=== PATIENT | male | born 1960 | race Caucasian/White ===

== ENCOUNTER 2021-05-10 11:28 | Outpatient (REF) | payer BC, SELFPAY ==
[2021-05-10 13:57] LABS: Glucose Urine UA NEG (NEG); Leukocyte Esterase Urine NEG (NEG); Nitrite Urine NEG (NEG); Specific Gravity - Urine 1.025 (1.005-1.025); Urine Blood NEG (NEG); Urine Ketones NEG (NEG); Urine Protein NEG (NEG-TRACE)
[2021-05-10 13:58] LABS: Appearance Urine CLEAR; Color Urine YELLOW
[2021-05-10 14:02] LABS: Hematocrit 46.5 % (42-52); Hemoglobin 15.5 g/dl (14.0-18.0); Mean Corpuscular HGB Conc 33.3 g/dl (31.0-36.0); Mean Corpuscular Hemoglobin 28.2 pg (27.0-33.0); Mean Corpuscular Volume 84.7 fL (80-98); Mean Platelet Volume 10.1 fL (9.4-12.4); Platelet Count 197 X10*3/uL (160-400); Red Blood Count 5.49 X10*6/uL (4.60-5.80); Red Cell Distribution Width 13.9 % (11.0-16.0); White Blood Count 8.4 X10*3/uL (4.8-10.8)
[2021-05-10 14:05] LABS: RBC Urine 0 /HPF (0); Squamous Epithelial Cell Urine 1+ /LPF; WBC Urine 0 /HPF (0-4)
[2021-05-10 14:14] LABS: Alanine Aminotransferase 42 U/L (0-40); Albumin Level 4.4 g/dL (3.5-5.0); Alkaline Phosphatase 81 U/L (39-117); Anion Gap 13 (12-20); Aspartate Amino Transferase 38 U/L (5-37); Blood Urea Nitrogen 19 mg/dL (9-16); Calcium 9.3 mg/dL (8.4-10.2); Carbon Dioxide 23 mmol/L (22-29); Chloride 109 mmol/L (96-108); Cholesterol 121 mg/dL; Estimated Glomerular Filt Rate > 60; Glucose Fasting 104 mg/dL (60-99); HDL Cholesterol 36 mg/dL; LDL Cholesterol Calculated 69 mg/dl; Magnesium 2.1 mg/dL (1.6-2.6); Potassium 4.3 mmol/L (3.3-5.1); Sodium 141 mmol/L (135-145); Total Protein 7.7 g/dL (6.5-8.0); Triglycerides 83 mg/dL
== END 2021-05-10 11:29 | disposition home or self-care (01) ==
LOC: HO.HMGCLDS 11:28
PROVIDERS: PCP Internal Medicine; Visit Provider Internal Medicine
DX: E78.5 Hyperlipidemia, unspecified (principal); I10 Essential (primary) hypertension; I25.10 Atherosclerotic heart disease of native coronary artery without angina pectoris
CPT/HCPCS: 36415; 80053; 80061; 81001; 83735; 85027

== ENCOUNTER 2021-05-24 14:27 | Outpatient (REF) | payer BC, SELFPAY ==
--- NOTE | ~2021-05-24 | XR_ITS ---
EXAMINATION: XR CHEST CLINICAL INFORMATION: Cough. COMPARISON: None TECHNIQUE: 2 views of the chest were obtained. FINDINGS: The lungs are well-expanded and clear of acute pneumonic process. There are bilateral lower lobe nipple shadows. There are median sternotomy sutures and mediastinal from previous CABG. The heart size and the great vessels are normal caliber. There is moderate spondylosis lower ventral dorsal spine.. XR/XR chest 2V IMPRESSION: No acute cardiopulmonary process seen. Previous CABG changes are noted.
== END 2021-05-24 14:28 | disposition home or self-care (01) ==
LOC: HO.HMGCX 14:27
PROVIDERS: Visit Provider Internal Medicine
DX: R05 Cough (principal)
CPT/HCPCS: 71046

== ENCOUNTER 2021-06-17 09:10 | Outpatient (REF) | payer BC, SELFPAY ==
[2021-06-19 08:16] LABS: SARS COV2 IgG Negative (Negative)
== END 2021-06-17 09:11 | disposition home or self-care (01) ==
LOC: HO.HMGCLDS 09:10
PROVIDERS: PCP Internal Medicine; Visit Provider Internal Medicine
DX: Z20.822 Contact with and (suspected) exposure to COVID-19 (principal); R05 Cough
CPT/HCPCS: 36415; 86769

== ENCOUNTER 2021-11-04 09:16 | Outpatient (REF) | payer BC, SELFPAY ==
[2021-11-04 11:21] LABS: Hemoglobin 15.2 g/dl (14.0-18.0); Mean Corpuscular Hemoglobin 28.2 pg (27.0-33.0); Mean Corpuscular Volume 85.3 fL (80.0-98.0); Mean Platelet Volume 9.5 fL (9.4-12.4); Platelet Count 198 X10*3/uL (160-400); Red Blood Count 5.39 X10*6/uL (4.60-5.80); White Blood Count 8.5 X10*3/uL (4.8-10.8)
[2021-11-04 11:51] LABS: Alanine Aminotransferase 35 U/L (0-40); Alkaline Phosphatase 90 U/L (39-117); Anion Gap 12 (12-20); Aspartate Amino Transferase 23 U/L (5-37); Bilirubin Total 1.2 mg/dL (0.0-1.0); Blood Urea Nitrogen 10 mg/dL (9-16); Calcium 9.1 mg/dL (8.4-10.2); Carbon Dioxide 26 mmol/L (22-29); Chloride 109 mmol/L (96-108); Cholesterol 101 mg/dL; Estimated Glomerular Filt Rate > 60; Glucose Fasting 100 mg/dL (60-99); HDL Cholesterol 32 mg/dL; LDL Cholesterol Calculated 53 mg/dl; Potassium 3.9 mmol/L (3.3-5.1); Sodium 143 mmol/L (135-145); Total Protein 7.2 g/dL (6.5-8.0); Triglycerides 80 mg/dL
== END 2021-11-04 09:17 | disposition home or self-care (01) ==
LOC: HO.HMGCLDS 09:16
PROVIDERS: Visit Provider Internal Medicine
DX: Z00.00 Encounter for general adult medical examination without abnormal findings (principal); Z12.5 Encounter for screening for malignant neoplasm of prostate; E53.8 Deficiency of other specified B group vitamins; E78.5 Hyperlipidemia, unspecified; I10 Essential (primary) hypertension
CPT/HCPCS: 36415; 80053; 80061; 84153; 85027

== ENCOUNTER 2022-07-29 08:42 | Outpatient (REF) | payer BC, SELFPAY ==
[2022-07-29 11:22] LABS: MANUAL DIFF FLAG NO
[2022-07-29 11:36] LABS: Appearance Urine Clear; Color Urine Yellow; Glucose Urine UA Negative (Negative); Leukocyte Esterase Urine Negative (Negative); Nitrite Urine Negative (Negative); PH 5.5 (5.0-9.0); Urine Blood Negative (Negative); Urine Ketones Negative (Negative); Urine Protein Negative (Neg-Trace)
[2022-07-29 11:39] LABS: Bacteria Urine None Seen (None Seen); Hyaline Casts Urine 0-2 /LPF (0-2); RBC Urine 0-2 /HPF (0-2); Squamous Epithelial Cell Urine 0-2 /HPF (0-2); WBC Urine 0-5 /HPF (0-5)
[2022-07-29 12:07] LABS: Eosinophils Absolute Auto 0.6 X10*3/uL (0.0-0.4); Hematocrit 46.4 % (42.0-52.0); Hemoglobin 15.6 g/dl (14.0-18.0); Imm Gran Abs Auto 0.02 X10*3/uL (0.00-0.03); Imm Gran Pct Auto 0.2 % (0.0-0.4); Lymphocytes Absolute Auto 2.4 X10*3/uL (1.2-4.9); Lymphocytes Percent Auto 27.3 % (20-40); Mean Corpuscular HGB Conc 33.6 g/dl (31.0-36.0); Mean Corpuscular Hemoglobin 28.6 pg (27.0-33.0); Mean Corpuscular Volume 85.1 fL (80.0-98.0); Mean Platelet Volume 9.9 fL (9.4-12.4); Monocytes Absolute Auto 0.9 X10*3/uL (0.1-1.2); Monocytes Percent Auto 9.8 % (2-11); Neutrophils Absolute Auto 4.8 x10*3/uL (2.0-8.3); Neutrophils Percent Auto 55.7 % (45-73); Platelet Count 188 X10*3/uL (160-400); Red Blood Count 5.45 X10*6/uL (4.60-5.80); White Blood Count 8.7 X10*3/uL (4.8-10.8)
[2022-07-29 12:14] LABS: Folate 18.1 ng/mL (> or = 4.0); Vitamin B12 267 pg/mL (200-900)
[2022-07-29 12:45] LABS: Alanine Aminotransferase 49 U/L (0-40); Albumin Level 4.2 g/dL (3.5-5.0); Alkaline Phosphatase 82 U/L (39-117); Anion Gap 15 (12-20); Aspartate Amino Transferase 39 U/L (5-37); Bilirubin Total 1.1 mg/dL (0.0-1.0); Blood Urea Nitrogen 16 mg/dL (9-16); Calcium 8.8 mg/dL (8.4-10.2); Carbon Dioxide 22 mmol/L (22-29); Chloride 108 mmol/L (96-108); Cholesterol 108 mg/dL; Estimated Glomerular Filt Rate > 60; Glucose Random 102 mg/dL (60-115); HDL Cholesterol 36 mg/dL; LDL Cholesterol Calculated 60 mg/dl; Potassium 4.1 mmol/L (3.3-5.1); Sodium 141 mmol/L (135-145); Total Protein 7.2 g/dL (6.5-8.0); Triglycerides 61 mg/dL
[2022-07-29 14:04] LABS: PSA,Total (Free>4and<10) 0.25 ng/mL (0.00-4.00)
== END 2022-07-29 08:43 | disposition home or self-care (01) ==
LOC: HO.HMGCLDS 08:42
PROVIDERS: PCP Internal Medicine; Visit Provider Internal Medicine
DX: R10.11 Right upper quadrant pain (principal); I10 Essential (primary) hypertension; E78.5 Hyperlipidemia, unspecified; Z12.5 Encounter for screening for malignant neoplasm of prostate
CPT/HCPCS: 36415; 80053; 80061; 81001; 82607; 82746; 84153; 85025

== ENCOUNTER 2022-07-31 09:28 | Outpatient (REF) | payer BC, SELFPAY ==
--- NOTE | ~2022-07-31 | US_ITS ---
EXAMINATION: US ABDOMEN COMPLETE CLINICAL INFORMATION: Upper abdominal pain. COMPARISON: None TECHNIQUE: Real-time imaging of the abdominal viscera. FINDINGS: PANCREAS: Obscured by bowel gas. ABDOMINAL AORTA: The proximal, mid, and distal segments are normal in caliber. INFERIOR VENA CAVA: Visualized portions are normal. LIVER: Liver is prominent and increased in echotexture. No focal masses. No intrahepatic biliary dilatation. GALLBLADDER: There may be few tiny dependent stones in the gallbladder but no gallbladder wall thickening or pericholecystic fluid. COMMON BILE DUCT: Normal in caliber measuring 0.2 cm in diameter. RIGHT KIDNEY: The right kidney measures 11.2 cm in length and is nonhydronephrotic. There is an upper pole cyst at 10 mm. There is an upper pole stone at 3 mm. LEFT KIDNEY: Left kidney measures 12.5 cm in length. There is an upper pole stone at 4 mm. No hydronephrosis. No mass. SPLEEN: Normal. The spleen measures 11.3 cm in maximum dimension. FREE FLUID: None. US/US abdomen complete IMPRESSION: Small bilateral nephroliths. No hydronephrosis. Probable small gallstones. No biliary dilatation.
== END 2022-07-31 09:29 | disposition home or self-care (01) ==
LOC: HO.HMGCX 09:28
PROVIDERS: PCP Internal Medicine; Visit Provider Internal Medicine
DX: R10.11 Right upper quadrant pain (principal)
CPT/HCPCS: 76700

== ENCOUNTER 2022-11-17 09:14 | Outpatient (REF) | payer BC, SELFPAY ==
[2022-11-17 12:57] LABS: Alanine Aminotransferase 47 U/L (0-40); Albumin Level 4.1 g/dL (3.5-5.0); Alkaline Phosphatase 82 U/L (39-117); Anion Gap 12 (12-20); Aspartate Amino Transferase 33 U/L (5-37); Bilirubin Total 1.6 mg/dL (0.0-1.0); Blood Urea Nitrogen 14 mg/dL (9-16); Carbon Dioxide 25 mmol/L (22-29); Chloride 109 mmol/L (96-108); Estimated Glomerular Filt Rate > 60; Glucose Fasting 104 mg/dL (60-99); Potassium 4.1 mmol/L (3.3-5.1); Sodium 142 mmol/L (135-145)
[2022-11-17 13:15] LABS: Folate 14.6 ng/mL (> or = 4.0); Vitamin B12 363 pg/mL (200-900)
== END 2022-11-17 09:15 | disposition home or self-care (01) ==
LOC: HO.HMGCLDS 09:14
PROVIDERS: Visit Provider Internal Medicine
DX: Z00.00 Encounter for general adult medical examination without abnormal findings (principal); E53.8 Deficiency of other specified B group vitamins; I10 Essential (primary) hypertension; E78.5 Hyperlipidemia, unspecified; I25.10 Atherosclerotic heart disease of native coronary artery without angina pectoris
CPT/HCPCS: 36415; 80053; 82607; 82746

== ENCOUNTER 2022-12-03 10:00 | Outpatient (RCR) | payer BC, SELFPAY ==
[2022-10-24 10:07] VITALS: BP 140/82
--- NOTE | 2022-10-24 10:59 | MHC.PT.EP ---
[facility] [place] Office [place] Office [place] Office [address] [phone] F: [phone] F: [phone] F: [phone] F: [phone] Physical Therapy Plan of Care Date of Evaluation: Date of Surgery: Diagnosis: pain in L shoulder Assessment: 62 y/o RHD male referred to PT with L shoulder pain. S/s consistent with L shoulder impingement (? tear) and overlapping cervical derangement resulting in pain and difficulty with dressing, grooming, lifting, reaching, and work duties at a paper factory secondary to decreased cervical and shoulder AROM, decreased L shoulder strength, impaired postural awareness, TTP L cervical/shoulder region, pain, and referred L shoulder pain with cervical ROM. Recommend PT 2x/week for 2 weeks and then decrease to 1x/week as he has 20 visit hard limit per calendar year. POC to include STM/MFR, taping, cervical/chest stretching, ROM at shoulder/cervical region, and scapular/RTC strengthening. Frequency and Duration: The patient will be seen 2x/week for 6 weeks Short Term Goals: 3 weeks Compliant with HEP Improve L shoulder ROM to 130 actively with pain < 3/10 Detention Goals: 6 weeks I with HEP and self management of sx Pt will be able to don/doff jacket with pain < 3/10 Improve L shoulder strength to 4/5 throughout to faciliate lifting Treatment Plan: Modalities to reduce pain, spasms and effusion. Manual therapy to restore motion and function. Therapeutic exercise to improve strength and flexibility. Neuromuscular re-education for posture and balance. Therapeutic activities to return to functional activities of daily living. Electronically signed by: Kareen Weathers PT Please sign and return to therapist. Thank you for your referral.
--- NOTE | 2022-12-05 11:02 | MHC.PT.DC ---
[facility] [place] Office [place] Office [place] Office [address] [phone] F: [phone] F: [phone] F: [phone] F: [phone] Physical Therapy Discharge Report Diagnosis: pain in L shoulder Date of Surgery: Date of Evaluation: 10/24/22 Date of Discharge: 12/05/22 Treatments to Date: 9 Cancellations to Date: 0 No Shows to Date: 0 Discharge Status: Independent with HEP Recommend MD Follow-up Discharge Summary: Pt reports overall feeling the same. Recommend f/u with doctor for further management. He is to continue with I HEP as well. Electronically signed by: Kareen ortez PT Please sign and return to therapist. Thank you for your referral.
== END 2022-12-05 11:02 | disposition home or self-care (01) ==
LOC: HO.PTCHIC 10:00
PROVIDERS: PCP Internal Medicine; Visit Provider Internal Medicine
DX: M25.512 Pain in left shoulder (principal)
CPT/HCPCS: 97110; 97140; 97162

== ENCOUNTER 2023-01-13 09:57 | Outpatient (REF) | payer BC, SELFPAY ==
--- NOTE | ~2023-01-13 | XR_ITS ---
EXAMINATION: XR SHOULDER, LEFT CLINICAL INFORMATION: Pain. COMPARISON: None available. TECHNIQUE: Three views of the left shoulder. FINDINGS: No acute fractures or subluxation. Mild degenerative osteoarthritis of the acromioclavicular and glenohumeral joints. No abnormal soft tissue calcifications. Partially imaged mediastinal surgical clips. XR/XR shoulder LT min 2V IMPRESSION: No acute fractures or subluxation. Mild degenerative osteoarthritis.
== END 2023-01-13 09:58 | disposition home or self-care (01) ==
LOC: HO.HOSX 09:57
PROVIDERS: Visit Provider Physician Assistant
DX: S46.002A Unspecified injury of muscle(s) and tendon(s) of the rotator cuff of left shoulder, initial encounter (principal)
CPT/HCPCS: 20610; 73030; J1040

== ENCOUNTER → 2023-04-13 08:16 | Outpatient (BNVA) | payer BC, SELFPAY | PROVIDERS: PCP Internal Medicine; Visit Provider Physician Assistant | DX: S46.002A Unspecified injury of muscle(s) and tendon(s) of the rotator cuff of left shoulder, initial encounter (principal) | CPT/HCPCS: 20610; J1040 ==

== ENCOUNTER 2023-04-27 11:31 | Outpatient (AMB) | payer BC, SELFPAY ==
[2023-04-27 11:57] VITALS: BP 124/68; PULSE 75; BMI 33.9
--- NOTE | 2023-04-27 11:57 | A.OFFVIS_ITS ---
Intake Vital Signs 04/27/23 11:57 Height 5 ft 9 in Weight 229 lb 4.492 oz BMI 33.9 BP 124/68 Blood Pressure Location Lt brachial Position Sitting Pulse 75 Intake Visit Reasons: Colonoscopy Screening Intake Note: Blaine presents in office as a new.patient for a colonoscopy screening PT CC: pt reports having no concerns , 2nd colonoscopy screening pt denies any other GI Issues Vascular Surgeon Required: No Accompanied by: Daughter Allergies THEODORE Inhibitors Adverse Reaction (Intermediate, Verified 04/27/23 11:57) cough losartan Adverse Reaction (Intermediate, Verified 04/27/23 11:57) Cough HPI Colonoscopy Screening HPI Details Patient was sent to us by his PCP.? ? Patient denies any gastrointestinal symptoms in the past or at present.? However patient does reports occasional postprandial epigastric discomfort. Patient reports family history of gastric cancer. Patient's grandfather of gastric CA. Denies any personal or family history of gastrointestinal disease, colon polyps, or colorectal cancer.? Denies history of difficulty with sedation or anesthesia in the past.? Negative for history of sleep apnea, however patient does snore when sleeping on his back. Denies any history of renal, pulmonary, or hepatic disease.?? No history of infectious? diseases like hepatitis A, B, C, HIV or tuberculosis.? Patient is on low-dose aspirin. Status post CABG x3 in October of 2020. Patient currently is seeing Dr. Graham at [facility] and reports to have no symptoms. No cardiac or respiratory symptoms at this time. [facility] Medical History Annual physical exam CAD (coronary artery disease) Cough HTN (hypertension) Hyperlipidemia Vitamin B 12 deficiency Surgical History S/P CABG x 3 Social History Housing: House Patient Tobacco Use Status: Former Tobacco user Years Smoked: 40 years e-Cigarette/Vaping Use: Never Used Current occupational status: employed Current occupation: [employer] Cognitive needs: No Hearing needs: No Vision needs: No Review of Systems Const Denies weight gain and Denies weight loss ENT Reports no additional complaints, Denies dysphagia and Denies odynophagia Card Reports no additional complaints Resp Reports no additional complaints GI Reports abdominal pain (Epigastric pain postprandially), Denies belching, Denies melena, Denies bloating, Denies change in bowel habits, Denies dysphagia, Denies excessive flatus, Denies dyspepsia, Denies heartburn, Denies diarrhea, Denies loose stools, Denies nausea, Denies odynophagia and Denies vomiting Reports no additional complaints Musc Reports no additional complaints Neuro Reports no additional complaints Psych Reports no additional complaints Endo Reports no additional complaints Physical Exam Vital Signs: Last Vital Signs Pulse 75 04/27/23 11:57 BP 124/68 04/27/23 11:57 BMI result Body Mass Index 33.9 Const General: healthy appearing, no acute distress and well developed Nutritional Appearance: obese Orientation/consciousness: patient oriented x3 HEENT Head: Yes normal to inspection, Yes normocephalic and Yes atraumatic Face and sinus: Yes normal facial exam Mouth: Normal oral and palatal mucosa present Throat: Yes posterior oropharynx normal, Yes tonsils normal and Yes uvula midline Eyes General: appearance normal, both eyes and all related structures Neck Neck: Yes normal visual inspection, Yes full ROM and Yes trachea midline Thyroid: Thyroid normal Resp Effort & Inspection: normal respiratory effort, able to speak in complete sentences, no tracheal deviation and symmetric chest movement Auscultation: clear to auscultation bilaterally Cardio Rate: regular rate Heart sounds: S1 normal heart sound present and S2 normal heart sound present GI Inspection: Yes normal to inspection, No distended and Yes obesity Palpation (GI): Soft to palpation, not firm, nontender and No hepatosplenomegaly present Auscultation: normal bowel sounds General: Yes no CVA tenderness Back/Spine/Pelvis Back: no CVA tenderness Skin General skin exam: elasticity normal, turgor normal and dry skin Neuro General: patient oriented x3 Psych Appearance: grossly normal Mental Status: mental status grossly normal Speech and movement: Normal speech and movement present Affect: normal affect Assessment & Plan Assessment & Plan (1) Screen for colon cancer: Code(s): Z12.11 - Encounter for screening for malignant neoplasm of colon Plan: Patient denies any GI, cardiac or respiratory symptoms.? As mentioned above patient has a history of cardiac bypass. Sees numerical control machine machinist at [facility]. Has an appointment with him in June. Please call the office for clearance. Currently patient has no symptoms. However patient does report epigastric discomfort postprandially depending on what he eats. Patient reports that he is moving his bowels daily without any issues. Denies any issues with anesthesia in the past.? Denies any history of sleep apnea, snores when he sleeps on his back.? No history infectious diseases in the past or present.? On low-dose aspirin.? No family or personal history of colon cancer or polyps.? Patient denies melena, hematochezia, unintentional weight loss or ribbon like stools.? Discussed at length the pre-procedure,? prep, diet & medications as well as what to expect prior, during and after the procedure.?? Stressed the importance of good bowel prep. ?Recommended the use of Vaseline or Calmoseptine OTC & baby wipes with bowel movements to promote comfort.? ?Patient verbalizes understanding and agrees to plan of care.? He was given the opportunity to ask questions and all questions answered.? We will see him after the procedure.? (2) Postprandial epigastric pain: Code(s): R10.13 - Epigastric pain Plan: Postprandially gastric discomfort. Avoiding dietary triggers discussed with patient. Staying upright for minimum 3 hours after meals discussed with patient as well. Patient's grandfather from stomach cancer. Patient will be sent for upper endoscopy. We will hold off on starting him on PPI or H2 zenia. Patient might need to be started after the procedure depending on biopsy results and his symptoms. I will see him after the procedure, sooner on as needed basis. Patient is agreeable to this plan and verbalizes understanding of instructions. He was given the opportunity to ask questions and all questions answered. Thank you for allowing me to participate in his care Medications: New bisacodyl (Dulcolax (bisacodyl)) take 2 tabs at noon the day before your colonoscopy 10 mg (2 x 5 mg) PO ONCE 1 day 2 tabs 0RF Z12.11 - Encounter for screening for malignant neoplasm of colon polyethylene glycol 3350 (Miralax) As directed by gastroenterology department at [facility] 238 grams PO ONCE 238 grams 0RF Z12.11 - Encounter for screening for malignant neoplasm of colon Coding Level of Care Code New Pt Level 3 (40694) Diagnoses Screen for colon cancer Z12.11 Postprandial epigastric pain R10.13 Time Spent (min) 40 Comment 30 minutes spent with patient and additional 10 minutes spent reviewing his records
== END 2023-04-27 12:52 | disposition home or self-care (01) ==
PROVIDERS: PCP Internal Medicine; Visit Provider Nurse Practitioner Family
DX: Z01.818 Encounter for other preprocedural examination (principal); Z12.11 Encounter for screening for malignant neoplasm of colon; R10.13 Epigastric pain
CPT/HCPCS: S0285

== ENCOUNTER → 2023-04-27 11:31 | Outpatient (BNVA) | payer BC, SELFPAY | PROVIDERS: PCP Internal Medicine; Visit Provider Nurse Practitioner Family ==

== ENCOUNTER 2023-05-25 11:16 | Outpatient (AMB) | payer BC, SELFPAY ==
--- NOTE | 2023-05-25 11:28 | AM.OFFVISNUR ---
Intake Intake Visit Reasons: B12 Intake Note: Pt arrived for monthly B12,he missed injection in April. Allergies THEODORE Inhibitors Adverse Reaction (Intermediate, Verified 04/27/23 11:57) cough losartan Adverse Reaction (Intermediate, Verified 04/27/23 11:57) Cough Office Meds cyanocobalamin (vitamin B-12) Performing Provider: Yanely Mcgraw MD Administered by: Lisa Graham RN on 05/25/23 11:29 Dose Route Admin Location Lot Number Expiration Date [facility] Range Scientist 1,000 mcg IM right deltoid [id number] 08/19/24 1011-2647-44 [facility] Comments: Pt supplied Coding Diagnoses Assessment & Plan Assessment & Plan Orders: Orders AMB Vitamin B12 Injection Patient Supplied Today E53.8 - Deficiency of other specified B group vitamins
== END 2023-05-25 13:10 | disposition home or self-care (01) ==
PROVIDERS: PCP Internal Medicine; Visit Provider Internal Medicine
DX: E53.8 Deficiency of other specified B group vitamins (principal)
CPT/HCPCS: 96372; J3420

== ENCOUNTER 2023-07-01 11:28 | Outpatient (AMB) | payer BC, SELFPAY ==
--- NOTE | 2023-07-01 11:37 | AM.OFFVISNUR ---
Intake Intake Visit Reasons: B12 Intake Note: Pt arrived for monthly B12 injection Allergies THEODORE Inhibitors Adverse Reaction (Intermediate, Verified 04/27/23 11:57) cough losartan Adverse Reaction (Intermediate, Verified 04/27/23 11:57) Cough Office Meds cyanocobalamin (vitamin B-12) 1,000 mcg/mL injection solution Performing Provider: Yanely Mcgraw MD [facility] Administered by: Lisa Graham RN on 07/01/23 11:38 Dose Route Admin Location Dispensed Lot Number Expiration Date [employer] Film Processing Supervisor 1,000 mcg IM left deltoid 1 mL [id number] 05/19/24 9781-0632-60 [facility] Comments: Pt supplied Coding Assessment & Plan Assessment & Plan Orders: Orders AMB Vitamin B12 Injection Patient Supplied Today E53.8 - Deficiency of other specified B group vitamins
== END 2023-07-01 12:25 | disposition home or self-care (01) ==
LOC: HO.HMGC 11:28
PROVIDERS: PCP Internal Medicine; Visit Provider Internal Medicine
DX: E53.8 Deficiency of other specified B group vitamins (principal)
CPT/HCPCS: 96372; J3420

== ENCOUNTER 2023-08-04 11:13 | Outpatient (AMB) | payer BC, SELFPAY ==
--- NOTE | 2023-08-04 11:17 | AM.OFFVISNUR ---
Intake Intake Visit Reasons: B12 Allergies THEODORE Inhibitors Adverse Reaction (Intermediate, Verified 04/27/23 11:57) cough losartan Adverse Reaction (Intermediate, Verified 04/27/23 11:57) Cough Office Meds cyanocobalamin (vitamin B-12) 1,000 mcg/mL injection solution Performing Provider: Yanely Mcgraw MD Performing Location[facility] Administered by: Renee Byrd RN on 08/04/23 11:20 Dose Route Admin Location Dispensed Lot Number Expiration Date [facility] Artificial [employer] [place] 1,000 mcg IM Right deltoid 1 mL [id number] 06/17/24 0181-0370-62 [facility] Comments: Pt supplied Coding Assessment & Plan Assessment & Plan Orders: Orders AMB Vitamin B12 Injection Patient Supplied Today E53.8 - Deficiency of other specified B group vitamins
== END 2023-08-04 12:27 | disposition home or self-care (01) ==
LOC: HO.HMGC 11:13
PROVIDERS: PCP Internal Medicine; Visit Provider Internal Medicine
DX: E53.8 Deficiency of other specified B group vitamins (principal)
CPT/HCPCS: 96372; J3420

== ENCOUNTER 2023-08-24 10:30 | Outpatient (AMB) | payer BC, SELFPAY ==
[2023-08-24 10:32] VITALS: BP 120/74; PULSE 102; O2SAT 96; BMI 33.7
--- NOTE | 2023-08-24 10:32 | A.OFFPC_ITS ---
Vital Signs 08/24/23 10:32 Height 5 ft 9 in Weight 228 lb BMI 33.7 BP 120/74 Blood Pressure Location Lt brachial Position Sitting Pulse 102 H Pulse Source Pulse Oximeter Pulse Oximetry (%) 96 Oxygen Delivery Method Room Air Intake Visit Reasons: sore throat Intake Note: Pt is here today for a sick visit. Pt c/o sore throat cough, fever since Thursday. Pt states that he was also bit by a tick. Allergies THEODORE Inhibitors Adverse Reaction (Intermediate, Verified 08/24/23 10:38) cough losartan Adverse Reaction (Intermediate, Verified 08/24/23 10:38) Cough Medication List - Last Reconciled 08/24/23 by Yanely Mcgraw MD albuterol sulfate 90 mcg/actuation 2 puffs inhalation Q6H PRN amlodipine 5 mg PO DAILY ascorbic acid (vitamin C) 500 mg PO DAILY aspirin 81 mg PO DAILY atorvastatin 80 mg PO DAILY benzonatate 100 mg PO TID bisacodyl (Dulcolax (bisacodyl)) 10 mg (2 x 5 mg) PO ONCE 1 day cyanocobalamin (vitamin B-12) 1,000 mcg subcut Q4W hydralazine 100 mg PO BID metoprolol tartrate 50 mg PO BID polyethylene glycol 3350 (Miralax) 238 grams PO ONCE sumatriptan succinate 1 tabl at onset of headache, repeat in 2 hrs as needed orally every 2 hours PRN; do not exceed 2 doses per 24 hrs Tobacco use date assessed: 08/24/23 Dental Screening Dental Screen Date: 08/24/23 Did you have a dental visit in the last 12 months?: Yes Did you have a dental problem in the last 6 months where you did not have access to dental care?: No Was dental information given to patient?: Patient has dentist HPI sore throat HPI Details Pt c/o sore throat, nasal congestion, cough, fever for 3 days. HTN is controlled. [facility] Medical History Annual physical exam CAD (coronary artery disease) Cough HTN (hypertension) Hyperlipidemia Vitamin B 12 deficiency Surgical History S/P CABG x 3 Social History Housing: House Patient Tobacco Use Status: Former Tobacco user Years Smoked: 40 years e-Cigarette/Vaping Use: Never Used Current occupational status: employed Current occupation: [employer] Cognitive needs: No Hearing needs: No Vision needs: No Questionnaire Thrive Questionnaire Date Thrive assessed: 07/29/22 SOTO-7 AMB Questionnaire SOTO-7 Date SOTO - 7 assessed: 07/29/22 Source: Developed by Drs. Ciro Leiva, Julissa Rey, Manpreet Sherman and colleagues, with an educational alice from [employer]. Review of Systems Const All systems reviewed & are unremarkable except as noted in HPI and below Reports no additional complaints Eyes Reports no additional complaints ENT Reports no additional complaints Resp Reports no additional complaints GI Reports no additional complaints Reports no additional complaints Physical exam (Primary Care) Vital Signs: Last Vital Signs Pulse 102 H 08/24/23 10:32 BP 138/74 08/24/23 10:32 Pulse Ox 96 08/24/23 10:32 Oxygen Delivery Method Room Air 08/24/23 10:32 BMI result Body Mass Index 33.7 Tobacco/Smoking Status: Tobacco use Status Tobacco use date assessed 08/24/23 08/24/23 10:38 Patient Tobacco Use Status Former Tobacco user 08/24/23 10:38 e-Cigarette/Vaping Use Never Used 08/24/23 10:38 Thrive Assessment: Date of Thrive Assessment Date Thrive assessed 07/29/22 08/24/23 10:38 Const General: no acute distress HENMT Ears: hearing grossly normal bilaterally and TM's normal bilaterally Face and sinus: Yes normal facial exam and No sinus tenderness Throat: Yes posterior oropharynx abnormal (erythema) and Yes postnasal drainage Eyes General: appearance normal, both eyes and all related structures Resp Effort & Inspection: normal respiratory effort Auscultation: clear to auscultation bilaterally Cardio Rhythm: regular rhythm Heart sounds: S1 normal heart sound present and S2 normal heart sound present GI Inspection: Yes normal to inspection Palpation (GI): Soft to palpation Assessment and Plan Assessment & Plan (1) HTN (hypertension): Comment: Intolerant to THEODORE inhibitors and ARBs Code(s): I10 - Essential (primary) hypertension Plan: Continue current medications, pt will return for fasting blood work (2) Hyperlipidemia: Code(s): E78.5 - Hyperlipidemia, unspecified Plan: Continue statin (3) CAD (coronary artery disease): Comment: CABG 3 vessels 10/2020, f/u PVC Dr. Ozuna Code(s): I25.10 - Atherosclerotic heart disease of [place] coronary artery without angina pectoris (4) Hyperglycemia: Code(s): R73.9 - Hyperglycemia, unspecified (5) URI (upper respiratory infection): Code(s): J06.9 - Acute upper respiratory infection, unspecified Plan: SUPPORTIVE CARE DISCUSSED WITH THE PATIENT ,CHECK RESPIRATORY PANEL Orders: Orders SARS-CoV2/FLU/RSV Today J06.9 - Acute upper respiratory infection, unspecified Comprehensive [place]. Panel Fast Today E78.5 - Hyperlipidemia, unspecified, I10 - Essential (primary) hypertension, I25.10 - Atherosclerotic heart disease of [place] coronary artery without angina pectoris, R73.9 - Hyperglycemia, unspecified Complete Blood Count Auto Diff Today E78.5 - Hyperlipidemia, unspecified, I10 - Essential (primary) hypertension, I25.10 - Atherosclerotic heart disease of [place] coronary artery without angina pectoris, R73.9 - Hyperglycemia, unspecified Lipid Panel Today E78.5 - Hyperlipidemia, unspecified, I10 - Essential (primary) hypertension, I25.10 - Atherosclerotic heart disease of [place] coronary artery without angina pectoris, R73.9 - Hyperglycemia, unspecified Hemoglobin A1c Today E78.5 - Hyperlipidemia, unspecified, I10 - Essential (primary) hypertension, I25.10 - Atherosclerotic heart disease of [place] coronary artery without angina pectoris, R73.9 - Hyperglycemia, unspecified PSA,Total (Free>4and<10) Today E78.5 - Hyperlipidemia, unspecified, I10 - Essential (primary) hypertension, I25.10 - Atherosclerotic heart disease of [place] coronary artery without angina pectoris, R73.9 - Hyperglycemia, unspecified UA w Microscopic Today E78.5 - Hyperlipidemia, unspecified, I10 - Essential (primary) hypertension, I25.10 - Atherosclerotic heart disease of [place] coronary artery without angina pectoris, R73.9 - Hyperglycemia, unspecified Coding Level of Care Code Est Pt Level 3 (16426) Diagnoses HTN (hypertension) I10 Hyperlipidemia E78.5 CAD (coronary artery disease) I25.10 Hyperglycemia R73.9 URI (upper respiratory infection) J06.9
== END 2023-08-24 11:16 | disposition home or self-care (01) ==
PROVIDERS: PCP Internal Medicine; Visit Provider Internal Medicine
DX: I10 Essential (primary) hypertension (principal); E78.5 Hyperlipidemia, unspecified; I25.10 Atherosclerotic heart disease of native coronary artery without angina pectoris; R73.9 Hyperglycemia, unspecified; J06.9 Acute upper respiratory infection, unspecified
CPT/HCPCS: 99213

== ENCOUNTER 2023-08-24 11:05 | Outpatient (REF) | payer BC, SELFPAY ==
[2023-08-24 15:00] LABS: Influenza A PCR NEGATIVE (Negative); Influenza B PCR NEGATIVE (Negative); Resp Syncy Virus RNA Qual PCR NEGATIVE (Negative); SARS COV2 PCR INHOUSE POSITIVE (Negative)
== END 2023-08-24 11:06 | disposition home or self-care (01) ==
LOC: HO.LAB 11:05
PROVIDERS: Visit Provider Internal Medicine
DX: Z11.52 Encounter for screening for COVID-19 (principal); J06.9 Acute upper respiratory infection, unspecified
CPT/HCPCS: 0241U

== ENCOUNTER 2023-09-01 09:40 | Outpatient (REF) | payer BC, SELFPAY ==
[2023-09-01 11:44] LABS: MANUAL DIFF FLAG NO
[2023-09-01 11:48] LABS: Appearance Urine Clear; Color Urine Yellow; Glucose Urine UA Negative (Negative); Leukocyte Esterase Urine Negative (Negative); Nitrite Urine Negative (Negative); Specific Gravity - Urine 1.025 (1.005-1.025); Urine Blood Negative (Negative); Urine Ketones Negative (Negative); Urine Protein Trace mg/dL (Neg-Trace)
[2023-09-01 12:00] LABS: Estimated Average Glucose 111 mg/dL; Hemoglobin A1c % 5.5 % (<6.0)
[2023-09-01 12:06] LABS: Bacteria Urine None Seen (None Seen); Hyaline Casts Urine 0-2 /LPF (0-2); RBC Urine 0-2 /HPF (0-2); Squamous Epithelial Cell Urine 0-2 /HPF (0-2); WBC Urine 0-5 /HPF (0-5)
[2023-09-01 12:14] LABS: Eosinophils Absolute Auto 0.2 X10*3/uL (0.0-0.4); Eosinophils Percent Auto 2.6 % (0-4); Hematocrit 44.1 % (42.0-52.0); Hemoglobin 15.2 g/dl (14.0-18.0); Imm Gran Abs Auto 0.01 X10*3/uL (0.00-0.03); Imm Gran Pct Auto 0.1 % (0.0-0.4); Lymphocytes Absolute Auto 2.3 X10*3/uL (1.2-4.9); Lymphocytes Percent Auto 30.9 % (20-40); Mean Corpuscular HGB Conc 34.5 g/dl (31.0-36.0); Mean Corpuscular Hemoglobin 29.8 pg (27.0-33.0); Mean Corpuscular Volume 86.5 fL (80.0-98.0); Mean Platelet Volume 10.2 fL (9.4-12.4); Monocytes Absolute Auto 0.7 X10*3/uL (0.1-1.2); Monocytes Percent Auto 9.7 % (2-11); Neutrophils Absolute Auto 4.2 x10*3/uL (2.0-8.3); Neutrophils Percent Auto 56.7 % (45-73); Platelet Count 212 X10*3/uL (160-400); Red Cell Distribution Width 12.8 % (11.0-16.0); White Blood Count 7.4 X10*3/uL (4.8-10.8)
[2023-09-01 12:19] LABS: Alanine Aminotransferase 30 U/L (0-40); Albumin Level 4.1 g/dL (3.5-5.0); Alkaline Phosphatase 76 U/L (39-117); Anion Gap 12 (12-20); Aspartate Amino Transferase 30 U/L (5-37); Blood Urea Nitrogen 13 mg/dL (9-16); Calcium 8.8 mg/dL (8.4-10.2); Carbon Dioxide 24 mmol/L (22-29); Chloride 108 mmol/L (96-108); Cholesterol 114 mg/dL (<200); Estimated Glomerular Filt Rate > 60; Glucose Fasting 96 mg/dL (60-99); HDL Cholesterol 35 mg/dL (>40); LDL Cholesterol Calculated 64 mg/dL (<100); Potassium 3.5 mmol/L (3.3-5.1); Sodium 140 mmol/L (135-145); Total Protein 7.4 g/dL (6.5-8.0); Triglycerides 78 mg/dL (<150)
[2023-09-01 12:31] LABS: PSA,Total (Free>4and<10) 0.26 ng/mL (0.00-4.00)
== END 2023-09-01 09:41 | disposition home or self-care (01) ==
LOC: HO.HMGCLDS 09:40
PROVIDERS: PCP Internal Medicine; Visit Provider Internal Medicine
DX: Z12.5 Encounter for screening for malignant neoplasm of prostate (principal); I10 Essential (primary) hypertension; E78.5 Hyperlipidemia, unspecified; I25.10 Atherosclerotic heart disease of native coronary artery without angina pectoris; R73.9 Hyperglycemia, unspecified
CPT/HCPCS: 36415; 80053; 80061; 81001; 83036; 84153; 85025

== ENCOUNTER 2023-09-01 09:54 | Outpatient (AMB) | payer BC, SELFPAY ==
--- NOTE | 2023-09-01 10:10 | AM.OFFVISNUR ---
Intake Intake Visit Reasons: B12 Shot Intake Note: Pt arrived for monthly B 12 injection Allergies THEODORE Inhibitors Adverse Reaction (Intermediate, Verified 08/24/23 10:38) cough losartan Adverse Reaction (Intermediate, Verified 08/24/23 10:38) Cough Office Meds cyanocobalamin (vitamin B-12) 1,000 mcg/mL injection solution Performing Provider: Yanely Mcgraw MD Performing Location: [facility] Administered by: Lisa Graham RN on 09/01/23 10:11 Dose Route Admin Location Dispensed Lot Number Expiration Date [place] Casino Enforcement Agent 1,000 mcg IM left deltoid 1 mL [id number] 05/19/24 [id number] [facility] Comments: Pt supplied Coding Assessment & Plan Assessment & Plan Orders: Orders AMB Vitamin B12 Injection Patient Supplied Today E53.8 - Deficiency of other specified B group vitamins
== END 2023-09-01 10:20 | disposition home or self-care (01) ==
LOC: HO.HMGC 09:54
PROVIDERS: PCP Internal Medicine; Visit Provider Internal Medicine
DX: E53.8 Deficiency of other specified B group vitamins (principal)
CPT/HCPCS: 96372; J3420

== ENCOUNTER 2023-10-07 11:58 | Outpatient (AMB) | payer BC, SELFPAY ==
--- NOTE | 2023-10-07 11:56 | AM.OFFVISNUR ---
Intake Intake Visit Reasons: B-12 Shot Intake Note: Pt arrived for monthly B12 injection Allergies THEODORE Inhibitors Adverse Reaction (Intermediate, Verified 08/24/23 10:38) cough losartan Adverse Reaction (Intermediate, Verified 08/24/23 10:38) Cough Office Meds cyanocobalamin (vitamin B-12) 1,000 mcg/mL injection solution Performing Provider: Yanely Mcgraw MD Performing Location: [facility] Administered by: Lisa Graham RN on 10/07/23 11:57 Dose Route Admin Location Dispensed Lot Number Expiration Date [place] Senior Solutions Architect 1,000 mcg IM right deltoid 1 mL [id number] 08/19/24 4850-7752-46 [facility] Comments: Pt supplied Coding Assessment & Plan Assessment & Plan Orders: Orders AMB Vitamin B12 Injection Patient Supplied Today E53.8 - Deficiency of other specified B group vitamins
== END 2023-10-07 16:14 | disposition home or self-care (01) ==
LOC: HO.HMGC 11:58
PROVIDERS: PCP Internal Medicine; Visit Provider Internal Medicine
DX: E53.8 Deficiency of other specified B group vitamins (principal)
CPT/HCPCS: 96372; J3420

== ENCOUNTER 2023-11-10 11:14 | Outpatient (AMB) | payer BC, SELFPAY ==
--- NOTE | 2023-11-10 11:30 | AM.OFFVISNUR ---
Intake Intake Visit Reasons: B12 Intake Note: Pt arrived for monthly B-12 injection. Allergies THEODROE Inhibitors Adverse Reaction (Intermediate, Verified 08/24/23 10:38) cough losartan Adverse Reaction (Intermediate, Verified 08/24/23 10:38) Cough Office Meds cyanocobalamin (vitamin B-12) 1,000 mcg/mL injection solution Performing Provider: Yanely Mcgraw MD Performing Location: [facility] Administered by: Lisa Graham RN on 11/10/23 11:31 Dose Route Admin Location Dispensed Lot Number Expiration Date [place] Motorcyles Final Inspector 1,000 mcg IM right deltoid 1 mL [id number] 08/19/24 9233-9710-22 [facility] Comments: Pt supplied Coding Assessment & Plan Assessment & Plan Orders: Orders AMB Vitamin B12 Injection Patient Supplied Today E53.8 - Deficiency of other specified B group vitamins
== END 2023-11-10 13:02 | disposition home or self-care (01) ==
LOC: HO.HMGC 11:14
PROVIDERS: PCP Internal Medicine; Visit Provider Internal Medicine
DX: E53.8 Deficiency of other specified B group vitamins (principal)
CPT/HCPCS: 96372; J3420

== ENCOUNTER 2023-11-18 10:29 | Outpatient (AMB) | payer BC, SELFPAY ==
--- NOTE | 2023-11-18 10:35 | MHC.PC.OV ---
Vital Signs 11/18/23 10:36 Height 5 ft 9 in Weight 227 lb BMI 33.5 BP 120/74 Blood Pressure Location Lt brachial Position Sitting Pulse 62 Pulse Source Pulse Oximeter Pulse Oximetry (%) 96 Oxygen Delivery Method Room Air Intake Visit Reasons: Annual PE Intake Note: Pt is here today for PE. Pt states that he would like to have xray done for his back and his L hip. Allergies THEODORE Inhibitors Adverse Reaction (Intermediate, Verified 11/18/23 10:38) cough losartan Adverse Reaction (Intermediate, Verified 11/18/23 10:38) Cough Tobacco use date assessed: 11/18/23 Dental Screening Dental Screen Date: 11/18/23 Did you have a dental visit in the last 12 months?: Yes Did you have a dental problem in the last 6 months where you did not have access to dental care?: No Was dental information given to patient?: Patient has dentist HPI Annual PE HPI Details Pt presents for PE. Pt c/o L groin pain worse when walking for 3 months. Pt c/o chronic neck and upper back pain for 2 months worse when bending forward at work. [facility] Medical History Annual physical exam Cough Vitamin B 12 deficiency HTN (hypertension) CAD (coronary artery disease) Hyperlipidemia Surgical History S/P CABG x 3 Social History Housing: [place] Patient Tobacco Use Status: Former Tobacco user Years Smoked: 40 years e-Cigarette/Vaping Use: Never Used Current occupational status: employed Current occupation: [employer] Cognitive needs: No Hearing needs: No Vision needs: No Questionnaire PHQ-9 Over the last 2 weeks, how often have you been bothered by any of the following problems? 1. Little interest or pleasure in doing things: not at all 2. Feeling down, depressed, or hopeless: not at all 3. Trouble falling or staying asleep, or sleeping too much: not at all 4. Feeling tired or having little energy: not at all 5. Poor appetite or overeating: not at all 6. Feeling bad about yourself - or that you are a failure or have let yourself or your family down: not at all 7. Trouble concentrating on things, such as reading the newspaper or watching television: not at all 8. Moving or speaking so slowly that other people could have noticed. Or the opposite - being so fidgety or restless that you have been moving around a lot more than usual: not at all 9. Thoughts that you would be better off or of hurting yourself in some way: not at all Total score: 0 Depression Screening Interpretation: Negative Depression Screening Done: Yes Source: Developed by Drs. Ciro Leiva, Julissa Rey, Manpreet Sherman and colleagues, with an educational alice from [employer]. Thrive Questionnaire Date Thrive assessed: 11/18/23 I am a: Patient What is your living situation today?: I have a steady place to live Within the past 12 months, did the food you bought not last and you didn't have the money to get more?: Never true Within the past 12 months, did you worry whether your food would run out before you got money to buy more?: Never true Do you have trouble paying for medicines?: No Do you have trouble getting transportation to medical appointments?: No Do you have trouble paying your heating and electricity bill?: No Do you have trouble taking care of your child, family member or friend?: No Do you have trouble with day-to-day activities such as bathing, preparing meals, shopping, managing finances, etc.?: No Are you currently unemployed and looking for a job?: No Are you interested in more education?: No Please select the resources that you would like help with: None Currently or been in a relationship where the following occur: no concerns reported THRIVE Score: 0 AUDIT C Alcohol Use Questionnaire (AUDIT-C) 1. How often do you have a drink containing alcohol?: Never 3. How often do you have six or more drinks on one occasion?: Never Total Score: 0 SOTO-7 AMB Questionnaire SOTO-7 Date SOTO - 7 assessed: 11/18/23 Feeling nervous, anxious, or on edge: 0 = Not at all Not being able to stop or control worryin = Not at all Worrying too much about different things: 0 = Not at all Trouble relaxin = Not at all Being so restless that it is hard to sit still: 0 = Not at all Becoming easily annoyed or irritable: 0 = Not at all Feeling afraid as if something awful might happen: 0 = Not at all Total SOTO-7 score (0-4 normal; 5-9 mild; 10-14 moderate; 15-21 severe): 0 Source: Developed by Drs. Ciro Leiva, Julissa Rey, Manpreet Sherman and colleagues, with an educational alice from [employer]. Review of Systems Const All systems reviewed & are unremarkable except as noted in HPI and below Reports no additional complaints Eyes Reports no additional complaints ENT Reports no additional complaints Card Reports no additional complaints Resp Reports no additional complaints GI Reports no additional complaints Reports no additional complaints Physical exam (Primary Care) Vital Signs: Last Vital Signs Pulse 62 11/18/23 10:36 BP 120/74 11/18/23 10:36 Pulse Ox 96 11/18/23 10:36 Oxygen Delivery Method Room Air 11/18/23 10:36 BMI result Body Mass Index 33.5 Tobacco/Smoking Status: Tobacco use Status Tobacco use date assessed 11/18/23 11/18/23 10:41 Patient Tobacco Use Status Former Tobacco user 11/18/23 10:41 e-Cigarette/Vaping Use Never Used 11/18/23 10:41 PHQ-9: PHQ-9 Score PHQ-9: Total score 0 11/18/23 10:41 Depression Screening Interpretation: Negative Thrive Assessment: Date of Thrive Assessment Date Thrive assessed 11/18/23 11/18/23 10:41 Currently or been in a relationship where the following occur: no concerns reported Const General: no acute distress HENMT Head: Yes normal to inspection Ears: hearing grossly normal bilaterally Mouth: Normal oral and palatal mucosa present Eyes General: appearance normal, both eyes and all related structures Neck Neck: Yes no lymphadenopathy and Yes supple Resp Effort & Inspection: normal respiratory effort Auscultation: clear to auscultation bilaterally Cardio Rhythm: regular rhythm Heart sounds: S1 normal heart sound present and S2 normal heart sound present GI Inspection: Yes normal to inspection Palpation (GI): Soft to palpation Percussion: Yes normal to percussion Auscultation: normal bowel sounds Back/Spine/Pelvis Other: paraspinal tenderness and muscle spasm in lower cervical and upper thoracic region. There is decreased range of motion of left hip Assessment and Plan Assessment & Plan (1) Hip pain, left: Code(s): M25.552 - Pain in left hip Plan: Check x-rays of left hip, patient was advised to start exercising on stationary bike and if the symptoms persist he will be referred to orthopedic surgeon (2) Neck pain: Code(s): M54.2 - Cervicalgia Plan: Check x-rays of cervical and thoracic spine refer for physical therapy, ergonomic work arrangement to avoid neck strain discussed with the patient (3) Hyperglycemia: Code(s): R73.9 - Hyperglycemia, unspecified Plan: Continue ADA diet regular exercise monitor A1c (4) Vitamin B 12 deficiency: Code(s): E53.8 - Deficiency of other specified B group vitamins Plan: Continue B12 injections check the level (5) HTN (hypertension): Comment: Intolerant to THEODORE inhibitors and ARBs Code(s): I10 - Essential (primary) hypertension Plan: Continue current medications (6) Hyperlipidemia: Code(s): E78.5 - Hyperlipidemia, unspecified Plan: Continue statin return in 6 months Orders: Orders XR thoracic spine 2V Today M25.552 - Pain in left hip, M54.2 - Cervicalgia PT Evaluation and Treatment Today M54.2 - Cervicalgia Comprehensive [employer]. Panel Fast 6 Months E53.8 - Deficiency of other specified B group vitamins, E78.5 - Hyperlipidemia, unspecified, I10 - Essential (primary) hypertension, R73.9 - Hyperglycemia, unspecified Lipid Panel 6 Months E53.8 - Deficiency of other specified B group vitamins, E78.5 - Hyperlipidemia, unspecified, I10 - Essential (primary) hypertension, R73.9 - Hyperglycemia, unspecified Complete Blood Count Auto Diff 6 Months E53.8 - Deficiency of other specified B group vitamins, E78.5 - Hyperlipidemia, unspecified, I10 - Essential (primary) hypertension, R73.9 - Hyperglycemia, unspecified Hemoglobin A1c 6 Months E53.8 - Deficiency of other specified B group vitamins, E78.5 - Hyperlipidemia, unspecified, I10 - Essential (primary) hypertension, R73.9 - Hyperglycemia, unspecified XR hip LT min 2V Today M25.552 - Pain in left hip, M54.2 - Cervicalgia XR cervical spine 3V Today M25.552 - Pain in left hip, M54.2 - Cervicalgia Vitamin B12 and Folate 6 Months E53.8 - Deficiency of other specified B group vitamins, E78.5 - Hyperlipidemia, unspecified, I10 - Essential (primary) hypertension, R73.9 - Hyperglycemia, unspecified Medications: New naproxen 500 mg PO BID 60 tabs 0RF Coding Level of Care Code Est Pt Prev Care 40-64y(87620) Diagnoses Hip pain, left M25.552 Neck pain M54.2 Hyperglycemia R73.9 Vitamin B 12 deficiency E53.8 HTN (hypertension) I10 Hyperlipidemia E78.5
[2023-11-18 10:36] VITALS: BP 120/74; PULSE 62; O2SAT 96; BMI 33.5
== END 2023-11-18 11:25 | disposition home or self-care (01) ==
PROVIDERS: PCP Internal Medicine; Visit Provider Internal Medicine
DX: Z00.00 Encounter for general adult medical examination without abnormal findings (principal); E53.8 Deficiency of other specified B group vitamins; M54.2 Cervicalgia; M25.552 Pain in left hip; R73.9 Hyperglycemia, unspecified; I10 Essential (primary) hypertension; E78.5 Hyperlipidemia, unspecified
CPT/HCPCS: 99396

== ENCOUNTER 2023-11-18 11:21 | Outpatient (REF) | payer BC, SELFPAY ==
--- NOTE | ~2023-11-18 | XR_ITS ---
EXAMINATION: XR HIP, LEFT CLINICAL INFORMATION: Left hip pain. COMPARISON: None available. TECHNIQUE: Two views of the left hip. FINDINGS: No acute fracture or dislocation. Mild joint space narrowing with lateral acetabular marginal osteophytes. Unfused osteophyte versus accessory ossicle adjacent to the acetabulum measuring up to 0.9 cm. No concerning lytic or blastic osseous lesion. No evidence of avascular necrosis. XR/XR hip LT min 2V IMPRESSION: Mild left hip osteoarthritis.
--- NOTE | ~2023-11-18 | XR_ITS ---
EXAMINATION: XR CERVICAL SPINE CLINICAL INFORMATION: Neck pain. COMPARISON: None available. TECHNIQUE: AP, lateral, open-mouth, and swimmer's views of the cervical spine. FINDINGS: Normal vertebral body alignment. The cervical lordosis is maintained. No acute fracture or subluxation. No loss of vertebral body height. Normal atlantoaxial alignment. No significant loss of intervertebral disc height. Tiny anterior endplate osteophytes at C5-C7. Unremarkable facets. No concerning lytic or blastic osseous lesion. Unremarkable prevertebral soft tissues. Partially visualized sternal wires. XR/XR cervical spine 3V IMPRESSION: Minimal degenerative disc disease at C5-C7.
--- NOTE | ~2023-11-18 | XR_ITS ---
EXAMINATION: XR THORACOLUMBAR SPINE CLINICAL INFORMATION: Pain in left hip and neck area. COMPARISON: Chest radiographs of 05/24/2021. TECHNIQUE: AP and lateral views of the thoracic spine. FINDINGS: Redemonstration of postsurgical changes with median sternotomy wires and clips status post CABG. Dextroscoliosis of the thoracolumbar spine. Advanced multilevel degenerative changes in the thoracic spine with multilevel hypertrophic change most notable in the [id number] lumbar spine, progressed since 2020 exam. Visualization of the most superior and inferior vertebral bodies is limited due to overlying bony and soft tissue structures. XR/XR thoracic spine 2V IMPRESSION: Advanced multilevel degenerative changes in the thoracic spine with multilevel hypertrophic change most notable in the mid to lower lumbar spine, progressed since 2020 exam. This study was presented November 18, 2023 at 12:45 PM for interpretation. Stat results provided at this time as requested by referring provider.
== END 2023-11-18 11:22 | disposition home or self-care (01) ==
LOC: HO.HMGCX 11:21
PROVIDERS: PCP Internal Medicine; Visit Provider Internal Medicine
DX: M25.552 Pain in left hip (principal); M54.2 Cervicalgia; M54.6 Pain in thoracic spine
CPT/HCPCS: 72040; 72070; 73502

== ENCOUNTER 2023-12-14 09:21 | Outpatient (AMB) | payer BC, SELFPAY ==
--- NOTE | 2023-12-14 09:29 | AM.OFFVISNUR ---
Intake Intake Visit Reasons: B-12 Intake Note: Pt arrived for monthly B-12 injection Drapery Counselor Required: No Allergies THEODORE Inhibitors Adverse Reaction (Intermediate, Verified 12/14/23 09:30) cough losartan Adverse Reaction (Intermediate, Verified 12/14/23 09:30) Cough Medication List - Last Reconciled 12/14/23 by Lisa Graham RN albuterol sulfate 90 mcg/actuation 2 puffs inhalation Q6H PRN amlodipine 5 mg PO DAILY ascorbic acid (vitamin C) 500 mg PO DAILY aspirin 81 mg PO DAILY atorvastatin 80 mg PO DAILY bisacodyl (Dulcolax (bisacodyl)) 10 mg (2 x 5 mg) PO ONCE 1 day cyanocobalamin (vitamin B-12) 1,000 mcg subcut Q4W hydralazine 100 mg PO BID metoprolol tartrate 50 mg PO BID naproxen 500 mg PO BID polyethylene glycol 3350 (Miralax) 238 grams PO ONCE sumatriptan succinate 1 tabl at onset of headache, repeat in 2 hrs as needed orally every 2 hours PRN; do not exceed 2 doses per 24 hrs Do you need a note to return to daycare/school/sports/work: No Office Meds cyanocobalamin (vitamin B-12) 1,000 mcg/mL injection solution Performing Provider: Yanely Mcgraw MD Performing Location: [facility] Administered by: Lisa Graham RN on 12/14/23 09:30 Dose Route Admin Location Dispensed Lot Number Expiration Date ND Clinical Laboratory Science Professor 1,000 mcg IM Left deltoid 1 mL [id number] 08/19/24 5146-6384-80 [facility] Comments: Pt supplied Coding Assessment & Plan Assessment & Plan Orders: Orders AMB Vitamin B12 Injection Patient Supplied Today E53.8 - Deficiency of other specified B group vitamins
== END 2023-12-14 09:30 | disposition home or self-care (01) ==
LOC: HO.HMGC 09:22
PROVIDERS: PCP Internal Medicine; Visit Provider Internal Medicine
DX: E53.8 Deficiency of other specified B group vitamins (principal)
CPT/HCPCS: 96372; J3420

== ENCOUNTER 2024-01-11 09:00 | Outpatient (AMB) | payer BC, SELFPAY ==
--- NOTE | 2024-01-11 09:07 | AM.OFFVISNUR ---
Intake Intake Visit Reasons: B-12 Intake Note: Pt arrived for monthly B-12 injection Allergies THEODORE Inhibitors Adverse Reaction (Intermediate, Verified 12/14/23 09:30) cough losartan Adverse Reaction (Intermediate, Verified 12/14/23 09:30) Cough Office Meds cyanocobalamin (vitamin B-12) 1,000 mcg/mL injection solution Performing Provider: Yanely Mcgraw MD Performing Location: [facility] Administered by: Lisa Graham RN on 01/11/24 09:08 Dose Route Admin Location Dispensed Lot Number Expiration Date ND Hardwood Floor Refinisher 1,000 mcg IM right deltoid 1 mL [id number] 08/19/24 4682-5464-63 [facility] Comments: Pt supplied Coding Assessment & Plan Assessment & Plan Orders: Orders AMB Vitamin B12 Injection Patient Supplied Today E53.8 - Deficiency of other specified B group vitamins
== END 2024-01-11 10:08 | disposition home or self-care (01) ==
PROVIDERS: PCP Internal Medicine; Visit Provider Internal Medicine
DX: E53.8 Deficiency of other specified B group vitamins (principal)
CPT/HCPCS: 96372; J3420

== ENCOUNTER 2024-02-08 08:51 | Outpatient (AMB) | payer BC, SELFPAY ==
--- NOTE | 2024-02-08 09:01 | AM.OFFVISNUR ---
Intake Intake Visit Reasons: B-12 Intake Note: Pt arrived for monthly B-12 injection Allergies THEODORE Inhibitors Adverse Reaction (Intermediate, Verified 12/14/23 09:30) cough losartan Adverse Reaction (Intermediate, Verified 12/14/23 09:30) Cough Office Meds cyanocobalamin (vitamin B-12) 1,000 mcg/mL injection solution Performing Provider: Yanely Mcgraw MD Performing Location: [facility] Administered by: Lisa Graham RN on 02/08/24 09:01 Dose Route Admin Location Dispensed Lot Number Expiration Date NDC Booth Usher 1,000 mcg IM Right deltoid 1 mL [id number] 07/19/25 9377-9668-61 [facility] Comments: Pt supplied Coding Assessment & Plan Assessment & Plan Orders: Orders AMB Vitamin B12 Injection Patient Supplied Today E53.8 - Deficiency of other specified B group vitamins Medications: New cyanocobalamin (vitamin B-12) 1,000 mcg IM ONCE 1 mL 0RF E53.8 - Deficiency of other specified B group vitamins
== END 2024-02-08 09:12 | disposition home or self-care (01) ==
PROVIDERS: PCP Internal Medicine; Visit Provider Internal Medicine
DX: E53.8 Deficiency of other specified B group vitamins (principal)
CPT/HCPCS: 96372; J3420

== ENCOUNTER 2024-03-03 09:00 | Outpatient (AMB) | payer BC, SELFPAY ==
--- NOTE | 2024-03-03 09:06 | AM.OFFVISNUR ---
Intake Intake Visit Reasons: B12 Intake Note: Pt arrived for monthly B-12 injection Allergies THEODORE Inhibitors Adverse Reaction (Intermediate, Verified 12/14/23 09:30) cough losartan Adverse Reaction (Intermediate, Verified 12/14/23 09:30) Cough Office Meds cyanocobalamin (vitamin B-12) 1,000 mcg/mL injection solution Performing Provider: Yanely Mcgraw MD Performing Location: [facility] Administered by: Lisa Graham RN on 03/03/24 09:06 Dose Route Admin Location Dispensed Lot Number Expiration Date ND Animal Shelter Supervisor 1,000 mcg IM Right deltoid 1 mL [id number] 07/19/25 4193-2049-59 [facility] Comments: Pt supplied Coding Assessment & Plan Assessment & Plan Orders: Orders AMB Vitamin B12 Injection Patient Supplied Today E53.8 - Deficiency of other specified B group vitamins Medications: New cyanocobalamin (vitamin B-12) 1,000 mcg IM ONCE 1 mL 0RF E53.8 - Deficiency of other specified B group vitamins
== END 2024-03-03 09:11 | disposition home or self-care (01) ==
LOC: HO.HMGC 09:00
PROVIDERS: PCP Internal Medicine; Visit Provider Internal Medicine
DX: E53.8 Deficiency of other specified B group vitamins (principal)
CPT/HCPCS: 96372; J3420

== ENCOUNTER 2024-03-28 08:56 | Outpatient (AMB) | payer BC, SELFPAY ==
--- NOTE | 2024-03-28 09:40 | AM.OFFVISNUR ---
Intake Intake Visit Reasons: B12 Intake Note: Pt arrived for monthly B-12 Allergies THEODORE Inhibitors Adverse Reaction (Intermediate, Verified 12/14/23 09:30) cough losartan Adverse Reaction (Intermediate, Verified 12/14/23 09:30) Cough Office Meds cyanocobalamin (vitamin B-12) 1,000 mcg/mL injection solution Performing Provider: Yanely Mcgraw MD Performing Location: [facility] Administered by: Lisa Graham RN on 03/28/24 09:41 Dose Route Admin Location Dispensed Lot Number Expiration Date ND Conservation Or Heritage Architect 1,000 mcg IM Right deltoid 1 mL [id number] 07/19/25 6439-3096-64 [facility] Comments: Pt supplied Coding Assessment & Plan Assessment & Plan Orders: Orders AMB Vitamin B12 Injection Patient Supplied Today E53.8 - Deficiency of other specified B group vitamins Medications: New cyanocobalamin (vitamin B-12) 1,000 mcg IM ONCE 1 mL 0RF E53.8 - Deficiency of other specified B group vitamins
== END 2024-03-28 10:56 | disposition home or self-care (01) ==
PROVIDERS: PCP Internal Medicine; Visit Provider Internal Medicine
DX: E53.8 Deficiency of other specified B group vitamins (principal)
CPT/HCPCS: 96372; J3420

== ENCOUNTER 2024-04-25 08:46 | Outpatient (AMB) | payer BC, SELFPAY ==
--- NOTE | 2024-04-25 09:09 | AM.OFFVISNUR ---
Intake Visit Reasons: B12 Intake Note: Pt arrived for monthly B-12 injection Allergies THEODORE Inhibitors Adverse Reaction (Intermediate, Verified 12/14/23 09:30) cough losartan Adverse Reaction (Intermediate, Verified 12/14/23 09:30) Cough Office Meds cyanocobalamin (vitamin B-12) 1,000 mcg/mL injection solution Performing Provider: Yanely Mcgraw MD Performing Location: [facility] Administered by: Lisa Graham RN on 04/25/24 09:10 Dose Route Admin Location Dispensed Lot Number Expiration Date ND Airplane Designer 1,000 mcg IM left deltoid 1 mL [id number] 08/19/25 0264-5482-22 [facility] Comments: Pt supplied Assessment & Plan Assessment & Plan Orders: Orders AMB Vitamin B12 Injection Patient Supplied Today E53.8 - Deficiency of other specified B group vitamins Medications: New cyanocobalamin (vitamin B-12) 1,000 mcg IM ONCE 1 mL 0RF E53.8 - Deficiency of other specified B group vitamins
== END 2024-04-25 09:08 | disposition home or self-care (01) ==
PROVIDERS: PCP Internal Medicine; Visit Provider Internal Medicine
DX: E53.8 Deficiency of other specified B group vitamins (principal)
CPT/HCPCS: 96372; J3420

== ENCOUNTER 2024-05-16 09:13 | Outpatient (AMB) | payer BC, SELFPAY ==
[2024-05-16 09:20] VITALS: BP 94/60; PULSE 70; O2SAT 96; BMI 34.0
--- NOTE | 2024-05-16 09:20 | MHC.PC.OV ---
Vital Signs 05/16/24 09:20 Height 5 ft 9 in Weight 230 lb BMI 34.0 BP 94/60 Blood Pressure Location Rt brachial Position Sitting Pulse 70 Pulse Source Pulse Oximeter Pulse Oximetry (%) 96 Oxygen Delivery Method Room Air Intake Visit Reasons: Follow up visit Intake Note: Pt is here today for a follow up visit. Pt is fasting and would like to have blood work done and urine test. Allergies THEODORE Inhibitors Adverse Reaction (Intermediate, Verified 05/16/24 09:41) cough losartan Adverse Reaction (Intermediate, Verified 05/16/24 09:41) Cough Medication List - Last Reconciled 05/16/24 by Yanely Mcgraw MD albuterol sulfate 90 mcg/actuation 2 puffs inhalation Q6H PRN amlodipine 5 mg PO DAILY ascorbic acid (vitamin C) 500 mg PO DAILY aspirin 81 mg PO DAILY atorvastatin 80 mg PO DAILY bisacodyl (Dulcolax (bisacodyl)) 10 mg (2 x 5 mg) PO ONCE 1 day cyanocobalamin (vitamin B-12) 1,000 mcg subcut Q4W hydralazine 100 mg PO BID metoprolol tartrate 50 mg PO BID naproxen 500 mg PO BID polyethylene glycol 3350 (Miralax) 238 grams PO ONCE sumatriptan succinate 1 tabl at onset of headache, repeat in 2 hrs as needed orally every 2 hours PRN; do not exceed 2 doses per 24 hrs Tobacco use date assessed: 05/16/24 Fall risk assessment: No Falls in past year Last assessed Fall Risk: 05/16/24 Dental Screening Dental Screen Date: 05/16/24 Did you have a dental visit in the last 12 months?: Yes Did you have a dental problem in the last 6 months where you did not have access to dental care?: No Was dental information given to patient?: Patient has dentist HPI Follow up visit HPI Details Pt presents for f/u HTN, hyperlipid,stable on meds. Pt reports increased urinary frequency at night. [facility] Medical History Annual physical exam Cough Vitamin B 12 deficiency HTN (hypertension) CAD (coronary artery disease) Hyperlipidemia Surgical History S/P CABG x 3 Social History Housing: House Patient Tobacco Use Status: Former Tobacco user Years Smoked: 40 years e-Cigarette/Vaping Use: Never Used service: No Current occupational status: employed Current occupation: [employer] Cognitive needs: No Hearing needs: No Vision needs: No Questionnaire Thrive Questionnaire Date Thrive assessed: 11/18/23 AUDIT C Alcohol Use Questionnaire (AUDIT-C) 1. How often do you have a drink containing alcohol?: Never 3. How often do you have six or more drinks on one occasion?: Never Total Score: 0 SOTO-7 AMB Questionnaire SOTO-7 Date SOTO - 7 assessed: 11/18/23 Source: Developed by Drs. Ciro Leiva, Julissa Rey, Manpreet Sherman and colleagues, with an educational alice from [email or web address]. Review of Systems Const All systems reviewed & are unremarkable except as noted in HPI and below ENT Reports no additional complaints Card Reports no additional complaints Resp Reports no additional complaints GI Reports no additional complaints Physical exam (Primary Care) Vital Signs: Last Vital Signs Pulse 70 05/16/24 09:20 BP 94/60 05/16/24 09:20 Pulse Ox 96 05/16/24 09:20 Oxygen Delivery Method Room Air 05/16/24 09:20 BMI result Body Mass Index 34.0 Tobacco/Smoking Status: Tobacco use Status Tobacco use date assessed 05/16/24 05/16/24 09:43 Patient Tobacco Use Status Former Tobacco user 05/16/24 09:20 e-Cigarette/Vaping Use Never Used 05/16/24 09:20 Thrive Assessment: Date of Thrive Assessment Date Thrive assessed 11/18/23 05/16/24 09:20 Const General: no acute distress HENMT Mouth: Normal oral and palatal mucosa present Resp Effort & Inspection: normal respiratory effort Auscultation: clear to auscultation bilaterally Cardio Rhythm: regular rhythm Heart sounds: S1 normal heart sound present and S2 normal heart sound present GI Inspection: Yes normal to inspection Palpation (GI): Soft to palpation Percussion: Yes normal to percussion Assessment and Plan Assessment & Plan (1) HTN (hypertension): Comment: Intolerant to THEODORE inhibitors and ARBs Code(s): I10 - Essential (primary) hypertension Plan: BLOOD PRESSURE IS LOW AND PATIENT WILL DECREASE AMLODIPINE TO HALF A TABLET AND CONTINUE HYDRALAZINE (2) CAD (coronary artery disease): Comment: CABG 3 vessels 10/2020, f/u PVC Dr. Ozuna Code(s): I25.10 - Atherosclerotic heart disease of [place] coronary artery without angina pectoris Plan: Continue current medications follow-up with Cardiology (3) BPH (benign prostatic hyperplasia): Code(s): N40.0 - Benign prostatic hyperplasia without lower urinary tract symptoms Plan: Start tamsulosin follow-up in 2 months Medications: New tamsulosin (Flomax) 0.4 mg PO BEDTIME 90 caps 0RF Coding Level of Care Code Est Pt Level 4 (19671) Diagnoses HTN (hypertension) I10 CAD (coronary artery disease) I25.10 BPH (benign prostatic hyperplasia) N40.0
== END 2024-05-16 11:11 | disposition home or self-care (01) ==
PROVIDERS: PCP Internal Medicine; Visit Provider Internal Medicine
DX: I10 Essential (primary) hypertension (principal); I25.10 Atherosclerotic heart disease of native coronary artery without angina pectoris; N40.0 Benign prostatic hyperplasia without lower urinary tract symptoms
CPT/HCPCS: 99214

== ENCOUNTER 2024-05-16 10:15 | Outpatient (REF) | payer BC, SELFPAY ==
[2024-05-16 13:27] LABS: MANUAL DIFF FLAG NO
[2024-05-16 13:51] LABS: Basophils Percent Auto 0.1 % (0-2); Eosinophils Absolute Auto 0.4 X10*3/uL (0.0-0.4); Hematocrit 46.4 % (42.0-52.0); Hemoglobin 15.6 g/dl (14.0-18.0); Imm Gran Abs Auto 0.03 X10*3/uL (0.00-0.03); Imm Gran Pct Auto 0.3 % (0.0-0.4); Lymphocytes Absolute Auto 2.2 X10*3/uL (1.2-4.9); Lymphocytes Percent Auto 21.5 % (20-40); Mean Corpuscular HGB Conc 33.6 g/dl (31.0-36.0); Mean Corpuscular Hemoglobin 29.3 pg (27.0-33.0); Mean Corpuscular Volume 87.1 fL (80.0-98.0); Mean Platelet Volume 9.7 fL (9.4-12.4); Monocytes Absolute Auto 0.8 X10*3/uL (0.1-1.2); Monocytes Percent Auto 8.1 % (2-11); Neutrophils Absolute Auto 6.8 x10*3/uL (2.0-8.3); Platelet Count 206 X10*3/uL (160-400); Red Blood Count 5.33 X10*6/uL (4.60-5.80); White Blood Count 10.3 X10*3/uL (4.8-10.8)
[2024-05-16 14:21] LABS: Alanine Aminotransferase 38 U/L (0-40); Albumin Level 4.1 g/dL (3.5-5.0); Alkaline Phosphatase 74 U/L (39-117); Anion Gap 11 (12-20); Aspartate Amino Transferase 26 U/L (5-37); Bilirubin Total 1.2 mg/dL (0.0-1.0); Blood Urea Nitrogen 20 mg/dL (9-16); Calcium 9.5 mg/dL (8.4-10.2); Carbon Dioxide 27 mmol/L (22-29); Chloride 106 mmol/L (96-108); Cholesterol 122 mg/dL (<200); Estimated Glomerular Filt Rate > 60; Glucose Fasting 107 mg/dL (60-99); HDL Cholesterol 37 mg/dL (>40); LDL Cholesterol Calculated 62 mg/dL (<100); Sodium 140 mmol/L (135-145); Total Protein 7.2 g/dL (6.5-8.0); Triglycerides 117 mg/dL (<150)
[2024-05-16 14:33] LABS: Vitamin B12 334 pg/mL (200-900)
[2024-05-16 14:38] LABS: Estimated Average Glucose 114 mg/dL; Hemoglobin A1c % 5.6 % (<6.0)
== END 2024-05-16 10:16 | disposition home or self-care (01) ==
LOC: HO.HMGCLDS 10:15
PROVIDERS: PCP Internal Medicine; Visit Provider Internal Medicine
DX: R73.9 Hyperglycemia, unspecified (principal); E53.8 Deficiency of other specified B group vitamins; I10 Essential (primary) hypertension; E78.5 Hyperlipidemia, unspecified
CPT/HCPCS: 36415; 80053; 80061; 82607; 82746; 83036; 85025

== ENCOUNTER 2024-05-30 08:57 | Outpatient (AMB) | payer BC, SELFPAY ==
--- NOTE | 2024-05-30 09:05 | AM.OFFVISNUR ---
Intake Visit Reasons: B12 Intake Note: Pt arrived for monthly B-12 injection Allergies THEODORE Inhibitors Adverse Reaction (Intermediate, Verified 05/16/24 09:41) cough losartan Adverse Reaction (Intermediate, Verified 05/16/24 09:41) Cough Office Meds cyanocobalamin (vitamin B-12) 1,000 mcg/mL injection solution Performing Provider: Yanely Mcgraw MD Performing Location: [facility] Administered by: Lisa Graham RN on 05/30/24 09:06 Dose Route Admin Location Dispensed Lot Number Expiration Date ND Machine Lead Burner 1,000 mcg IM left deltoid 1 mL [id number] 08/19/25 5128-7828-31 [facility] Comments: Pt supplied Assessment & Plan Assessment & Plan Orders: Orders AMB Vitamin B12 Injection Patient Supplied Today E53.8 - Deficiency of other specified B group vitamins Medications: New cyanocobalamin (vitamin B-12) 1,000 mcg IM ONCE 1 mL 0RF E53.8 - Deficiency of other specified B group vitamins
== END 2024-05-30 09:13 | disposition home or self-care (01) ==
PROVIDERS: PCP Internal Medicine; Visit Provider Internal Medicine
DX: E53.8 Deficiency of other specified B group vitamins (principal)
CPT/HCPCS: 96372; J3420

== ENCOUNTER 2024-06-13 09:22 | Outpatient (AMB) | payer BC, SELFPAY ==
--- NOTE | 2024-06-13 09:22 | A.OFFPC_ITS ---
Vital Signs 06/13/24 09:23 Height 5 ft 9 in Weight 235 lb BMI 34.7 BP 120/72 Blood Pressure Location Lt brachial Position Sitting Pulse 68 Pulse Source Pulse Oximeter Pulse Oximetry (%) 95 Oxygen Delivery Method Room Air Intake Visit Reasons: 1 month follow up visit Allergies THEODORE Inhibitors Adverse Reaction (Intermediate, Verified 06/13/24 09:25) cough losartan Adverse Reaction (Intermediate, Verified 06/13/24 09:25) Cough Medication List - Last Reconciled 06/13/24 by Yanely Mcgraw MD albuterol sulfate 90 mcg/actuation 2 puffs inhalation Q6H PRN amlodipine 5 mg PO DAILY ascorbic acid (vitamin C) 500 mg PO DAILY aspirin 81 mg PO DAILY atorvastatin 80 mg PO DAILY bisacodyl (Dulcolax (bisacodyl)) 10 mg (2 x 5 mg) PO ONCE 1 day cyanocobalamin (vitamin B-12) 1,000 mcg subcut Q4W hydralazine 100 mg PO BID metoprolol tartrate 50 mg PO BID naproxen 500 mg PO BID polyethylene glycol 3350 (Miralax) 238 grams PO ONCE sumatriptan succinate 1 tabl at onset of headache, repeat in 2 hrs as needed orally every 2 hours PRN; do not exceed 2 doses per 24 hrs tamsulosin (Flomax) 0.4 mg PO BEDTIME Tobacco use date assessed: 06/13/24 Dental Screening Dental Screen Date: 05/16/24 HPI 1 month follow up visit HPI Details Patient presents for the follow-up on hypertension hyperlipidemia BPH symptomatically improved on Flomax. [facility] Medical History Annual physical exam Cough Vitamin B 12 deficiency HTN (hypertension) CAD (coronary artery disease) Hyperlipidemia Surgical History S/P CABG x 3 Social History Housing: House Patient Tobacco Use Status: Former Tobacco user Years Smoked: 40 years e-Cigarette/Vaping Use: Never Used service: No Current occupational status: employed Current occupation: [employer] Cognitive needs: No Hearing needs: No Vision needs: No Questionnaire Thrive Questionnaire Date Thrive assessed: 11/18/23 SOTO-7 AMB Questionnaire SOTO-7 Date SOTO - 7 assessed: 11/18/23 Source: Developed by Drs. Ciro Leiva, Julissa Rey, Manpreet Sherman and colleagues, with an educational alice from [employer]. Review of Systems Const All systems reviewed & are unremarkable except as noted in HPI and below Reports no additional complaints Eyes Reports no additional complaints ENT Reports no additional complaints Card Reports no additional complaints Resp Reports no additional complaints GI Reports no additional complaints Reports no additional complaints Physical exam (Primary Care) Vital Signs: Last Vital Signs Pulse 68 06/13/24 09:23 BP 120/72 06/13/24 09:23 Pulse Ox 95 06/13/24 09:23 Oxygen Delivery Method Room Air 06/13/24 09:23 BMI result Body Mass Index 34.7 Tobacco/Smoking Status: Tobacco use Status Tobacco use date assessed 06/13/24 06/13/24 09:25 Patient Tobacco Use Status Former Tobacco user 06/13/24 09:25 e-Cigarette/Vaping Use Never Used 06/13/24 09:25 Thrive Assessment: Date of Thrive Assessment Date Thrive assessed 11/18/23 06/13/24 09:25 Const General: no acute distress HENMT Head: Yes normal to inspection Ears: hearing grossly normal bilaterally Face and sinus: Yes normal facial exam Mouth: Normal oral and palatal mucosa present Throat: Yes posterior oropharynx normal Eyes General: appearance normal, both eyes and all related structures Neck Neck: Yes supple Resp Effort & Inspection: normal respiratory effort Auscultation: clear to auscultation bilaterally Cardio Rhythm: regular rhythm Heart sounds: S1 normal heart sound present and S2 normal heart sound present GI Inspection: Yes normal to inspection Palpation (GI): Soft to palpation Percussion: Yes normal to percussion Auscultation: normal bowel sounds Assessment and Plan Assessment & Plan (1) Hyperlipidemia: Code(s): E78.5 - Hyperlipidemia, unspecified Plan: cont statin (2) CAD (coronary artery disease): Comment: CABG 3 vessels 10/2020, f/u PVC Dr. Ozuna Code(s): I25.10 - Atherosclerotic heart disease of [place] coronary artery without angina pectoris Plan: cont meds (3) HTN (hypertension): Comment: Intolerant to THEODORE inhibitors and ARBs Code(s): I10 - Essential (primary) hypertension Plan: cont meds Orders: Orders Hemoglobin A1c 6 Months E78.5 - Hyperlipidemia, unspecified, I10 - Essential (primary) hypertension, I25.10 - Atherosclerotic heart disease of [place] coronary artery without angina pectoris Microalbumin, Random (w Creat) 6 Months E78.5 - Hyperlipidemia, unspecified, I10 - Essential (primary) hypertension, I25.10 - Atherosclerotic heart disease of [place] coronary artery without angina pectoris Comprehensive [place]. Panel Fast 6 Months E78.5 - Hyperlipidemia, unspecified, I10 - Essential (primary) hypertension, I25.10 - Atherosclerotic heart disease of [place] coronary artery without angina pectoris Lipid Panel 6 Months E78.5 - Hyperlipidemia, unspecified, I10 - Essential (primary) hypertension, I25.10 - Atherosclerotic heart disease of [place] coronary artery without angina pectoris Coding Level of Care Code Est Pt Level 4 (61480) Diagnoses Hyperlipidemia E78.5 CAD (coronary artery disease) I25.10 HTN (hypertension) I10
[2024-06-13 09:23] VITALS: BP 120/72; PULSE 68; O2SAT 95; BMI 34.7
== END 2024-06-13 11:25 | disposition home or self-care (01) ==
LOC: HO.HMGC 09:22
PROVIDERS: PCP Internal Medicine; Visit Provider Internal Medicine
DX: E78.5 Hyperlipidemia, unspecified (principal); I25.10 Atherosclerotic heart disease of native coronary artery without angina pectoris; I10 Essential (primary) hypertension
CPT/HCPCS: 99214

== ENCOUNTER 2024-07-01 08:54 | Outpatient (AMB) | payer BC, SELFPAY ==
--- NOTE | 2024-07-01 09:05 | AM.OFFVISNUR ---
Intake Visit Reasons: B12 Intake Note: Pt arrived for monthly B-12 injection Allergies THEODORE Inhibitors Adverse Reaction (Intermediate, Verified 06/13/24 09:25) cough losartan Adverse Reaction (Intermediate, Verified 06/13/24 09:25) Cough Office Meds cyanocobalamin (vitamin B-12) 1,000 mcg/mL injection solution Performing Provider: Yanely Mcgraw MD Performing Location: [facility] Administered by: Lisa Graham RN on 07/01/24 09:07 Dose Route Admin Location Dispensed Lot Number Expiration Date [place] [employer] Specialist 1,000 mcg IM left deltoid 1 mL [id number] 08/19/25 2207-9202-27 [facility] Comments: Pt supplied Assessment & Plan Assessment & Plan Orders: Orders AMB Vitamin B12 Injection Patient Supplied Today E53.8 - Deficiency of other specified B group vitamins Medications: New cyanocobalamin (vitamin B-12) 1,000 mcg IM ONCE 1 mL 0RF E53.8 - Deficiency of other specified B group vitamins
== END 2024-07-01 09:19 | disposition home or self-care (01) ==
PROVIDERS: PCP Internal Medicine; Visit Provider Internal Medicine
DX: E53.8 Deficiency of other specified B group vitamins (principal)
CPT/HCPCS: 96372; J3420

== ENCOUNTER 2024-08-01 09:26 | Outpatient (AMB) | payer BC, SELFPAY ==
--- NOTE | 2024-08-01 09:50 | AM.OFFVISNUR ---
Intake Visit Reasons: b12 Allergies THEODORE Inhibitors Adverse Reaction (Intermediate, Verified 06/13/24 09:25) cough losartan Adverse Reaction (Intermediate, Verified 06/13/24 09:25) Cough Office Meds cyanocobalamin (vitamin B-12) 1,000 mcg/mL injection solution Performing Provider: Yanely Mcgraw MD [place] [facility] [place] Administered by: Mellissa Parker on 08/01/24 09:50 Dose Route Admin Location Dispensed Lot Number Expiration Date [facility] Outsole Rounder 1,000 mcg IM 1 mL 09/07/25 [id number] [facility] 1,000 mcg IM r deltoid 1 mL Assessment & Plan Assessment & Plan Orders: Orders AMB Vitamin B12 Injection Patient Supplied Today E53.8 - Deficiency of other specified B group vitamins Medications: New cyanocobalamin (vitamin B-12) 1,000 mcg IM ONCE 1 mL 0RF E53.8 - Deficiency of other specified B group vitamins
== END 2024-08-01 10:00 | disposition home or self-care (01) ==
PROVIDERS: PCP Internal Medicine; Visit Provider Internal Medicine
DX: E53.8 Deficiency of other specified B group vitamins (principal)
CPT/HCPCS: J3420

== ENCOUNTER → 2024-08-01 09:26 | Outpatient (BNVA) | payer BC, SELFPAY | PROVIDERS: PCP Internal Medicine; Visit Provider Internal Medicine | DX: E53.8 Deficiency of other specified B group vitamins (principal) | CPT/HCPCS: 96372 ==

== ENCOUNTER 2024-09-01 09:27 | Outpatient (AMB) | payer BC, SELFPAY ==
--- NOTE | 2024-09-01 10:03 | AM.OFFVISNUR ---
Intake Visit Reasons: b12 Intake Note: Pt arrived for Monthly B-12 injection Allergies THEODORE Inhibitors Adverse Reaction (Intermediate, Verified 06/13/24 09:25) cough losartan Adverse Reaction (Intermediate, Verified 06/13/24 09:25) Cough Office Meds cyanocobalamin (vitamin B-12) 1,000 mcg/mL injection solution Performing Provider: Yanely Mcgraw MD [place] [facility] [place] Administered by: Lisa Graham RN on 09/01/24 10:03 Dose Route Admin Location Dispensed Lot Number Expiration Date [facility] Transferrer 1,000 mcg IM right deltoid 1 mL [id number] 02/16/26 3038-0310-41 [facility] Comments: Pt supplied Assessment & Plan Assessment & Plan Orders: Orders AMB Vitamin B12 Injection Patient Supplied Today E53.8 - Deficiency of other specified B group vitamins Medications: New cyanocobalamin (vitamin B-12) 1,000 mcg IM ONCE 1 mL 0RF E53.8 - Deficiency of other specified B group vitamins
== END 2024-09-01 10:08 | disposition home or self-care (01) ==
PROVIDERS: PCP Internal Medicine; Visit Provider Internal Medicine
DX: E53.8 Deficiency of other specified B group vitamins (principal)
CPT/HCPCS: J3420

== ENCOUNTER → 2024-09-01 09:27 | Outpatient (BNVA) | payer BC, SELFPAY | PROVIDERS: PCP Internal Medicine; Visit Provider Internal Medicine | DX: E53.8 Deficiency of other specified B group vitamins (principal) | CPT/HCPCS: 96372 ==

== ENCOUNTER 2024-10-04 08:25 | Outpatient (AMB) | payer BC, SELFPAY ==
--- NOTE | 2024-10-04 08:31 | AM.OFFVISNUR ---
Intake Visit Reasons: B12 Allergies THEODORE Inhibitors Adverse Reaction (Intermediate, Verified 06/13/24 09:25) cough losartan Adverse Reaction (Intermediate, Verified 06/13/24 09:25) Cough Nursing Note Pt ambulate (I) gait steady to room 5. Medicated x 1 with Vitamin B12 to right deltoid.
== END 2024-10-04 08:54 | disposition home or self-care (01) ==
PROVIDERS: PCP Internal Medicine; Visit Provider Internal Medicine
DX: E53.8 Deficiency of other specified B group vitamins (principal)

== ENCOUNTER → 2024-10-04 08:25 | Outpatient (BNVA) | payer BC, SELFPAY | PROVIDERS: PCP Internal Medicine; Visit Provider Internal Medicine | DX: E53.8 Deficiency of other specified B group vitamins (principal) | CPT/HCPCS: 96372; J3420 ==

== ENCOUNTER 2024-10-31 08:30 | Outpatient (AMB) | payer BC, SELFPAY ==
--- NOTE | 2024-10-31 08:39 | AM.OFFVISNUR ---
Intake Visit Reasons: B12 Intake Note: Pt arrived for monthly B-12 injection Allergies THEODORE Inhibitors Adverse Reaction (Intermediate, Verified 06/13/24 09:25) cough losartan Adverse Reaction (Intermediate, Verified 06/13/24 09:25) Cough Office Meds cyanocobalamin (vitamin B-12) 1,000 mcg/mL injection solution Performing Provider: Yaenly Mcgraw MD Performing Location: [facility] [place] [facility] Administered by: Lisa Graham RN on 10/31/24 08:39 Dose Route Admin Location Dispensed Lot Number Expiration Date [facility] Director Ship 1,000 mcg IM left deltoid 1 mL [id number] 02/16/26 3921-9441-62 [facility] Comments: Pt supplied Assessment & Plan Assessment & Plan Orders: Orders AMB Vitamin B12 Injection Patient Supplied Today E53.8 - Deficiency of other specified B group vitamins Medications: New cyanocobalamin (vitamin B-12) 1,000 mcg IM ONCE 1 mL 0RF E53.8 - Deficiency of other specified B group vitamins
== END 2024-10-31 08:39 | disposition home or self-care (01) ==
LOC: HO.HMCC 08:30
PROVIDERS: PCP Internal Medicine; Visit Provider Internal Medicine
DX: E53.8 Deficiency of other specified B group vitamins (principal)

== ENCOUNTER → 2024-10-31 08:30 | Outpatient (BNVA) | payer BC, SELFPAY | PROVIDERS: PCP Internal Medicine; Visit Provider Internal Medicine | DX: E53.8 Deficiency of other specified B group vitamins (principal) | CPT/HCPCS: 96372; J3420 ==

== ENCOUNTER 2024-11-28 08:43 | Outpatient (AMB) | payer BC, SELFPAY ==
--- NOTE | 2024-11-28 08:46 | AM.OFFVISNUR ---
Intake Visit Reasons: B12 Intake Note: Pt arrived for monthly B-12 injection Allergies THEODORE Inhibitors Adverse Reaction (Intermediate, Verified 06/13/24 09:25) cough losartan Adverse Reaction (Intermediate, Verified 06/13/24 09:25) Cough Office Meds cyanocobalamin (vitamin B-12) 1,000 mcg/mL injection solution Performing Provider: Yanely Mcgraw MD [place] [facility] [place] Administered by: Lisa Graham RN on 11/28/24 08:54 Dose Route Admin Location Dispensed Lot Number Expiration Date [facility] Ice Cream Chef 1,000 mcg IM right deltoid 1 mL [id number] 02/16/26 5635-0822-72 [facility] Assessment & Plan Assessment & Plan Orders: Orders AMB Vitamin B12 Injection Patient Supplied Today E53.8 - Deficiency of other specified B group vitamins Medications: New cyanocobalamin (vitamin B-12) 1,000 mcg IM ONCE 1 mL 0RF E53.8 - Deficiency of other specified B group vitamins Coding
== END 2024-11-28 08:53 | disposition home or self-care (01) ==
LOC: HO.HMCC 08:43
PROVIDERS: PCP Internal Medicine; Visit Provider Internal Medicine
DX: E53.8 Deficiency of other specified B group vitamins (principal)

== ENCOUNTER → 2024-11-28 08:43 | Outpatient (BNVA) | payer BC, SELFPAY | PROVIDERS: PCP Internal Medicine; Visit Provider Internal Medicine | DX: E53.8 Deficiency of other specified B group vitamins (principal) | CPT/HCPCS: 96372; J3420 ==

== ENCOUNTER 2024-12-01 11:53 | Outpatient (REF) | payer BC, SELFPAY ==
--- OUTSIDE RECORDS SUMMARY | 2024-12-01 12:19 | XMS_ITS | Encounter Summary ---
Author Organization [facility] Address [address] [facility] [address] [place] [address] Phone Care Team Providers Care Bobj Developer Name Role Phone Unavailable Primary Care Provider Unavailabl e Encounter Details Date Type Department Care Team (Late st Contact Info) Description 01/28/2021 Orders Only [facility] [address] [facility] [address] [place] [address] Shabbir Menezes MD [address] [facility] [address] [place] [phone] Primary hypertension Social History Tobacco Use Types Packs/Day Years Used Date Smoking Tobacco: Never Assessed Sex and Gender Information Value Date Recorded Sex Assigned at Not on file Legal Sex Male 12:46 PM EST Gender Identity Not on file Sexual Orientation Not on file COVID-19 Exposure Response Date Recorded In the last month, have you been in contact with someone who was confirmed or suspected to have Coronavirus / COVID-19? No / Unsure 01/11/2021 11:06 AM EDT documented as of this encounter Plan of Treatment Not on file documented as of this encounter Visit Diagnoses Diagnosis Primary hypertension documented in this encounter
--- OUTSIDE RECORDS SUMMARY | 2024-12-01 12:19 | XMS_ITS | Encounter Summary ---
Author Organization [facility] Address [address] [place] [address] Care Team Providers Care Bearing Grinder Name Role Phone Yanely Mcgraw MD Primary Care Provider Reason for Visit * Reason Onset Date Comments Referral 11/09/2024 Sleep Medicine Encounter Details Date Type Department Care Team (Late st Contact Info) Description 11/09/2024 Telephone [facility] Cardiology [address] [place] [address] Jose Ozuna MD [address] [place] [address] [address] [place] [address] Referral (Sleep Medicine) Social History Tobacco Use Types Packs/Day Years Used Date Smoking Tobacco: Former Cigarettes Q uit: 10/19/2007 Smokeless Tobacco: Never Alcohol Use Standard Drinks/Week Comments Yes 0 (1 standard drink = 0.6 oz pur e alcohol) Sex and Gender Information Value Date Recorded Sex Assigned at Not on file Legal Sex Male 7:50 AM EST Gender Identity Not on file Sexual Orientation Not on file documented as of this encounter Progress Notes * Gloria Mckeon MA - 11/09/2024 2:57 PM EST Patient had letters sent in August and still has not reached back to sleep medicine services. Several attempts were made. documented in this encounter Plan of Treatment Not on file documented as of this encounter Visit Diagnoses Not on filedocumented in this encounter Care Teams Bearing Grinder Relationship Specialty Start Date End Date Yanely Mcgraw MD [address] [place] [phone] PCP - General Internal Medicine 10/03/24 documented as of this encounter
--- OUTSIDE RECORDS SUMMARY | 2024-12-01 12:19 | XMS_ITS | Clinical Summary ---
Author Organization [facility] Facility Address [address] [address] Care Team Providers Care Electric Meter Repairer Helper Name Role Phone Unavailable Primary Care Provider Unavailabl e Medications No known medications Active Problems No known active problems Social History Tobacco Use Types Packs/Day Years Used Date Smoking Tobacco: Never Assessed Sex and Gender Information Value Date Recorded Sex Assigned at Not on file Legal Sex Male 12:46 PM EST Gender Identity Not on file Sexual Orientation Not on file Plan of Treatment Health Maintenance Due Date Last Done Comments Colorectal Cancer Screening: Annual FOBT 2009 Colorectal Cancer Screening: Colonoscopy 2009 Colorectal Cancer Screening: Sigmoidoscopy 2009 Influenza Vaccine (#1) 2024 Hepatitis B Vaccine Aged Out No longe r eligible based on patient's age to complete this topic Pneumococcal Vaccine: Pediat rics (0 to 5 Years) and At-Risk Patients (6 to 64 Years) Aged Out No longer eligible b ased on patient's age to complete this topic Insurance [facility]
--- OUTSIDE RECORDS SUMMARY | 2024-12-01 12:19 | XMS_ITS | Clinical Summary ---
Author Organization [address] [place] [address] Address [address] [place] [address] Phone Care Team Providers Care Special Police Name Role Phone Yanely Mcgraw MD Primary Care Provider [phone] Allergies Active Allergy Reactions Criticality Noted Date Comments Sean Inhibitors 12/27/2014 hives Amlodipine-Valsartan 12/27/2014 Hives, treated in ER, norvasc was continued Valsartan 08/29/2024 Medications albuterol HFA (PROAIR HFA ; PROVENTIL HFA ; VENTOLIN HFA) 90 mcg/actuation inhaler Inhale 2 puffs by mouth 4 (four) times a day if needed (Cough or Wheezing). 08/13/2020 Active amLODIPine (NORVASC) 5 mg tablet Take 1 tablet (5 mg total) by mouth 1 (one) time each day. Active ascorbic acid (VITAMIN C) 250 mg tablet Take 2 tablets (500 mg total) by mouth 1 (one) time each day. Active aspirin 81 mg EC tablet Take 1 tablet (81 mg total) by mouth 1 (one) time each day. 03/20/2021 Active atorvastatin (LIPITOR) 80 mg tablet Take 1 tablet (80 mg total) by mouth 1 (one) time each day. 03/20/2021 Active cyanocobalamin (VITAMIN B-12) 1,000 mcg/mL injection Inject 1 mL (1,000 mcg total) into the shoulder, thigh, or buttocks every 30 (thirty) days. 11/23/2020 Active EPINEPHrine (EpiPen 2-Arie) 0.3 mg/0.3 mL injection Inject 0.3 mL (0.3 mg total) as directed if needed for anaphylaxis. Use as directed 03/23/2020 Active hydrALAZINE (APRESOLINE) 100 mg tablet Take 1 tablet (100 mg total) by mouth 1 (one) time each day. Active metoprolol tartrate (LOPRESSOR) 50 mg tablet Take 1 tablet (50 mg total) by mouth 2 (two) times a day. 03/20/2021 Active nitroglycerin (NITROSTAT) 0.[address] 1 tablet (0.4 mg total) under the tongue every 5 (five) minutes if needed for chest pain. 10/24/2020 Active SUMAtriptan (IMITREX) 50 mg tablet Take 1 tablet (50 mg total) by mouth if needed for migraine. Can repeat once 2 hours later. Not to exceed 2 tabs/24 hrs 02/27/2021 Active Active Problems Problem Noted Date Diagnosed Date Coronary artery calcification seen on CAT scan 1 10/29/2023 Overview (08/29/2024): Last Assessment & Plan: Patient status post multivessel coronary bypass with atypical chest discomfort is musculoskeletal nature risk factors and good control. Back to work without limitations at this time he is off Plavix postoperatively and is doing well no evidence of congestive heart failure no arrhythmias and no angina. Continue present medical therapy and risk factor modification Hyperlipidemia 08/29/2024 Overview (08/29/2024): Last Assessment & Plan: Patient's last LDL cholesterol was 66. This is at goal. Continue with statin as prescribed. Coronary artery disease 11/29/2020 Overview (08/29/2024): Coronary artery bypass grafting with FELDMAN-mid LAD, SVG-D1, Left radial artery- distal RCA with Dr. Leal on 11/01/2020 Last Assessment & Plan: Patient with a history of episodic coronary disease status post bypass. Medical management in place for hypertension hyperlipidemia. Last assessment of the EF stable at 55 to 60% no symptoms of progressive coronary disease risk factor modification well-maintained at this time. No change in therapy recommended Chest pain 10/24/2020 Overview (08/29/2024): Last Assessment & Plan: Blaine Stevens is a 60 yr. old Male with history of hypertension, hyperlipidemia, h/o coronary calcification identified on CT in the past and remote history of smoking. He reports intermittent chest discomfort with and without activity which started about 2 weeks ago. He had an EKG repeated today which shows inverted T waves in V3-V6. Given his PMH and new symptoms we will proceed with invasive evaluation with a coronary angiogram with possible PCI next week. Risks of procedure explained to patient and his daughter which includes risk of bleeding and the less than 1% risk for MA, stroke or . He agrees to proceed with angiogram. We will also start him on isosorbide 30mg daily, aspirin 81mg daily and atorvastatin 80mg daily. He is already on metoprolol. Patient was also given a prescription for sublingual nitroglycerin and given verbal instructions on how to use appropriately. I will see him in follow up after angiogram. COVID-19 virus detected 02/02/2020 Decreased exercise tolerance 04/22/2019 Dyspnea on exertion 04/22/2019 Angioedema 02/15/2015 Hypertension 02/15/2015 Overview (08/29/2024): Last Assessment & Plan: BP is well controlled at this point. No changes to medical therapies. Idiopathic urticaria 02/15/2015 Vitamin B12 deficiency 02/15/2015 Encounters Date Type Department Care Team Description 11/09/2024 Telephone [facility] [address] [place] [address] Jose Ozuna MD Referral (Sleep Medicine) 10/03/2024 9:00 AM EST Ancillary Procedure [facility] [address] [place] [address] Coronary artery calcification seen on CAT scan from Last 3 Months Immunizations Name Administration Dates Next Due Tdap Tetanus diptheria acell ular pertussis (Boostrix; Adacel) 7yo and older 06/30/2016 Surgical History Surgery Date Site/Laterality Comments LEG SURGERY 2005 PROCEDURE: HISTORICAL LEG SURGERY COLONOSCOPY 08/17/2017 PROCEDURE: HISTORICAL COLONOSCOPY; COMMENT: Negative screening examination. ANKLE SURGERY Right PROCEDURE: HISTORICAL ANKLE SURGERY Medical History Medical History Date Comments History of tobacco abuse DX:Hist ory of tobacco abuse Idiopathic urticaria 02/15/2015 DX:Idiopath ic urticaria Angioedema 02/15/2015 DX:Angioedema Hypertension 02/15/2015 DX:Hypertension Vitamin B12 deficiency 02/15/2015 DX:Vitami n B12 deficiency Elevated LFTs DX:Elevated LFTs Coronary artery calcificatio n seen on CAT scan DX:Coronary artery calcifica tion seen on CAT scan S/P CABG x 3 11/01/2020 DX:S/P CABG x 3 Hyperlipidemia DX:Hyperlipidemi a Seasonal allergies DX:Seasonal a llergies Family History Medical History Relation Name Comments Hypertension Brother 1 cva, aneurysm Cerebral aneurysm Brother 2 Heart attack Father Hypertension Father cad, d ue to cardiac issues. Cerebral aneurysm Father's side grandmoth er Hypertension Mother Other: seasonal allergies Mother Relation Name Status Comments Brother 1 Brother 2 Father Father's side Mother Social History Tobacco Use Types Packs/Day Years [...] on file Sexual Orientation Not on file Obstetrics History Last Filed Vital Signs Vital Sign Reading Time Taken Comments Blood Pressure 122/70 07/08/2024 8:45 AM EDT Sit ting R Arm Pulse 73 07/08/2024 8:45 AM EDT Temperature - - Respiratory Rate - - Oxygen Saturation - - Inhaled Oxygen Concentration - - Weight 108 kg (237 lb) 10/03/2024 9:57 AM EST Height 177.8 cm (5' 10 ) 10/03/2024 9:57 AM EST Body Mass Index 34.01 10/03/2024 9:57 AM EST Plan of Treatment Health Maintenance Due Date Last Done Comments Pneumococcal Vaccine: 50+ Ye ars (1 of 1 - PCV) 2010 Zoster Vaccines (1 of 2) 2010 DTaP,Tdap,and Td Vaccines (2 - Td or Tdap) 07/28/2016 06/30/2016 Depression Screening 09/27/2022 HIV Screening 09/27/2022 Social Influencers of Health Screening 09/27/2022 Hypertension/CHF/CAD Annual BMP Blood Test 09/28/2022 02/28/2021 COVID-19 Vaccine (2 - 2023-2 5 season) 2024 07/06/2021 Influenza Vaccine (#1) 2024 Cholesterol Screening (Lipid Panel) 02/28/2026 02/28/2021 Colorectal Cancer Screening: Colonoscopy 08/17/2027 08/17/2017 RSV Immunization Patients 60 + Years Old (1 - 1-dose 75+ series) 2035 Hepatitis C Screening Completed 06/30/2016 HIB Vaccines Aged Out No longer eligi ble based on patient's age to complete this topic HPV Vaccines Aged Out No longer eligi ble based on patient's age to complete this topic Hepatitis A Vaccines Aged Out No long er eligible based on patient's age to complete this topic Hepatitis B Vaccines Aged Out No long er eligible based on patient's age to complete this topic IPV Vaccines Aged Out No longer eligi ble based on patient's age to complete this topic MMR Vaccines Aged Out No longer eligi ble based on patient's age to complete this topic Meningococcal ACWY Vaccine Aged Out N o longer eligible based on patient's age to complete this topic Meningococcal B Vacine Aged Out No lo nger eligible based on patient's age to complete this topic Pneumococcal Vaccine: Pediat rics (0 to 5 Years) and At-Risk Patients (6 to 64 Years) Aged Out No longer eligi ble based on patient's age to complete this topic RSV Immunization Patients Un ebonie 20 months Aged Out No longer eligible b ased on patient's age to complete this topic Varicella Vaccines Aged Out No longer eligible based on patient's age to complete this topic Procedures Procedure Name Priority Date/Time Associated Diagnosis Comments TRANSTHORACIC ECHOCARDIOGRAM (TTE) COMPLETE Routine 10/03/2024 9:57 AM EST Coronary artery calcification seen on CAT scan HM ANNUAL BMP BLOOD TEST Routine 02/28/2021 LIPID PANEL Routine 02/28/2021 COLONOSCOPY Routine 08/17/2017 HEPATITIS C SCREENING Routine 06/30/2016 from Last 3 Months or Most Recently Relevant to Health Maintenance Results * (ABNORMAL) TRANSTHORACIC ECHOCARDIOGRAM (TTE) COMPLETE (10/03/2024 9:57 AM EST) Left Atrium Minor [place] 6.4 cm CV PACS Left Atrium Major [place] 5.7 cm CV PACS LA Area Sys (A2C) 22 cm2 CV PACS LA Area Sys (A4C) 22 cm2 CV PACS LA Volume (BP) 65 mL CV PACS RA Area 15.1 cm2 CV PACS RA 2D Volume 37 mL CV PACS AV Mean Gradient 3 mmHg CV PACS Ao VTI 21.7 cm CV PACS AV Peak Abraham 1.1 m/s CV PACS AV Peak Gradient 5 mmHg CV PACS AV Area Continuity Equation 3.5 cm2 CV PACS AV Area Peak Velocity 3.3 cm2 CV PACS Aortic Sinus Valsalva 3.8 cm CV PACS Ascending Aorta 3.5 cm CV PACS IVSD 1.1(A) 0.6 - 1.0 cm CV PACS LVIDD 4.4 4.2 - 5.8 cm CV PACS LVIDS 3.1 2.5 - 4.0 cm CV PACS LVOT Diameter 2.3 cm CV PACS LVOT Mean Grad 2 mmHg CV PACS LVOT Peak VTI 18.5 cm CV PACS LVOT Mean Abraham 0.6 m/s CV PACS LVOT Peak Abraham 0.9 m/s CV PACS LVOT Peak Gradient 3 mmHg CV PACS LVPWD 1.1(A) 0.6 - 1.0 cm CV PACS MV E' Tissue Velocity Lateral 10 cm/s CV PACS MV E' Tissue Velocity Septal 5 cm/s CV PACS LVOT Area 4.2 cm2 CV PACS LVOT Stroke Volume 77 mL CV PACS MV Deceleration [place] 3.7 m/s2 CV PACS E Wave Deceleration Time 209 119 - 242 ms CV PACS MV PHT 61 ms CV PACS MV Peak A Abraham 0.94 m/s CV PACS MV Peak E Abraham 0.77 m/s CV PACS MV Mean Gradient 2 mmHg CV PACS MV Mean Gradient 2 mmHg CV PACS MV VTI 28.7 cm CV PACS Mitral Valve Max Velocity 1.0 m/s CV PACS MV Peak Gradient 4 mmHg CV PACS MV Area PHT 3.6 cm2 CV PACS MV Area Continuity Equation 2.7 cm2 CV PACS PV Acceleration Time 103 ms CV PACS RV Diastolic Basal Dimension 3.8 2.5 - 4.1 cm CV PACS RV S' 10 cm/s CV PACS TAPSE 17 mm CV PACS TR Peak Velocity 1.82 m/s CV PACS TR Peak Gradient 13 mmHg CV PACS E/E' Ratio Septal 15 CV PACS E/E' Ratio Averaged 12 CV PACS Relative Wall Thickness ratio 0.50 CV PACS LVOT:AV VTI Index 0.85 CV PACS FS 30 % CV PACS LV Mass 2D 169 g CV PACS MV VTI:LVOT VTI ratio 1.6 CV PACS LVOT flow 249 mL/s CV PACS AV Velocity Ratio 0.82 CV PACS E/A Ratio 0.8 CV PACS E/E' Ratio Lateral 8 CV PACS BSA 2.3 m2 CV PACS LA Volume Index (BP) 29 mL/m2 CV PACS LVIDD Index 1.96 cm/m2 CV PACS LVIDS Index 1.38 cm/m2 CV PACS LV Mass Index 2D 75 50 - 102 g/m2 CV PACS LVOT Stroke Index 34 mL/m2 CV PACS RA 2D Volume Index 17(A) 18 - 32 mL/m2 CV PACS ROBIN Index (VTI) 1.58 cm2/m2 CV PACS ROBIN Index (Pk Abraham) 1.47 cm2/m2 CV PACS Ascending Aorta Index 1.56 cm/m2 CV PACS Anatomical Region Laterality Modality Ultrasound Narrative 10/04/2024 5:43 PM EST ?Left ventricle cavity size is normal. Left ventricular systolic function is in the normal range with an ejection fraction of 60-65%. ?No regional LV wall motion abnormalities noted. ?Left ventricle mild concentric hypertrophy. ?Right ventricle cavity is normal. Right ventricular systolic function is normal. ?The Sinus of Valsalva is dilated (3.8 cm). The ascending aorta is dilated (3.5 cm). ?Compared to previous study dated 05/20/2019 no significant change Left Ventricle Left ventricle cavity size is normal. There is mild concentric hypertrophy. Systolic function is normal with an ejection fraction of 60-65%. There are no regional LV wall motion abnormalities. Diastolic function is indeterminate. Right Ventricle Right ventricle cavity appears normal. Systolic function is normal. Left Atrium Left atrium cavity size is normal. Right Atrium Right atrium cavity is normal. IVC/SVC Inferior vena cava structure is normal. RA pressures is estimated to be 3 mmHg (IVC diameter <21 mm and decreases >50% during inspiration). Mitral Valve Mitral valve structure is normal. There is mild annular calcification. There is trace regurgitation. There is no evidence of mitral valve stenosis. Tricuspid Valve Tricuspid valve structure is normal. There is trace regurgitation. There is no evidence of tricuspid valve stenosis. Aortic Valve The aortic valve is trileaflet. There is no regurgitation or stenosis. Pulmonic Valve Visualized portions of the pulmonic valve appear normal. No significant pulmonic valve regurgitation. There is no evidence of pulmonic valve stenosis. Ascending Aorta The Sinus of Valsalva is (3.8 cm). The ascending aorta is (3.5 cm). Pericardium Pericardium appears normal. There is no pericardial effusion. Study Details Overall the study quality was adequate. Result [facility] Jose Ozuna MD CV ECHO PROCEDURES Final Resul t * Annual BMP Blood Test (02/28/2021) [facility] Annual BMP Blood Test Abstracted Result [facility] Serafin VALDEZ HEALTH MAINTENANCE Final Result * Lipid panel (02/28/2021) [facility] LDL/HDL Ratio 3 0 - 4 Triglycerides 85 0 - 150 mg/dL Cholesterol 130 0 - 200 mg/dL HDL 47 >=40 mg/dL LDL Cholesterol 66 0 - 100 mg/dL Blood Venous blood specimen / Unknown Result [facility] Serafin VALDEZ LAB BLOOD ORDERABLES Meghna l Result * Colonoscopy (08/17/2017) [facility] Colonoscopy No interpretation , abstracted Anatomical Region Laterality Modality Other us Historical Provider HEALTH MAINTENANCE Final Result * Hepatitis C Screening (06/30/2016) Hepatitis C Screening Abstracted us Historical Provider HEALTH MAINTENANCE Final Result from Last 3 Months or Most Recently Relevant to Health Maintenance Insurance [facility] Care Teams Special Police Relationship Specialty Start Date End Date Yanely Mcgraw MD [address] [facility] [place] [id number] PCP - General Internal Medicine 10/03/24
[2024-12-01 12:54] LABS: Appearance Urine Clear; Color Urine Yellow; Glucose Urine UA Negative (Negative); Leukocyte Esterase Urine Negative (Negative); Nitrite Urine Negative (Negative); PH 6.5 (5.0-9.0); UMIC TRIGGER UA YES; Urine Blood Negative (Negative); Urine Ketones Negative (Negative); Urine Protein 30 (1+) mg/dL (Neg-Trace)
[2024-12-01 12:56] LABS: MANUAL DIFF FLAG NO
[2024-12-01 12:59] LABS: Bacteria Urine None Seen (None Seen); Hyaline Casts Urine 0-2 /LPF (0-2); RBC Urine 0-2 /HPF (0-2); Squamous Epithelial Cell Urine 0-2 /HPF (0-2); WBC Urine 0-5 /HPF (0-5)
[2024-12-01 13:00] LABS: Basophils Percent Auto 0.1 % (0-2); Eosinophils Absolute Auto 0.5 X10*3/uL (0.0-0.4); Eosinophils Percent Auto 5.5 % (0-4); Hematocrit 45.7 % (42.0-52.0); Hemoglobin 15.5 g/dl (14.0-18.0); Imm Gran Abs Auto 0.03 X10*3/uL (0.00-0.03); Imm Gran Pct Auto 0.3 % (0.0-0.4); Lymphocytes Absolute Auto 2.4 X10*3/uL (1.2-4.9); Lymphocytes Percent Auto 25.9 % (20-40); Mean Corpuscular HGB Conc 33.9 g/dl (31.0-36.0); Mean Corpuscular Hemoglobin 29.4 pg (27.0-33.0); Mean Corpuscular Volume 86.6 fL (80.0-98.0); Mean Platelet Volume 9.5 fL (9.4-12.4); Monocytes Absolute Auto 0.8 X10*3/uL (0.1-1.2); Monocytes Percent Auto 9.1 % (2-11); Neutrophils Absolute Auto 5.4 x10*3/uL (2.0-8.3); Neutrophils Percent Auto 59.1 % (45-73); Platelet Count 193 X10*3/uL (160-400); Red Blood Count 5.28 X10*6/uL (4.60-5.80); Red Cell Distribution Width 13.1 % (11.0-16.0); White Blood Count 9.1 X10*3/uL (4.8-10.8)
[2024-12-01 13:05] LABS: Estimated Average Glucose 114 mg/dL; Hemoglobin A1C 152.6216 umol/L; Hemoglobin A1c % 5.6 % (<6.0); Total Hemoglobin (HGBA1C) 4039.0817 umol/L
[2024-12-01 13:22] LABS: Creatinine Urine 122.44 mg/dL; Microalbum/Creatinine Ratio Ur 133.9 ug/mg cr (<30)
[2024-12-01 13:25] LABS: Alanine Aminotransferase 51 U/L (0-40); Albumin Level 4.1 g/dL (3.5-5.0); Alkaline Phosphatase 77 U/L (39-117); Anion Gap 12 (12-20); Aspartate Amino Transferase 37 U/L (5-37); Bilirubin Total 1.5 mg/dL (0.0-1.0); Blood Urea Nitrogen 16 mg/dL (9-16); Carbon Dioxide 24 mmol/L (22-29); Chloride 107 mmol/L (96-108); Cholesterol 133 mg/dL (<200); Estimated Glomerular Filt Rate > 60; Glucose Fasting 90 mg/dL (60-99); HDL Cholesterol 42 mg/dL (>40); LDL Cholesterol Calculated 75 mg/dL (<100); Potassium 3.8 mmol/L (3.3-5.1); Sodium 139 mmol/L (135-145); Total Protein 7.6 g/dL (6.5-8.0); Triglycerides 80 mg/dL (<150)
[2024-12-01 13:44] LABS: PSA,Total (Free>4and<10) 0.25 ng/mL (0.00-4.00)
[2024-12-01 13:57] LABS: Folate 13.9 ng/mL (> or = 4.0); Vitamin B12 598 pg/mL (200-900)
== END 2024-12-01 11:54 | disposition home or self-care (01) ==
LOC: HO.HMGCLDS 11:53
PROVIDERS: PCP Internal Medicine; Visit Provider Internal Medicine
DX: N40.0 Benign prostatic hyperplasia without lower urinary tract symptoms (principal); I10 Essential (primary) hypertension; E78.5 Hyperlipidemia, unspecified; E53.8 Deficiency of other specified B group vitamins; Z12.5 Encounter for screening for malignant neoplasm of prostate; Z13.1 Encounter for screening for diabetes mellitus
CPT/HCPCS: 36415; 80053; 80061; 81001; 82043; 82570; 82607; 82746; 83036; 84153; 85025

== ENCOUNTER 2024-12-06 11:50 | Outpatient (AMB) | payer BC, SELFPAY ==
[2024-12-06 11:53] VITALS: BP 100/70; PULSE 85; TEMP 36.6; O2SAT 96; BMI 34.8
--- NOTE | 2024-12-06 11:53 | MHC.PC.OV ---
Vital Signs 12/06/24 11:53 Height 5 ft 9 in Weight 236 lb BMI 34.8 BP 100/70 Blood Pressure Location Rt brachial Position Sitting Pulse 85 Pulse Source Pulse Oximeter Temp 97.9 F Temp Source Oral Pulse Oximetry (%) 96 Intake Visit Reasons: Annual PE Intake Note: pt is here for annual exam Box Lidder Required: No Allergies THEODORE Inhibitors Adverse Reaction (Intermediate, Verified 12/06/24 11:59) cough losartan Adverse Reaction (Intermediate, Verified 12/06/24 11:59) Cough Medication List - Last Reconciled 12/06/24 by Yanely Mcgraw MD albuterol sulfate 90 mcg/actuation 2 puffs inhalation Q6H PRN amlodipine 5 mg PO DAILY ascorbic acid (vitamin C) 500 mg PO DAILY aspirin 81 mg PO DAILY atorvastatin 80 mg PO DAILY cyanocobalamin (vitamin B-12) 1,000 mcg subcut Q4W finasteride 5 mg PO DAILY hydralazine 100 mg PO BID metoprolol tartrate 50 mg PO BID naproxen 500 mg PO BID sumatriptan succinate 1 tabl at onset of headache, repeat in 2 hrs as needed orally every 2 hours PRN; do not exceed 2 doses per 24 hrs tamsulosin (Flomax) 0.4 mg PO BEDTIME Tobacco use date assessed: 12/06/24 Fall risk assessment: No Falls in past year Last assessed Fall Risk: 12/06/24 Dental Screening Dental Screen Date: 12/06/24 Did you have a dental visit in the last 12 months?: Yes Did you have a dental problem in the last 6 months where you did not have access to dental care?: No Was dental information given to patient?: Patient has dentist HPI Annual PE HPI Details Patient presents for a physical. He will have a right knee replacement surgery for advanced osteoarthritis PFSH Medical History Annual physical exam Cough Vitamin B 12 deficiency HTN (hypertension) CAD (coronary artery disease) Hyperlipidemia Surgical History S/P CABG x 3 Social History Housing: House Patient Tobacco Use Status: Former Tobacco user Years Smoked: 40 years e-Cigarette/Vaping Use: Never Used service: No Current occupational status: employed Current occupation: [employer] Cognitive needs: No Hearing needs: No Vision needs: No Questionnaire PHQ-9 Over the last 2 weeks, how often have you been bothered by any of the following problems? 1. Little interest or pleasure in doing things: not at all 2. Feeling down, depressed, or hopeless: not at all 3. Trouble falling or staying asleep, or sleeping too much: not at all 4. Feeling tired or having little energy: not at all 5. Poor appetite or overeating: not at all 6. Feeling bad about yourself - or that you are a failure or have let yourself or your family down: not at all 7. Trouble concentrating on things, such as reading the newspaper or watching television: not at all 8. Moving or speaking so slowly that other people could have noticed. Or the opposite - being so fidgety or restless that you have been moving around a lot more than usual: not at all 9. Thoughts that you would be better off or of hurting yourself in some way: not at all Total score: 0 Depression Screening Interpretation: Negative Depression Screening Done: Yes 28282 - PHQ-9 Billing: Yes Source: Developed by Drs. Ciro Leiva, Julissa Rey, Manpreet Sherman and colleagues, with an educational alice from [employer]. Thrive Questionnaire Date Thrive assessed: 12/06/24 I am a: Patient What is your living situation today?: I have a steady place to live Within the past 12 months, did the food you bought not last and you didn't have the money to get more?: Never true Within the past 12 months, did you worry whether your food would run out before you got money to buy more?: Never true Do you have trouble paying for medicines?: No Do you have trouble getting transportation to medical appointments?: No Do you have trouble paying your heating and electricity bill?: No Do you have trouble taking care of your child, family member or friend?: No Do you have trouble with day-to-day activities such as bathing, preparing meals, shopping, managing finances, etc.?: No Are you currently unemployed and looking for a job?: No Are you interested in more education?: No Please select the resources that you would like help with: None THRIVE Score: 0 AUDIT C Alcohol Use Questionnaire (AUDIT-C) 1. How often do you have a drink containing alcohol?: Never 3. How often do you have six or more drinks on one occasion?: Never Total Score: 0 Score Reviewed/Action Taken: Yes SOTO-7 AMB Questionnaire SOTO-7 Date SOTO - 7 assessed: 12/06/24 Feeling nervous, anxious, or on edge: 0 = Not at all Not being able to stop or control worryin = Not at all Worrying too much about different things: 0 = Not at all Trouble relaxin = Not at all Being so restless that it is hard to sit still: 0 = Not at all Becoming easily annoyed or irritable: 0 = Not at all Feeling afraid as if something awful might happen: 0 = Not at all Total SOTO-7 score (0-4 normal; 5-9 mild; 10-14 moderate; 15-21 severe): 0 Source: Developed by Drs. Ciro Leiva, Julissa Rey, Manpreet Sherman and colleagues, with an educational alice from [employer]. SOTO-7 Assessment Billing SOTO-7 Assessment Tool: SOTO-7 Assessment 45196 Review of Systems Const All systems reviewed & are unremarkable except as noted in HPI and below Eyes Reports no additional complaints ENT Reports no additional complaints Card Reports no additional complaints Resp Reports no additional complaints GI Reports no additional complaints Reports no additional complaints Physical exam (Primary Care) Vital Signs: Last Vital Signs Temp 97.9 F 12/06/24 11:53 Pulse 85 12/06/24 11:53 BP 100/70 12/06/24 11:53 Pulse Ox 96 12/06/24 11:53 BMI result Body Mass Index 34.8 Tobacco/Smoking Status: Tobacco use Status Tobacco use date assessed 12/06/24 12/06/24 12:01 Patient Tobacco Use Status Former Tobacco user 12/06/24 11:53 e-Cigarette/Vaping Use Never Used 12/06/24 11:53 PHQ-9: PHQ-9 Score PHQ-9: Total score 0 12/06/24 12:01 Depression Screening Interpretation: Negative Thrive Assessment: Date of Thrive Assessment Date Thrive assessed 12/06/24 12/06/24 11:53 Const General: no acute distress HENMT Head: Yes normal to inspection Ears: TM's normal bilaterally Face and sinus: Yes normal facial exam Mouth: Normal oral and palatal mucosa present Eyes General: appearance normal, both eyes and all related structures Neck Neck: Yes no lymphadenopathy and Yes supple Resp Effort & Inspection: normal respiratory effort Auscultation: clear to auscultation bilaterally Cardio Rhythm: regular rhythm Heart sounds: S1 normal heart sound present and S2 normal heart sound present GI Inspection: Yes normal to inspection Palpation (GI): Soft to palpation Percussion: Yes normal to percussion Auscultation: normal bowel sounds Coding Level of Care Code Est Pt Prev Care 40-64y(04545) Diagnoses BPH (benign prostatic hyperplasia) N40.0 Annual physical exam Z00.00 HTN (hypertension) I10 Hyperlipidemia E78.5 Additional Codes SOTO-7 Assessment Billing - SOTO-7 Assessment Tool: SOTO-7 Assessment 85404 ([id number]) PHQ-9 - 19962 - PHQ-9 Billing: Yes ([id number]) Assessment & Plan Assessment & Plan (1) BPH (benign prostatic hyperplasia): Code(s): N40.0 - Benign prostatic hyperplasia without lower urinary tract symptoms Category: Medical Plan: Continue Flomax and add finasteride (2) Annual physical exam: Code(s): Z00.00 - Encounter for general adult medical examination without abnormal findings Category: Medical Plan: Well-balanced diet regular physical activity weight loss discussed with the patient. Patient will check with GI colonoscopy schedule (3) HTN (hypertension): Comment: Intolerant to THEODORE inhibitors and ARBs Code(s): I10 - Essential (primary) hypertension Category: Medical Plan: Continue current medications (4) Hyperlipidemia: Code(s): E78.5 - Hyperlipidemia, unspecified Category: Medical Plan: Continue statin Medications: New finasteride 5 mg PO DAILY 90 tabs 3RF Refilled hydralazine 100 mg PO BID 180 tabs 3RF metoprolol tartrate 50 mg PO BID 180 tabs 3RF tamsulosin (Flomax) 0.4 mg PO BEDTIME 90 caps 3RF amlodipine 5 mg PO DAILY 90 tabs 3RF atorvastatin 80 mg PO DAILY 90 tabs 3RF Discontinued naproxen Discontinued Reason: Doctor's Order 500 mg PO BID 60 tabs 0RF sumatriptan succinate Discontinued Reason: Doctor's Order 1 tabl at onset of headache, repeat in 2 hrs as needed orally every 2 hours PRN; do not exceed 2 doses per 24 hrs 14 tabs 4RF migraine headache
--- OUTSIDE RECORDS SUMMARY | 2024-12-06 12:59 | XMS_ITS | Clinical Summary ---
Author Organization [address] [place] [address] Address [address] [place] [address] Phone Care Team Providers Care Alley Worker Name Role Phone Yanely Mcgraw MD Primary Care Provider [phone] Allergies Active Allergy Reactions Criticality Noted Date [...] and the less than 1% risk for [place], stroke or . He agrees to proceed [...] Type Department Care Team Description 11/09/2024 Telephone [facility] [address] [place] [address] Jose Ozuna MD Referral (Sleep Medicine) 10/03/2024 9:00 AM EST Ancillary Procedure [facility] [address] [place] [address] Coronary artery calcification seen on [...] 2010 Zoster Vaccines (1 of 2) 2010 Depression Screening 09/27/2022 HIV Screening 09/27/2022 Social Influencers of Health Screening 09/27/2022 Hypertension/CHF/CAD Annual BMP Blood Test 09/28/2022 02/28/2021 COVID-19 Vaccine (2 - 2023-2 5 season) 2024 07/06/2021 Influenza Vaccine (#1) 2024 Cholesterol Screening (Lipid Panel) 02/28/2026 02/28/2021 DTaP,Tdap,and Td Vaccines (2 - Td or Tdap) 06/30/2026 06/30/2016 Colorectal Cancer Screening: Colonoscopy 08/17/2027 08/17/2017 RSV [...] (10/03/2024 9:57 AM EST) Left [facility] [place] 6.4 cm CV PACS Left [facility] [place] 5.7 cm CV PACS [place] Area Sys [...] Volume 77 mL CV PACS MV Deceleration [place] 3.7 m/s2 CV PACS E Wave Deceleration [...] Overall the study quality was adequate. Result [facility] Jose Ozuna MD CV ECHO PROCEDURES Final Resul t * Annual BMP Blood Test (02/28/2021) [facility] Annual BMP Blood Test Abstracted Result [facility] Historical Provider HEALTH MAINTENANCE Final Result * Lipid panel (02/28/2021) [facility] LDL/HDL Ratio 3 0 - 4 Triglycerides 85 0 - 150 mg/dL Cholesterol 130 0 - 200 mg/dL HDL 47 >=40 mg/dL LDL Cholesterol 66 0 - 100 mg/dL Blood Venous blood specimen / Unknown Result [facility] Historical Provider LAB BLOOD ORDERABLES Meghna l Result * Colonoscopy (08/17/2017) [facility] Colonoscopy No interpretation , abstracted Anatomical Region Laterality Modality Other Result [facility] Historical Provider HEALTH MAINTENANCE Final Result * Hepatitis C Screening (06/30/2016) Hepatitis C Screening Abstracted Historical Provider HEALTH MAINTENANCE Final Result from Last 3 Months or Most Recently Relevant to Health Maintenance Insurance [place] [place] [id number] [facility] Care Teams Alley Worker Relationship Specialty Start Date End Date Yanely Mcgraw MD [address] [facility] [place] [address] PCP - General Internal Medicine 10/03/24
--- OUTSIDE RECORDS SUMMARY | 2024-12-06 12:59 | XMS_ITS | Encounter Summary ---
Author Organization [facility] Address [address] [place] [address] Care Team Providers Care Bench Inspector Name Role Phone Carina Rush DO Primary Care Pro vider Unavailable Carina Rush DO Unavailable Unavailable Jose Ozuna MD Unavailable [phone] Gerri Arriaza NP Unavailable [phone] Yanely Mcgraw MD Primary Care Provider Unavaila ble Reason for Referral * (Routine) - Authorized/Booked Specialty Diagnoses / Procedures Referred By Josef hernandez Referred To Contact Allergy & Immunology / Allergy Procedures REFERRAL TO ALLERGY Carina Rush DO [address] [place] [address] External Allergy Referral ID Status Reason Start Date Expiration Date V isits Requested Visits Authorized SEE REVIEW 12/27/14 Authorized/ Booked 12/27/2014 03/29/2015 1 1 Encounter Details Date Type Department Care Team Description 12/27/2014 Orders Only Adult Medicine [address] [address] Carina Rush DO Social History Tobacco Use Types Packs/Day Years Used Date Smoking Tobacco: Former Smokeless Tobacco: Former Comments:quit 2007 Alcohol Use Standard Drinks/Week Comments Not Asked 0 (1 standard drink = 0.6 oz pur e alcohol) Alcohol Habits Answer Date Recorded How often do you have a drink containing alcohol ? Never 11/29/2020 How many drinks containing a lcohol do you have on a typical day when you are drinking? Not asked How often do you have six or more drinks on one occasion? Not asked Physical Activity Answer Date Recorded On average, how many days pe r week do you engage in moderate to strenuous exercise (like walking fast, running, jogging, dancing, swimming, biking, or other activities that cause a light or heavy sweat)? 0 days 10/24/2020 On average, how many minutes do you engage in exercise at this level? 0 min 10/24/2020 Sex Assigned at Date Recorded Not on file documented as of this encounter Plan of Treatment Not on file documented as of this encounter Visit Diagnoses Not on filedocumented in this encounter Care Teams Bench Inspector Relationship Specialty Start Date End Date Carina Rush DO PCP - General Internal Medicine 10/18/14 06/27/21 Yanely Mcgraw MD [address] [place] [address] [place] [address] PCP - General Internal Medicine 06/28/21 Carina Rush DO Internal Medicine 04/06/14 07/06/24 Jose Ozuna MD [address] [place] [address] Dial Refinisher Cardiovascular Disease 10/15/20 Gerri Arriaza NP [address] [place] [address] [place] [address] Nurse Practitioner Cardiology 10/15/20 documented as of this encounter
--- OUTSIDE RECORDS SUMMARY | 2024-12-06 12:59 | XMS_ITS | Encounter Summary ---
Author Organization [facility] Address [address] [place] [address] Care Team Providers Care Agency Sales Director Name Role Phone Carina Rush DO Primary Care Pro vider Unavailable Carina Rush DO Unavailable Unavailable Jose Ozuna MD Unavailable [phone] Gerri Arriaza NP Unavailable [phone] Yanely Mcgraw MD Primary Care Provider Unavaila ble Reason for Visit * Reason Comments E-prescribe Rx Request Encounter Details Date Type Department Care Team Description 05/03/2019 Refill Adult Medicine [address] [address] Dorcas Rueda NP E-prescribe Rx Request Social History Tobacco Use Types Packs/Day Years Used Date Smoking Tobacco: Former Cigarettes Smokeless Tobacco: Never Comments:quit 2007 Alcohol Use Standard Drinks/Week Comments No 0 (1 standard drink = 0.6 oz [...] on file documented as of this encounter Miscellaneous Notes * Telephone Encounter - Aliya Boyce M.A. - 05/03/2019 11:50 AM EDT Lab Results Component Value Date NA 137 04/08/2019 K 4.2 04/08/2019 CO2 27 04/08/2019 CL 104 04/08/2019 BUN 17 04/08/2019 CREAT 1.00 04/08/2019 GLU 90 04/08/2019 CA 9.0 04/08/2019 GFR > 60 04/08/2019 * Telephone Encounter - Joyce Mcmahan - 05/03/2019 11:38 AM EDT Patient would like script to be: E-PRESCRIBED/FAXED TO PHARMACY WHEN WAS THE PATIENT'S LAST APPOINTMENT IN ADULT MEDICINE? 04/22/19 WHEN WAS THE LAST TIME THE PATIENT SAW THEIR PCP? Same as above Does patient have an upcoming appointment? Yes 08/29/19 (THE MEDICATION REQUESTED IS ON THE MED LIST ABOVE) All of the medications requested were on the CURRENT MEDS list Did you check the Pharmacy information above?: YES Patient wants: 90 -day supply Is this a mail order prescription request ? NO If the refill is from a FAXED refill request what is the RX # listed on the fax? N/A Patients current insurance carrier is: Payor: HARINI/PPO POS / Plan: PPO $10 [place] [id number] / ProductType: PPO [id number] documented in this encounter Plan of Treatment Not on file documented as of this encounter Visit Diagnoses Not on filedocumented in this encounter Care Teams Agency Sales Director Relationship Specialty Start Date End Date Carina Rush DO PCP - General Internal Medicine 10/18/14 06/27/21 Yanely Mcgraw MD [address] [place] [address] [address] [place] [address] PCP - General Internal Medicine 06/28/21 Carina Rush DO Internal Medicine 04/06/14 07/06/24 Jose Ozuna MD [address] [place] [address] [address] [place] [address] Schedule Maker Cardiovascular Disease 10/15/20 Gerri Arriaza NP [address] [place] [address] [address] [place], [place] [phone] Nurse Practitioner Cardiology 10/15/20 documented as of this encounter
--- OUTSIDE RECORDS SUMMARY | 2024-12-06 12:59 | XMS_ITS | Encounter Summary ---
Author Organization [facility] Address [address] [place] [address] Care Team Providers Care Cement Mason Maintenance Name Role Phone Carina Rush DO Primary Care Pro vider Unavailable Carina Rush DO Unavailable Unavailable Jose Ozuna MD Unavailable [phone] Gerri Arriaza NP Unavailable [phone] Yanely Mcgraw MD Primary Care Provider Unavaila ble Encounter Details Date Type Department Care Team Description 03/23/2015 Orders Only Adult Medicine [address] [address] Carina Rush DO Social History Tobacco Use [...] on filedocumented in this encounter Care Teams Cement Mason Maintenance Relationship Specialty Start Date End Date Carina Rush DO PCP - General Internal Medicine 10/18/14 06/27/21 Yanely Mcgraw MD [address] [place] [address] [address] [place] [address] PCP - General Internal Medicine 06/28/21 Carina Rush DO Internal Medicine 04/06/14 07/06/24 Jose Ozuna MD [address] [place] [address] [address] [place] [address] Rn Private Duty Cardiovascular Disease 10/15/20 Gerri Arriaza NP [address] [place] [address] [address] [place] [address] Nurse Practitioner Cardiology 10/15/20 documented as of this encounter
--- OUTSIDE RECORDS SUMMARY | 2024-12-06 12:59 | XMS_ITS | Encounter Summary ---
Author Organization [facility] Address [address] [place] [address] Care Team Providers Care Lead Business Analyst Name Role Phone Carina Rush DO Primary Care Pro vider Unavailable Carina Rush DO Unavailable Unavailable Jose Ozuna MD Unavailable [phone] Gerri Arriaza NP Unavailable [phone] Yanely Mcgraw MD Primary Care Provider Unavaila ble Reason for Visit * Reason Onset Date Comments refill request 03/19/2021 Encounter Details Date Type Department Care Team Description 03/19/2021 Refill Adult Medicine [address] [address] Carina Rush DO refill request Social History Tobacco Use Types Packs/Day Years Used Date Smoking Tobacco: Former Cigarettes Smokeless Tobacco: Former Comments:quit 2007 Alcohol Use Standard Drinks/Week Comments No 0 (1 standard drink = 0.6 oz pur e alcohol) Occasionally drinks alcohol Alcohol Habits Answer Date Recorded How often [...] Assigned at Date Recorded Not on file COVID-19 Exposure Response Date Recorded In the last month, have you been in contact with someone who was confirmed or suspected to have Coronavirus / COVID-19? No / Unsure 03/20/2021 10:23 AM EDT documented as of this encounter Miscellaneous Notes * Telephone Encounter - Devora Yoon M.A. - 03/20/2021 1:07 PM EDT Lab Results Component Value Date CHOL 130 02/28/2021 LDL 66 02/28/2021 HDL 47 02/28/2021 TRIG 85 02/28/2021 SGOT 31 10/01/2020 SGPT 51 10/01/2020 Lab Results Component Value Date NA 139 02/28/2021 K 4.1 02/28/2021 CO2 28 02/28/2021 CL 107 02/28/2021 BUN 17 02/28/2021 CREAT 1.19 02/28/2021 GLU 101 02/28/2021 CA 9.0 02/28/2021 GFR > 60 02/28/2021 Last appt 02/27/21 * Telephone Encounter - Winifred Stanley - 03/19/2021 12:48 PM EDT Patient would like script to be: E-PRESCRIBED/FAXED TO PHARMACY WHEN WAS THE PATIENT'S LAST APPOINTMENT IN ADULT MEDICINE? [id number] WHEN WAS THE LAST TIME THE PATIENT SAW THEIR PCP? Same as above Does patient have an upcoming appointment? No-patient refused appointment, will call back to book appointment (THE MEDICATION REQUESTED IS ON THE MED [...] N/A Patients current insurance carrier is: Payor: HARINI/ROSEMARIE POS / Plan: PPO $10 [place] [id number] / ProductType: PPO [id number] documented in this encounter Plan of Treatment Not on file documented as of this encounter Visit Diagnoses Diagnosis Chest pain, unspecified type documented in this encounter Care Teams Lead Business Analyst Relationship Specialty Start Date End Date Carina Rush DO PCP - General Internal Medicine 10/18/14 06/27/21 Yanely Mcgraw MD [address] [place] [address] [place] [address] PCP - General Internal Medicine 06/28/21 Carina Rush DO Internal Medicine 04/06/14 07/06/24 Jose Ozuna MD [address] [place] [address] [place] [address] Hse Specialist Cardiovascular Disease 10/15/20 Gerri Arriaza NP [address] [place] [address] [place] [address] Nurse Practitioner Cardiology 10/15/20 documented as of this encounter
--- OUTSIDE RECORDS SUMMARY | 2024-12-06 12:59 | XMS_ITS | Encounter Summary ---
Author Organization [facility] Address [address] [place] [address] Care Team Providers Care Editor Department Name Role Phone Carina Rush DO Primary Care Pro vider Unavailable Carina Rush DO Unavailable Unavailable Jose Ozuna MD Unavailable [phone] Gerri Arriaza NP Unavailable [phone] Yanely Mcgraw MD Primary Care Provider Unavaila ble Encounter Details Date Type Department Care Team Description 03/01/2021 SCAN Medical Records [address] [place] [address] Shabbir Menezes MD [address] [place] [address] Social History Tobacco Use Types Packs/Day Years [...] have Coronavirus / COVID-19? No / Unsure 02/27/2021 2:24 PM EDT documented as of this encounter Plan of Treatment Not on file documented as of this encounter Procedures Procedure Name Priority Date/Time Associated Diagnosis Comments OUTSIDE VASCULAR STUDY Routine 03/01/2021 documented in this encounter Results * OUTSIDE VASCULAR STUDY (03/01/2021) Provider Abstract CARDIOLOGY documented in this encounter Visit Diagnoses Not on filedocumented in this encounter Care Teams Editor Department Relationship Specialty Start Date End Date Carina Rush DO PCP - General Internal Medicine 10/18/14 06/27/21 Yanely Mcgraw MD [address] [place] [address] [place] [address] PCP - General Internal Medicine 06/28/21 Carina Rush DO Internal Medicine 04/06/14 07/06/24 Jose Ozuna MD [address] [place] [address] [place] [address] Loom Blower Cardiovascular Disease 10/15/20 Gerri Arriaza NP [address] [place] [address] [place] [address] Nurse Practitioner Cardiology 10/15/20 documented as of this encounter
--- OUTSIDE RECORDS SUMMARY | 2024-12-06 12:59 | XMS_ITS | Encounter Summary ---
Author Organization [facility] Address [address] [place] [address] Care Team Providers Care Surgical Rn Name Role Phone Carina Rush DO Primary Care Pro vider Unavailable Carina Rush DO Unavailable Unavailable Jose Ozuna MD Unavailable [phone] Gerri Arriaza NP Unavailable [phone] Yanely Mcgraw MD Primary Care Provider Unavaila ble Encounter Details Date Type Department Care Team Description 09/09/2019 House Principal Report Medical Records [address] [place] [address] [facility] Social History Tobacco Use Types Packs/Day Years [...] on filedocumented in this encounter Care Teams Surgical Rn Relationship Specialty Start Date End Date Carina Rush DO PCP - General Internal Medicine 10/18/14 06/27/21 Yanely Mcgraw MD [address] [place] [address] [address]IVE [address] [place] [address] PCP - General Internal Medicine 06/28/21 Carina Rush DO Internal Medicine 04/06/14 07/06/24 Jose Ozuna MD [address] [place] [address] [address] [place] [address] Carburetor Expert Cardiovascular Disease 10/15/20 Gerri Arriaza NP [address] [place] [address] [address]IVE [address] [place] [address] Nurse Practitioner Cardiology 10/15/20 documented as of this encounter
--- OUTSIDE RECORDS SUMMARY | 2024-12-06 12:59 | XMS_ITS | Encounter Summary ---
Author Organization [facility] Address [address] [facility] [address] [place] [address] Phone Care Team Providers Care Cv Rn Name Role Phone Unavailable Primary Care Provider Unavailabl e Encounter Details Date Type Department Care Team (Late st Contact Info) Description 01/28/2021 Orders Only [facility] [address] [facility] [address] [place] [phone] Shabbir Menezes MD [address] [facility] [address] [place] [phone] Primary hypertension Social History Tobacco Use Types [...]
--- OUTSIDE RECORDS SUMMARY | 2024-12-06 12:59 | XMS_ITS | Clinical Summary ---
Author Organization [facility] Address [address] [place] [address] Care Team Providers Care Jig Operator Name Role Phone Jose Ozuna MD Unavailable [phone] Gerri Arriaza NP Unavailable [phone] Yanely Mcgraw MD Primary Care Provider Unavaila ble Allergies Active Allergy Reactions Severity Noted Date Comments Sean Inhibitors 12/27/2014 hives Amlodipine Besylate-Valsartan 12/27/2014 Hives, treated in ER, norvas was continued Valsartan Medications Medication Sig Dispensed Refills Start Date End Date Status EPINEPHrine (EPIPEN 2-DEBBI) 0.3 MG/0.3ML Solution Auto-injector Inject 1 Device as directed as needed (anaphylaxis). Use as directed 2 Each 3 03/23/2020 Active ALBUTEROL SULFATE (PROAIR HFA) 108 (90 Base) MCG/ACT Aero Soln Inhale 2 Puffs into the lungs 4 times daily as needed for Cough or Wheezing. 1 Inhaler 0 08/13/2020 Active nitroGLYCERIN (NITROSTAT) 0.4 MG SL tabletIndications:Ch est pain, unspecified type Place 1 Tab under the tongue every 5 minutes as needed for Chest pain. 1 Bottle 0 10/24/2020 Active cyanocobalamin 1000 MCG/ML injection Inject 1 mL into the muscle every 30 days. 1 mL 5 11/23/2020 Active Ascorbic Acid (VITAMIN C) 250 MG tablet Take 500 mg by mouth daily. 0 Active sumatriptan (Imitrex) 50 MG tablet Take 1 tablet by mouth as needed for Migraine. Can repeat once 2 hours later. Not to exceed 2 tabs/24 hrs 9 tablet 2 02/27/2021 Active atorvastatin (Lipitor) 80 MG tabletIndications:Ch est pain, unspecified type Take 1 tablet by mouth daily. 90 tablet 1 03/20/2021 Active metoprolol (LOPRESSOR) 50 MG tablet Take 1 tablet by mouth 2 times daily. 180 tablet 1 03/20/2021 Active aspirin (Aspirin 81) 81 MG EC tabletIndications:Ch est pain, unspecified type Take 1 tablet by mouth daily. 90 tablet 3 03/20/2021 Active amlodipine (NORVASC) 5 MG tablet Take 5 mg by mouth daily. 0 Active hydrALAZINE (APRESOLINE) 100 MG tablet Take 1 Tablet by mouth daily. 0 Active Active Problems Problem Noted Date Coronary artery disease 11/29/2020 Overview: Coronary artery bypass grafting with FELDMAN-mid LAD, [...] this time. No change in therapy recommended S/P CABG x 3 11/23/2020 Chest pain 10/24/2020 Last Assessment & Plan: Blaine Stevens is [...] and the less than 1% risk for ID, stroke or . He agrees to proceed with angiogram. We will also start him on isosorbide 30mg daily, aspirin 81mg daily and atorvastatin 80mg daily. He is already on metoprolol. Patient was also given a prescription for sublingual nitroglycerin and given verbal instructions on how to use appropriately. I will see him in follow up after angiogram. History of angioedema 10/06/2020 COVID-19 virus detected 02/02/2020 Decreased exercise tolerance 04/22/2019 Dyspnea on exertion 04/22/2019 Family history of cerebral aneurysm 06/19 Idiopathic urticaria 02/15/2015 Angioedema 02/15/2015 Hypertension 02/15/2015 Last Assessment & Plan: BP is well controlled at this point. No changes to medical therapies. Vitamin B12 deficiency 02/15/2015 Coronary artery calcification seen on CA T scan Last Assessment & Plan: Patient status post multivessel coronary bypass with atypical chest discomfort is musculoskeletal nature risk factors and good control. Back to work without limitations at this time he is off Plavix postoperatively and is doing well no evidence of congestive heart failure no arrhythmias and no angina. Continue present medical therapy and risk factor modification Hyperlipidemia Last Assessment & Plan: Patient's last LDL cholesterol was 66. This is at goal. Continue with statin as prescribed. Resolved Problems Problem Noted Date Resolved Date Dyslipidemia 08/18/2018 02/27/2021 Immunizations Name Administration Dates Next Due Tdap 06/30/2016 Family History Medical History Relation Name Comments Hypertension Brother 1 cva, aneurysm Cerebral Aneurysm Brother 2 Hypertension Father cad, d ue to cardiac issues. ID Father Cerebral Aneurysm Father's side grandmoth er Hypertension Mother seasonal allergies Mother Relation Name Status Comments Brother 1 Brother 2 Father Father's side Mother Social History Tobacco Use Types Packs/Day Years Used Date Smoking Tobacco: Former Cigarettes 0.5 Q uit: 2007 Smokeless Tobacco: Never Tobacco Cessation:Counseling Given: Not Answered Alcohol Use Standard Drinks/Week Comments Yes 0 [...] Assigned at Date Recorded Not on file Last Filed Vital Signs Vital Sign Reading Time Taken Comments Blood Pressure 122/70 07/08/2024 8:45 AM EDT Pulse 73 07/08/2024 8:45 AM EDT Temperature 36.4 ??C (97.5 ??F) 02/27/2021 2:42 PM ED T Respiratory Rate 16 02/27/2021 2:42 PM EDT Oxygen Saturation 93% 07/08/2024 8:45 AM EDT Inhaled Oxygen Concentration - - Weight 108.4 kg (239 lb) 07/08/2024 8:45 AM EDT Height 175.3 cm (5' 9 ) 07/08/2024 8:45 AM EDT Body Mass Index 35.29 07/08/2024 8:45 AM EDT Plan of Treatment Health Maintenance Due Date Last Done Comments Covid-19 Vaccine (#1) 1960 SHINGLES VACCINE (1 of 2) 2010 INFLUENZA (#1) 2024 07/27/2017 (Refused) BMI CHECK/ADVISE 10/19/2024 02/27/2021, 02/2021, 10/01/2020, Additional history exists PNEUMOCOCCAL VACCINE FOR HIG H RISK PATIENTS (#1) 2025 CHOLESTEROL SCREENING 02/28/2026 02/28/2021 , 08/20/2020, 03/23/2020, Additional history exists DTAP/TDAP/TD (2 - Td or Tdap) 06/30/2026 06/30/2016 COLON CANCER SCREENING 08/17/2027 08/17/2017 HEPATITIS C SCREENING Completed 06/30/2016 Care Teams Jig Operator Relationship Specialty Start Date End Date Yanely Mcgraw MD [address] [place] [address] [address] [place] [address] PCP - General Internal Medicine 06/28/21 Jose Ozuna MD [address] [place] [address] [address] [place] [address] Network Programmer Cardiovascular Disease 10/15/20 Gerri Arriaza NP [address] [place] [address] [address] [place], [place] [phone] Nurse Practitioner Cardiology 10/15/20
--- OUTSIDE RECORDS SUMMARY | 2024-12-06 12:59 | XMS_ITS | Encounter Summary ---
Author Organization [facility] Address [address] [place] [address] Care Team Providers Care Special Warfare Boat Operator Name Role Phone Carina Rush DO Primary Care Pro vider Unavailable Carina Rush DO Unavailable Unavailable Jose Ozuna MD Unavailable [phone] Gerri Arriaza NP Unavailable [phone] Yanely Mcgraw MD Primary Care Provider Unavaila ble Encounter Details Date Type Department Care Team Description 01/08/2015 Orders Only Adult Medicine [address] [address] Carina Rush DO HTN (hypertension) (Primary Dx) Social History Tobacco Use Types Packs/Day Years [...] as of this encounter Visit Diagnoses Diagnosis HTN (hypertension)- Primary Unspecified essential hypertension documented in this encounter Care Teams Special Warfare Boat Operator Relationship Specialty Start Date End Date Carina Rush DO PCP - General Internal Medicine 10/18/14 06/27/21 Yanely Mcgraw MD [address] [place] [address] [address] [place] [address] PCP - General Internal Medicine 06/28/21 Carina Rush DO Internal Medicine 04/06/14 07/06/24 Jose Ozuna MD [address] [place] [address] [address] [place] [address] Vocational School Teacher Cardiovascular Disease 10/15/20 Gerri Arriaza NP [address] [place] [address] [address] [place] [address] Nurse Practitioner Cardiology 10/15/20 documented as of this encounter
--- OUTSIDE RECORDS SUMMARY | 2024-12-06 12:59 | XMS_ITS | Encounter Summary ---
Author Organization [facility] Address [address] [place] [address] Care Team Providers Care Care Coordinator Name Role Phone Carina Rush DO Primary Care Pro vider Unavailable Carina Rush DO Unavailable Unavailable Jose Ozuna MD Unavailable [phone] Gerri Arriaza NP Unavailable [phone] Yanely Mcgraw MD Primary Care Provider Unavaila ble Reason for Visit * Reason Onset Date Comments APPOINTMENT 01/10/2020 Encounter Details Date Type Department Care Team Description 01/10/2020 Telephone Adult Medicine [address] [address] Carina Rush DO APPOINTMENT Social History Tobacco Use Types Packs/Day Years [...] encounter Miscellaneous Notes * Telephone Encounter - Karmen White M.A. - 01/10/2020 9:58 AM EDT Left message for patient to return call. Please have patient reschedule b12 for 1 month documented in this encounter Plan of Treatment Not on file documented as of this encounter Visit Diagnoses Not on filedocumented in this encounter Care Teams Care Coordinator Relationship Specialty Start Date End Date Carina Rush DO PCP - General Internal Medicine 10/18/14 06/27/21 Yanely Mcgraw MD [address] [place] [address] [place] [address] PCP - General Internal Medicine 06/28/21 Carina Rush DO Internal Medicine 04/06/14 07/06/24 Jose Ozuna MD [address] [place] [address] [address] [place] [address] Business Associate Cardiovascular Disease 10/15/20 Gerri Arriaza NP [address] [place] [address] [address] [place] [address] Nurse Practitioner Cardiology 10/15/20 documented as of this encounter
--- OUTSIDE RECORDS SUMMARY | 2024-12-06 12:59 | XMS_ITS | Clinical Summary ---
Author Organization [facility] Address [address] [address] Care Team Providers Care Associate Business Analyst Name Role Phone Unavailable Primary Care Provider [...] patient's age to complete this topic Insurance [facility]
--- OUTSIDE RECORDS SUMMARY | 2024-12-06 13:00 | XMS_ITS | Encounter Summary ---
Author Organization [facility] Address [address] [place] [address] Care Team Providers Care Aboriginal Ceremonial Celebrant Name Role Phone Carina Rush DO Primary Care Pro vider Unavailable Carina Rush DO Unavailable Unavailable Jose Ozuna MD Unavailable [phone] Gerri Arriaza NP Unavailable [phone] Yanely Mcgraw MD Primary Care Provider Unavaila ble Reason for Referral * Radiology Services (Routine) - Closed Specialty Diagnoses / Procedures Referred By Josef hernandez Referred To Contact Radiology Diagnoses Family history of cerebral aneurysm Procedures MRI OF BRAIN AND FURTHER SEQUENCES W/WO CON Carina Rush DO Mri/[address] [address] Referral ID Status Reason Start Date Expiration Date V isits Requested Visits Authorized NO AUTH REQUIRED Closed 09/25/2016 09/25/2017 1 1 Encounter Details Date Type Department Care Team Description 08/22/2016 Orders Only Adult Medicine [address] [address] Carina Rush DO Family history of cerebral aneurysm (Primary Dx) Social History Tobacco Use Types [...] on file documented as of this encounter Results * MRI OF BRAIN AND FURTHER SEQUENCES W/WO CON (09/29/2016 9:13 AM EST) 10/02/2016 11:0 9 AM EST Narrative [place] OTHER EXTERNAL - 10/02/2016 11:27 AM EST MRI of the brain with intravenous contrast. History abnormal MRA. Examination was performed on 1.5 Priya magnet with administration of 10 mL of Gadavist. Prior MRA obtained on 07/14/2016 was reviewed. There is no evidence of midline shift, extra or intra-axial blood the fluid collections. There is no visible masses or mass effect in the brain and cerebellum. There is area of forearm gliosis in the left inferior cerebellum probably due to old infarction. There is no focal areas of restricted diffusion or abnormal enhancing lesions in the brain and cerebellum. There are bilateral prominent perivascular spaces. There is no evidence of focal AVM. Ventricular system is symmetric and normal in size. There is minimal mucosal thickening in the maxillary sinuses. 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 Unusually prominent perivascular spaces of uncertain significance. No evidence of AVM. Procedure Note Sharon Claudio MD - 10/02/2016 MRI of the brain with intravenous contrast. History abnormal MRA. Examination was performed on 1.5 Priya magnet with administration of 10 mLof Gadavist. Prior MRA obtained on 07/14/2016 was reviewed. There is no evidence of midline shift, extra or intra-axial blood thefluid collections. There is no visible masses or mass effect in the brain and cerebellum. There isarea of forearm gliosis in the left inferior cerebellum probably due to old infarction.There is no focal areas of restricted diffusion or abnormal enhancing lesions in the brain andcerebellum. There are bilateral prominent perivascular spaces. There is no evidence of focalAVM. Ventricular system is symmetric and normal in size. There is minimal mucosal thickening inthe maxillary sinuses. CONCLUSIONS: Findings suggestive of old infarction in the inferior leftcerebellum. Unusually prominent perivascular spaces of uncertain significance. No evidence ofAVM. Carina Arcos DO MRI [facility] OTHER EXTERNAL documented in this encounter Visit Diagnoses Diagnosis Family history of cerebral aneurysm- Primary Family history of other cardiovascular diseases Family history of cerebral aneurysm Family history of other cardiovascular diseases documented in this encounter Care Teams Aboriginal Ceremonial Celebrant Relationship Specialty Start Date End Date Carina Rush DO PCP - General Internal Medicine 10/18/14 06/27/21 Yanely Mcgraw MD [address] [place] [address] [address] [place] [address] PCP - General Internal Medicine 06/28/21 Carina Rush DO Internal Medicine 04/06/14 07/06/24 Jose Ozuna MD [address] [place] [address] [address] [place] [address] Social Media Manager Cardiovascular Disease 10/15/20 Gerri Arriaza NP [address] [place] [address] [address] [place] [address] Nurse Practitioner Cardiology 10/15/20 documented as of this encounter
--- OUTSIDE RECORDS SUMMARY | 2024-12-06 13:00 | XMS_ITS | Encounter Summary ---
Author Organization [facility] Address [address] [place] [address] Care Team Providers Care Nozzle Operator Name Role Phone Carina Rush DO Primary Care Pro vider Unavailable Carina Rush DO Unavailable Unavailable Jose Ozuna MD Unavailable [phone] Gerri Arriaza NP Unavailable [phone] Yanely Mcgraw MD Primary Care Provider Unavaila ble Encounter Details Date Type Department Care Team Description 11/03/2020 Hospital Medical Records [address] [place] [address] Vitaly Connelly MD Social History Tobacco Use Types Packs/Day Years Used Date Smoking Tobacco: Former Cigarettes 0.5 Q uit: 2008 Smokeless Tobacco: Never Alcohol Use Standard Drinks/Week [...] have Coronavirus / COVID-19? No / Unsure 10/24/2020 11:01 AM EST documented as of this encounter Plan of Treatment Not on file documented as of this encounter Visit Diagnoses Not on filedocumented in this encounter Care Teams Nozzle Operator Relationship Specialty Start Date End Date Carina Rush DO PCP - General Internal Medicine 10/18/14 06/27/21 Yanely Mcgraw MD [address] [place] [address] [address] [place] [address] PCP - General Internal Medicine 06/28/21 Carina Rush DO Internal Medicine 04/06/14 07/06/24 Jose Ozuna MD [address] [place] [address] [address] [place] [address] Service Planner Cardiovascular Disease 10/15/20 Gerri Arriaza NP [address] [place] [address] [address] [place] [address] Nurse Practitioner Cardiology 10/15/20 documented as of this encounter
--- OUTSIDE RECORDS SUMMARY | 2024-12-06 13:00 | XMS_ITS | Encounter Summary ---
Author Organization [facility] Address [address] [place] [address] Care Team Providers Care Car Varnisher Name Role Phone Carina Rush DO Primary Care Pro vider Unavailable Carina Rush DO Unavailable Unavailable Jose Ozuna MD Unavailable [phone] Gerri Arriaza NP Unavailable [phone] Yanely Mcgraw MD Primary Care Provider Unavaila ble Encounter Details Date Type Department Care Team Description 11/22/2020 Sole Leather Cutting Machine Operator Report Medical Records [address] [place] [address] Ale Machuca Social History Tobacco Use Types Packs/Day Years [...] have Coronavirus / COVID-19? No / Unsure 11/23/2020 10:21 AM EST documented as of this encounter Plan of Treatment Not on file documented as of this encounter Visit Diagnoses Not on filedocumented in this encounter Care Teams Car Varnisher Relationship Specialty Start Date End Date Carina Rush DO PCP - General Internal Medicine 10/18/14 06/27/21 Yanely Mcgraw MD [address] [place] [address] [address] [place] [address] PCP - General Internal Medicine 06/28/21 Carina Rush DO Internal Medicine 04/06/14 07/06/24 Jose Ozuna MD [address] [place] [address] [address] [place] [address] Features Editor Cardiovascular Disease 10/15/20 Gerri Arriaza NP [address] [place] [address] [address] [place] [address] Nurse Practitioner Cardiology 10/15/20 documented as of this encounter
--- OUTSIDE RECORDS SUMMARY | 2024-12-06 13:00 | XMS_ITS | Encounter Summary ---
Author Organization [facility] Address [address] [place] [address] Care Team Providers Care Diet Attendant Name Role Phone Carina Rush DO Primary Care Pro vider Unavailable Carina Rush DO Unavailable Unavailable Jose Ozuna MD Unavailable [phone] Gerri Arriaza NP Unavailable Yanely Mcgraw MD Primary Care Provider Unavaila ble Reason for Visit * Reason Onset Date Comments Faxed Order 12/12/2020 Encounter Details Date Type Department Care Team Description 12/12/2020 Telephone Adult Medicine [address] [address] Carina Rush DO Faxed Order Social History Tobacco Use Types Packs/Day Years [...] have Coronavirus / COVID-19? No / Unsure 12/12/2020 9:19 AM EST documented as of this encounter Miscellaneous Notes * Telephone Encounter - Darcy Carrillo - 12/12/2020 10:38 AM EST LISA PAZ IS FAXING ORDERS TO BE SIGN AND FAX BACK TO [phone]. documented in this encounter Plan of Treatment Not on file documented as of this encounter Visit Diagnoses Not on filedocumented in this encounter Care Teams Diet Attendant Relationship Specialty Start Date End Date Carina Rush DO PCP - General Internal Medicine 10/18/14 06/27/21 Yanely Mcgraw MD [address] [place] [address] [place] [address] PCP - General Internal Medicine 06/28/21 Carina Rush DO Internal Medicine 04/06/14 07/06/24 Jose Ozuna MD [address] [place] [address] [address] [place] [address] Drug And Alcohol Treatment Specialist Cardiovascular Disease 10/15/20 Gerri Arriaza NP [address] [place] [address] [address] [place] [address] Nurse Practitioner Cardiology 10/15/20 documented as of this encounter
--- OUTSIDE RECORDS SUMMARY | 2024-12-06 13:00 | XMS_ITS | Encounter Summary ---
Author Organization [facility] Address [address] [place] [address] Care Team Providers Care Buying Agent Name Role Phone Carina Rush DO Primary Care Pro vider Unavailable Carina Rush DO Unavailable Unavailable Jose Ozuna MD Unavailable [phone] Gerri Arriaza NP Unavailable [phone] Yanely Mcgraw MD Primary Care Provider Unavaila ble Reason for Visit * Reason Onset Date Comments Gi Dvd/web Review 06/01/2017 Encounter Details Date Type Department Care Team Description 06/01/2017 Telephone Gastroenterology - [place] [address] [place] [address] [address] [place], [place] [id number] Gi Dvd/web Review Social History Tobacco Use Types Packs/Day Years [...] encounter Miscellaneous Notes * Telephone Encounter - Hyacinth Beaulieu - 06/01/2017 4:48 PM EDT Patient previewed instructional information for screening colonoscopy. Visit Type: Colonoscopy: An Overview via DVD Presentation by: DVD reviewed by patient--Patient confirms viewing of DVD in its entirety. NO Was the patient informed that this is part of their informed consent? YES DVD topics include: Colonoscopy Procedure Monitored Sedation Informed Consent Screeniong Colonoscopy Waiver Bowel Preparation: Go Lytely --prescription given Diet Preparation Special Education Educational Assistant for transportation home. Insurance coverage--Patient instructed to call insurance company to verify coverage. Medication List: Current Outpatient Prescriptions Medication Sig Dispense Refill ??? hydrochlorothiazide (MICROZIDE) 12.5 MG capsule TAKE ONE CAPSULE BY MOUTH EVERY DAY 30 Cap 5 ??? amlodipine (NORVASC) 5 MG tablet Take 1 Tab by mouth daily. 90 Tab 1 ??? hydrochlorothiazide (HYDRODIURIL) 25 MG tablet Take 1 Tab by mouth daily. 90 Tab 1 ??? metoprolol (LOPRESSOR) 100 MG tablet Take 1 Tab by mouth 2 times daily. 180 Tab 1 No current facility-administered medications for this visit. Med List reviewed: YES Medication changes needed: no Preferred Pharmacy entered yes [facility] Insurance information reviewed and verified: yes Payor: HARINI/PPO POS / Plan: PPO $10 COLON [id number]/ Product Type: PPO [id number] Patient was advised that they must call us if there are any changes in their insurance coverage prior to the procedure. yes Has the patient had a joint replacement in the last 6 months: NO Has the patient had a cardiac sent placed in the last 12 months: NO Has the patient had any open heart/bypass surgery in the last 4 months: NO Does the patient have an implanted defibrillator or pacemaker: NO Does the patient have any other implanted electronic devices: NO Is the patient taking any blood thinners : NO Patients weight or medical condition limits mobility: NO Waiver discussed--patient instructed to call insurance company to verify coverage:: YES Colonoscopy appointment booked: YES Patient information packet mailed: YES documented in this encounter Plan of Treatment Not on file documented as of this encounter Visit Diagnoses Not on filedocumented in this encounter Care Teams Buying Agent Relationship Specialty Start Date End Date Carina Rush DO PCP - General Internal Medicine 10/18/14 06/27/21 Yanely Mcgraw MD [address] [place] [address] [address] [place] [address] PCP - General Internal Medicine 06/28/21 Carina Rush DO Internal Medicine 04/06/14 07/06/24 Jose Ozuna MD [address] [place] [address] [address] [place] [address] Art Editor Cardiovascular Disease 10/15/20 Gerri Arriaza NP [address] [place] [address] [address] [place] [address] Nurse Practitioner Cardiology 10/15/20 documented as of this encounter
--- OUTSIDE RECORDS SUMMARY | 2024-12-06 13:00 | XMS_ITS | Encounter Summary ---
Author Organization [facility] Address [address] [place] [address] Care Team Providers Care Vending Technician Name Role Phone Carina Rush DO Primary Care Pro vider Unavailable Carina Rush DO Unavailable Unavailable Jose Ozuna MD Unavailable [phone] Gerri Arriaza NP Unavailable [phone] Yanely Mcgraw MD Primary Care Provider Unavaila ble Encounter Details Date Type Department Care Team Description 10/24/2020 Backbreaker Report Medical Records [address] [place] [address] [facility] Social History Tobacco Use Types Packs/Day Years [...] on filedocumented in this encounter Care Teams Vending Technician Relationship Specialty Start Date End Date Carina Rush DO PCP - General Internal Medicine 10/18/14 06/27/21 Yanely Mcgraw MD [address] [place] [address] [address]IVE [address] [place] [address] PCP - General Internal Medicine 06/28/21 Carina Rush DO Internal Medicine 04/06/14 07/06/24 Jose Ozuna MD [address] [place] [address] [address] [place] [address] Can Patcher Cardiovascular Disease 10/15/20 Gerri Arriaza NP [address] [place] [address] [address]IVE [address] [place] [address] Nurse Practitioner Cardiology 10/15/20 documented as of this encounter
--- OUTSIDE RECORDS SUMMARY | 2024-12-06 13:00 | XMS_ITS | Encounter Summary ---
Author Organization [facility] Address [address] [place] [address] Care Team Providers Care Airplane Engineer Name Role Phone Carina Rush DO Primary Care Pro vider Unavailable Carina Rush DO Unavailable Unavailable Jsoe Ozuna MD Unavailable [phone] Gerri Arriaza NP Unavailable [phone] Yanely Mcgraw MD Primary Care Provider Unavaila ble Encounter Details Date Type Department Care Team Description 11/01/2020 Hospital Medical Records [address] [place] [address] Social History Tobacco Use Types Packs/Day Years [...] on filedocumented in this encounter Care Teams Airplane Engineer Relationship Specialty Start Date End Date Carina Rush DO PCP - General Internal Medicine 10/18/14 06/27/21 Yanely Mcgraw MD [address] [place] [address] [address] [place] [address] PCP - General Internal Medicine 06/28/21 Carina Rush DO Internal Medicine 04/06/14 07/06/24 Jose Ozuna MD [address] [place] [address] [address] [place] [address] Antenna Rigger Cardiovascular Disease 10/15/20 Gerri Arriaza NP [address] [place] [address] [address] [place] [address] Nurse Practitioner Cardiology 10/15/20 documented as of this encounter
--- OUTSIDE RECORDS SUMMARY | 2024-12-06 13:00 | XMS_ITS | Encounter Summary ---
Author Organization [facility] Address [address] [place] [address] Care Team Providers Care Graphic Artist Name Role Phone Yanely Mcgraw MD Primary Care Provider [phone] Reason for Visit * Reason Onset Date Comments Referral 11/09/2024 Sleep Medicine Encounter Details Date Type Department Care Team (Late st Contact Info) Description 11/09/2024 Telephone [facility] Cardiology [address] [place] [address] Jose Ozuna MD [address] [place] [address] [address] [place] [address] Referral (Sleep Medicine) Social History Tobacco Use [...] on filedocumented in this encounter Care Teams Graphic Artist Relationship Specialty Start Date End Date Yanely Mcgraw MD [address] [place] [address] PCP - General Internal Medicine 10/03/24 documented as of this encounter
--- OUTSIDE RECORDS SUMMARY | 2024-12-06 13:00 | XMS_ITS | Encounter Summary ---
Author Organization [facility] Address [address] [place] [address] Care Team Providers Care Cvor Nurse Name Role Phone Carina Rush DO Primary Care Pro vider Unavailable Carina Rush DO Unavailable Unavailable Jose Ozuna MD Unavailable [phone] Gerri Arriaza NP Unavailable [phone] Yanely Mcgraw MD Primary Care Provider Unavaila ble Reason for Visit * Reason Onset Date Comments Medication 06/01/2017 Encounter Details Date Type Department Care Team Description 06/01/2017 Telephone Gastroenterology - [address] [address] Guilherme Pritchard MD Medication Social History Tobacco Use Types Packs/Day Years [...] Telephone Encounter - Hyacinth Beaulieu - 06/01/2017 4:58 PM EDT Patient has scheduled a procedure, please prescribe prep in Dr Pritchard's absence. Thank you! documented in this encounter Plan of Treatment Not on file documented as of this encounter Visit Diagnoses Not on filedocumented in this encounter Care Teams Cvor Nurse Relationship Specialty Start Date End Date Carina Rush DO PCP - General Internal Medicine 10/18/14 06/27/21 Yanely Mcgraw MD [address] [place] [address] [address] [place] [address] PCP - General Internal Medicine 06/28/21 Carina Rush DO Internal Medicine 04/06/14 07/06/24 Jose Ozuna MD [address] [place] [address] [address] [place] [address] Associate Business Analyst Cardiovascular Disease 10/15/20 Gerri Arriaza NP [address] [place] [address] [address] [place] [address] Nurse Practitioner Cardiology 10/15/20 documented as of this encounter
--- OUTSIDE RECORDS SUMMARY | 2024-12-06 13:00 | XMS_ITS | Encounter Summary ---
Author Organization [facility] Address [address] [place] [address] Care Team Providers Care Synthetic Plasterer Name Role Phone Carina Rush DO Primary Care Pro vider Unavailable Carina Rush DO Unavailable Unavailable Jose Ozuna MD Unavailable [phone] Gerri Arriaza NP Unavailable [phone] Yanely Mcgraw MD Primary Care Provider Unavaila ble Encounter Details Date Type Department Care Team Description 07/09/2016 Orders Only Adult Medicine [address] [address] Carina Rush DO B12 deficiency (Primary Dx) Social History Tobacco Use Types [...] as of this encounter Visit Diagnoses Diagnosis B12 deficiency- Primary Other B-complex deficiencies documented in this encounter Care Teams Synthetic Plasterer Relationship Specialty Start Date End Date Carina Rush DO PCP - General Internal Medicine 10/18/14 06/27/21 Yanely Mcgraw MD [address] [place] [address] [address] [place] [address] PCP - General Internal Medicine 06/28/21 Carina Rush DO Internal Medicine 04/06/14 07/06/24 Jose Ozuna MD [address] [place] [address] [address] [place] [address] Architecture Technician Cardiovascular Disease 10/15/20 Gerri Arriaza NP [address] [place] [address] [address] [place] [address] Nurse Practitioner Cardiology 10/15/20 documented as of this encounter
--- OUTSIDE RECORDS SUMMARY | 2024-12-06 13:00 | XMS_ITS | Encounter Summary ---
Author Organization [facility] Address [address] [place] [address] Care Team Providers Care Mothercraft Nurse Name Role Phone Carina Rush DO Primary Care Pro vider Unavailable Carina Rush DO Unavailable Unavailable Jose Ozuna MD Unavailable [phone] Gerri Arriaza NP Unavailable [phone] Yanely Mcgraw MD Primary Care Provider Unavaila ble Encounter Details Date Type Department Care Team Description 10/25/2020 Hospital Medical Records [address] [place] [address] Social History Tobacco Use Types Packs/Day Years [...] Name Priority Date/Time Associated Diagnosis Comments OUTSIDE LAB Routine 11/06/2020 OUTSIDE PLAIN FILM Routine 11/03/2020 OUTSIDE EKG Routine 11/02/2020 OUTSIDE VASCULAR STUDY Routine 10/29/2020 OUTSIDE ECHO Routine 10/28/2020 OUTSIDE LAB Routine 10/27/2020 OUTSIDE EKG Routine 10/25/2020 OUTSIDE PLAIN FILM Routine 10/25/2020 documented in this encounter Results * OUTSIDE LAB (11/06/2020) Provider Abstract LAB * OUTSIDE PLAIN FILM (11/03/2020) Provider Abstract RADIOLOGY * OUTSIDE EKG (11/02/2020) Provider Abstract CARDIOLOGY * OUTSIDE VASCULAR STUDY (10/29/2020) Provider Abstract CARDIOLOGY * OUTSIDE ECHO (10/28/2020) Provider Abstract CARDIOLOGY * OUTSIDE LAB (10/27/2020) Provider Abstract LAB * OUTSIDE PLAIN FILM (10/25/2020) Provider Abstract RADIOLOGY * OUTSIDE EKG (10/25/2020) Provider Abstract CARDIOLOGY documented in this encounter Visit Diagnoses Not on filedocumented in this encounter Care Teams Mothercraft Nurse Relationship Specialty Start Date End Date Carina Rush DO PCP - General Internal Medicine 10/18/14 06/27/21 Yanely Mcgraw MD [address] [place] [address] [address] [place] [address] PCP - General Internal Medicine 06/28/21 Carina Rush, Internal Medicine 04/06/14 07/06/24 Jose Ozuna MD [address] [place] [address] [address] [place] [address] Warp Knitter Cardiovascular Disease 10/15/20 Gerri Arriaza NP [address] [place] [address] [address] [place] [address] Nurse Practitioner Cardiology 10/15/20 documented as of this encounter
--- OUTSIDE RECORDS SUMMARY | 2024-12-06 13:00 | XMS_ITS | Encounter Summary ---
Author Organization [facility] Address [address] [place] [address] Care Team Providers Care Caterpillar Driver Name Role Phone Carina Rush DO Primary Care Pro vider Unavailable Carina Rush DO Unavailable Unavailable Jose Ozuna MD Unavailable [phone] Gerri Arriaza NP Unavailable [phone] Yanely Mcgraw MD Primary Care Provider Unavaila ble Reason for Visit * Reason Onset Date Comments Hospital Procedure 10/26/2020 L Heart Cath/ PCI Encounter Details Date Type Department Care Team Description 10/26/2020 Telephone Cardio [facility] [address] [place] [address] Drive [address] [place] [address] Gerri Arriaza NP [address] [place] [address] Dr [address] [place] [address] Hospital Procedure (L Heart Cath/PCI) Social History Tobacco Use Types Packs/Day Years [...] encounter Miscellaneous Notes * Telephone Encounter - Sue Adam - 10/26/2020 10:17 AM EST Pt has been scheduled for L Heart Cath/PCI on 11/01/20 @730am [place] [place]. Collins. Covid testing TBD 10/29/2020 @115pm @[address] [place] [address] st. S/w Liv pt's daughter all appt info given to her. All pre-op testing has been done, confirmed and faxed with H*P to geophysical laboratory supervisor on 10/26/20. Packet mailed to pt on 10/24/20. No Auth req. 3 to 4 week f/u has been scehduled w/[facility]. documented in this encounter Plan of Treatment Not on file documented as of this encounter Visit Diagnoses Not on filedocumented in this encounter Care Teams Caterpillar Driver Relationship Specialty Start Date End Date Carina Rush DO PCP - General Internal Medicine 10/18/14 06/27/21 Yanely Mcgraw MD [address] [place] [address] DR[address] [place] [address] PCP - General Internal Medicine 06/28/21 Carina Rush DO Internal Medicine 04/06/14 07/06/24 Jose Ozuna MD [address] [place] [address] DRIVE [address] [place] [address] Hand Surgeon Cardiovascular Disease 10/15/20 Gerri Arriaza, ALMA 2 [facility] [address] [place] [address] Nurse Practitioner Cardiology 10/15/20 documented as of this encounter
--- OUTSIDE RECORDS SUMMARY | 2024-12-06 13:00 | XMS_ITS | Encounter Summary ---
Author Organization [facility] Address [address] [place] [address] Care Team Providers Care Regulator Mechanic Name Role Phone Carina Rush DO Primary Care Pro vider Unavailable Carina Rush DO Unavailable Unavailable Jose Ozuna MD Unavailable [phone] Gerri Arriaza NP Unavailable [phone] Yanely Mcgraw MD Primary Care Provider Unavaila ble Encounter Details Date Type Department Care Team Description 10/26/2020 Hospital Medical Records [address] [place] [address] Akash Collins MD [address] [facility] [address] [place] [address] Social History Tobacco Use Types Packs/Day Years [...] on filedocumented in this encounter Care Teams Regulator Mechanic Relationship Specialty Start Date End Date Carina Rush DO PCP - General Internal Medicine 10/18/14 06/27/21 Yanely Mcgraw MD [address] [place] [address] [place] [address] PCP - General Internal Medicine 06/28/21 Carina Rush DO Internal Medicine 04/06/14 07/06/24 Jose Ozuna MD [address] [place] [address] [address] [place] [address] Coat Ironer Hand Cardiovascular Disease 10/15/20 Gerri Arriaza NP [address] [place] [address] [address] [place] [address] Nurse Practitioner Cardiology 10/15/20 documented as of this encounter
--- OUTSIDE RECORDS SUMMARY | 2024-12-06 13:00 | XMS_ITS | Encounter Summary ---
Author Organization [facility] Address [address] [place] [address] Care Team Providers Care Mechanical Fitter Name Role Phone Carina Rush DO Primary Care Pro vider Unavailable Carina Rush DO Unavailable Unavailable Jose Ozuna MD Unavailable [phone] Gerri Arriaza NP Unavailable [phone] Yanely Mcgraw MD Primary Care Provider Unavaila ble Reason for Visit * Reason Onset Date Comments Faxed Order 11/12/2020 Encounter Details Date Type Department Care Team Description 11/12/2020 Telephone Adult Medicine [address] [address] Carina Rush DO Faxed Order Social History [...] encounter Miscellaneous Notes * Telephone Encounter - Pat Parikh - 11/12/2020 2:12 PM EST Faxed order received from [facility]. Please sign, date and fax to [phone]. documented in this encounter Plan of Treatment Not on file documented as of this encounter Visit Diagnoses Not on filedocumented in this encounter Care Teams Mechanical Fitter Relationship Specialty Start Date End Date Carina Rush DO PCP - General Internal Medicine 10/18/14 06/27/21 Yanely Mcgraw MD [address] [place] [address] [place] [address] PCP - General Internal Medicine 06/28/21 Carina Rush DO Internal Medicine 04/06/14 07/06/24 Jose Ozuna MD [address] [place] [address] [address] [place] [address] String Top Sealer Cardiovascular Disease 10/15/20 Gerri Arriaza NP [address] [place] [address] DR[address] [place] [address] Nurse Practitioner Cardiology 10/15/20 documented as of this encounter
--- OUTSIDE RECORDS SUMMARY | 2024-12-06 13:00 | XMS_ITS | Encounter Summary ---
Author Organization [facility] Address [address] [place] [address] Care Team Providers Care Lead Android Developer Name Role Phone Carina Rush DO Primary Care Pro vider Unavailable Carina Rush DO Unavailable Unavailable Jose Ozuna MD Unavailable [phone] Gerri Arriaza NP Unavailable [phone] Yanely Mcgraw MD Primary Care Provider Unavaila ble Encounter Details Date Type Department Care Team Description 11/26/2020 Computer Engineer Report Medical Records [address] [place] [id number] Abstract, Provider Social History Tobacco Use Types Packs/Day Years [...] on filedocumented in this encounter Care Teams Lead Android Developer Relationship Specialty Start Date End Date Carina Rush DO PCP - General Internal Medicine 10/18/14 06/27/21 Yanely Mcgraw MD [address] [place] [address] [address]IVE [address] [place] [address] PCP - General Internal Medicine 06/28/21 Carina Rush DO Internal Medicine 04/06/14 07/06/24 Jose Ozuna MD [address] [place] [address] [address] [place] [address] Care Consultant Cardiovascular Disease 10/15/20 Gerri Arriaza NP [address] [place] [address] DR[address] [place] [address] Nurse Practitioner Cardiology 10/15/20 documented as of this encounter
--- OUTSIDE RECORDS SUMMARY | 2024-12-06 13:00 | XMS_ITS | Encounter Summary ---
Author Organization [facility] Address [address] [place] [address] Care Team Providers Care Oracle Dba Name Role Phone Carina Rush DO Primary Care Pro vider Unavailable Carina Rush DO Unavailable Unavailable Jose Ozuna MD Unavailable [phone] Gerri Arriaza NP Unavailable [phone] Yanely Mcgraw MD Primary Care Provider Unavaila ble Encounter Details Date Type Department Care Team Description 10/06/2016 Atv Mechanic Report Medical Records [address] [place] [address] Niko Aceves MD Social History Tobacco Use Types Packs/Day [...] on filedocumented in this encounter Care Teams Oracle Dba Relationship Specialty Start Date End Date Carina Rush DO PCP - General Internal Medicine 10/18/14 06/27/21 Yanely Mcgraw MD [address] [place] [address] DR[address] [place] [address] PCP - General Internal Medicine 06/28/21 Carina Rush DO Internal Medicine 04/06/14 07/06/24 Jose Ozuna MD [address] [place] [address] [address] [place] [address] House Registry Rn Cardiovascular Disease 10/15/20 Gerri Arriaza NP [address] [place] [address] DR[address] [place] [address] Nurse Practitioner Cardiology 10/15/20 documented as of this encounter
--- OUTSIDE RECORDS SUMMARY | 2024-12-06 13:00 | XMS_ITS | Encounter Summary ---
Author Organization [facility] Address [address] [place] [address] Care Team Providers Care Clearance Rep Name Role Phone Carina Rush DO Primary Care Pro vider Unavailable Carina Rush DO Unavailable Unavailable Jose Ozuna MD Unavailable [phone] Gerri Arriaza NP Unavailable [phone] Yanely Mcgraw MD Primary Care Provider Unavaila ble Encounter Details Date Type Department Care Team Description 02/22/2021 Release of Information Medical Records [address] [place] [address] Abstract, Provider Social History Tobacco Use Types [...] have Coronavirus / COVID-19? No / Unsure 02/13/2021 1:01 PM EDT documented as of this encounter Plan of Treatment Not on file documented as of this encounter Visit Diagnoses Not on filedocumented in this encounter Care Teams Clearance Rep Relationship Specialty Start Date End Date Carina Rush DO PCP - General Internal Medicine 10/18/14 06/27/21 Yanely Mcgraw MD [address] [place] [address] DRIVE [address] [place] [address] PCP - General Internal Medicine 06/28/21 Carina Rush DO Internal Medicine 04/06/14 07/06/24 Jose Ozuna MD [address] [place] [address] [address] [place] [address] Grass Farm Laborer Cardiovascular Disease 10/15/20 Gerri Arriaza NP [address] [place] [address] DRIVE [address] [place] [address] Nurse Practitioner Cardiology 10/15/20 documented as of this encounter
--- OUTSIDE RECORDS SUMMARY | 2024-12-06 13:00 | XMS_ITS | Encounter Summary ---
Author Organization [facility] Address [address] [place] [address] Care Team Providers Care Director Aeronautics Commission Name Role Phone Carina Rush DO Primary Care Pro vider Unavailable Carina Rush DO Unavailable Unavailable Jose Ozuna MD Unavailable [phone] Gerri Arriaza NP Unavailable [phone] Yanely Mcgraw MD Primary Care Provider Unavaila ble Encounter Details Date Type Department Care Team Description 10/29/2020 Hospital Medical Records [address] [place] [address] Social History Tobacco Use Types Packs/Day Years [...] on filedocumented in this encounter Care Teams Director Aeronautics Commission Relationship Specialty Start Date End Date Carina Rush DO PCP - General Internal Medicine 10/18/14 06/27/21 Yanely Mcgraw MD [address] [place] [address] [address]IVE [address] [place] [address] PCP - General Internal Medicine 06/28/21 Carina Rush DO Internal Medicine 04/06/14 07/06/24 Jose Ozuna MD [address] [place] [address] [address] [place] [address] Press Room Supervisor Cardiovascular Disease 10/15/20 Gerri Arriaza NP [address] [place] [address] DRIVE [address] [place] [address] Nurse Practitioner Cardiology 10/15/20 documented as of this encounter
== END 2024-12-06 13:19 | disposition home or self-care (01) ==
LOC: HO.HMCC 11:50
PROVIDERS: PCP Internal Medicine; Visit Provider Internal Medicine
DX: N40.0 Benign prostatic hyperplasia without lower urinary tract symptoms (principal); Z00.00 Encounter for general adult medical examination without abnormal findings; I10 Essential (primary) hypertension; E78.5 Hyperlipidemia, unspecified

== ENCOUNTER → 2024-12-06 11:50 | Outpatient (BNVA) | payer BC, SELFPAY | PROVIDERS: PCP Internal Medicine; Visit Provider Internal Medicine | DX: Z00.00 Encounter for general adult medical examination without abnormal findings (principal); N40.0 Benign prostatic hyperplasia without lower urinary tract symptoms; I10 Essential (primary) hypertension; E78.5 Hyperlipidemia, unspecified; Z79.899 Other long term (current) drug therapy | CPT/HCPCS: 96127 ==

== ENCOUNTER 2024-12-26 08:29 | Outpatient (AMB) | payer BC, SELFPAY ==
--- OUTSIDE RECORDS SUMMARY | 2024-12-26 08:42 | XMS_ITS | Clinical Summary ---
Author Organization [address] [place] [address] Address [address] [place] [address] Phone Care Team Providers Care Director Of Corporate Sales Name Role Phone Yanely Mcgraw MD Primary Care Provider [phone] Allergies Active Allergy Reactions Criticality Noted Date [...] and the less than 1% risk for HI, stroke or . He agrees to proceed [...] Encounters Date Type Department Care Team Description 12/06/2024 Telephone [facility] Cardiology [place] [address] [place] [address] Jose Ozuna MD 11/09/[address] [place] [address] Jose Ozuna MD Referral (Sleep Medicine) 10/03/2024 9:00 AM EST Ancillary Procedure [facility] [address] [place] [phone] Coronary artery calcification seen on CAT scan from Last 3 Months Immunizations Name Administration Dates Next Due Tdap Tetanus diptheria acell ular pertussis (Boostrix; Adacel) 7yo and older 06/30/2016 Surgical History Surgery Date Site/Laterality Comments LEG SURGERY 2004 PROCEDURE: HISTORICAL LEG SURGERY COLONOSCOPY 08/17/2017 PROCEDURE: [...] Coronary artery calcification seen on CAT scan ANNUAL BMP BLOOD TEST Routine 02/28/2021 LIPID PANEL Routine 02/28/2021 COLONOSCOPY Routine 08/17/2017 HEPATITIS C SCREENING Routine 06/30/2016 from Last 3 Months or Most Recently Relevant to Health Maintenance Results * (ABNORMAL) TRANSTHORACIC ECHOCARDIOGRAM (TTE) COMPLETE (10/03/2024 9:57 AM EST) Left Atrium Minor [place] 6.4 cm CV PACS Left Atrium Major [place] 5.7 cm CV PACS LA Area Sys [...] Volume 77 mL CV PACS MV Deceleration [place] 3.7 m/s2 CV PACS E Wave Deceleration [...] Overall the study quality was adequate. Result [facility] Jose Ozuna MD CV ECHO PROCEDURES Final Resul t * Annual [facility] Blood Test (02/28/2021) [facility] Annual [facility] Blood Test Abstracted Result [facility] Historical Provider HEALTH MAINTENANCE Final Result * Lipid panel (02/28/2021) [facility] LDL/HDL Ratio 3 0 - 4 Triglycerides 85 0 - 150 mg/dL Cholesterol 130 0 - 200 mg/dL HDL 47 >=40 mg/dL LDL Cholesterol 66 0 - 100 mg/dL Blood Venous blood specimen / Unknown Result [facility] Historical Provider LAB BLOOD ORDERABLES Meghna l Result * Colonoscopy (08/17/2017) Colonoscopy No interpretation , abstracted Anatomical Region Laterality Modality Other Historical Provider HEALTH MAINTENANCE Final Result * Hepatitis C Screening (06/30/2016) Hepatitis C Screening Abstracted Historical Provider HEALTH MAINTENANCE Final Result from Last 3 Months or Most Recently Relevant to Health Maintenance Insurance [employer] [id number] [facility] Care Teams Director Of Corporate Sales Relationship Specialty Start Date End Date Yanely Mcgraw MD [address] [facility] [place] [address] PCP - General Internal Medicine 10/03/24
--- OUTSIDE RECORDS SUMMARY | 2024-12-26 08:42 | XMS_ITS | Encounter Summary ---
Author Organization [facility] Address [address] [facility] [address] [place] [address] Phone Care Team Providers Care Racquet Maker Name Role Phone Unavailable Primary Care Provider Unavailabl e Encounter Details Date Type Department Care Team (Late st Contact Info) Description 01/28/2021 Orders Only [facility] [address] [facility] [address] [place] [phone] Shabbir Menezes MD [address] [facility] [address] [place] [phone] Primary hypertension Social History Tobacco Use Types [...]
--- OUTSIDE RECORDS SUMMARY | 2024-12-26 08:42 | XMS_ITS | Clinical Summary ---
Author Organization [facility] Address [address] [address] Care Team Providers Care Sole Cutter Name Role Phone Unavailable Primary Care Provider [...] patient's age to complete this topic Insurance [facility]
--- OUTSIDE RECORDS SUMMARY | 2024-12-26 08:42 | XMS_ITS | Encounter Summary ---
Author Organization [facility] Address [address] [place] [address] Care Team Providers Care Recovery Collector Name Role Phone Yanely Mcgraw MD Primary Care Provider [phone] Encounter Details Date Type Department Care Team (Late st Contact Info) Description 12/06/2024 Telephone [facility] Cardiology [address] [place] [address] Jose Ouzna MD [address] [place] [address] [address] [place], [place] [id number] Social History Tobacco Use Types Packs/Day Years [...] as of this encounter Progress Notes * Venessa Wing - 12/07/2024 8:45 AM EST I called Blaine's daughter Liv at [phone] and left a voicemail asking her to call back so we my schedule a preop appointment for Blaine to see Gerri Arriaza. Please transfer her to me when she calls back. * Shay Correia - 12/06/2024 4:00 PM EST Pre Op Request Type Of Surgery: Colonoscopy and Endoscopy EKG Needed:Yes Date Of Surgery: N/A Performing Doctor: Dr Fisher Located at [facility] Name of Caller: Mica Phone number:[phone] Please call daughter to schedule. documented in this encounter Plan of Treatment Not on file documented as of this encounter Visit Diagnoses Not on filedocumented in this encounter Care Teams Recovery Collector Relationship Specialty Start Date End Date Yanely Mcgraw MD [address] [place] [address] PCP - General Internal Medicine 10/03/24 documented as of this encounter
--- NOTE | 2024-12-26 08:53 | AM.OFFVISNUR ---
Intake Visit Reasons: B-12 shot Intake Note: Pt arrived for monthly B-12 injection Technical Service Engineer Required: No Allergies THEODORE Inhibitors Adverse Reaction (Intermediate, Verified 12/26/24 08:53) cough losartan Adverse Reaction (Intermediate, Verified 12/26/24 08:53) Cough Medication List - Last Reconciled 12/26/24 by Lisa Graham RN albuterol sulfate 90 mcg/actuation 2 puffs inhalation Q6H PRN amlodipine 5 mg PO DAILY aspirin 81 mg PO DAILY atorvastatin 80 mg PO DAILY cyanocobalamin (vitamin B-12) 1,000 mcg subcut Q4W finasteride 5 mg PO DAILY hydralazine 100 mg PO BID metoprolol tartrate 50 mg PO BID tamsulosin (Flomax) 0.4 mg PO BEDTIME Office Meds cyanocobalamin (vitamin B-12) 1,000 mcg/mL injection solution Performing Provider: Yanely Mcgraw MD Performing Location: [facility] Administered by: Lisa Graham RN on 12/26/24 08:54 Dose Route Admin Location Dispensed Lot Number Expiration Date [facility] Acquisition Analyst 1,000 mcg IM right deltoid 1 mL [id number] 07/19/26 0845-9604-72 [facility] Comments: Pt supplied Assessment & Plan Assessment & Plan Orders: Orders AMB Vitamin B12 Injection Patient Supplied Today E53.8 - Deficiency of other specified B group vitamins Medications: New cyanocobalamin (vitamin B-12) 1,000 mcg IM ONCE 1 mL 0RF E53.8 - Deficiency of other specified B group vitamins Coding
== END 2024-12-26 08:35 | disposition home or self-care (01) ==
LOC: HO.HMCC 08:29
PROVIDERS: PCP Internal Medicine; Visit Provider Internal Medicine
DX: E53.8 Deficiency of other specified B group vitamins (principal)

== ENCOUNTER → 2024-12-26 08:29 | Outpatient (BNVA) | payer BC, SELFPAY | PROVIDERS: PCP Internal Medicine; Visit Provider Internal Medicine | DX: E53.8 Deficiency of other specified B group vitamins (principal) | CPT/HCPCS: 96372; J3420 ==

== ENCOUNTER 2025-01-26 10:24 | Outpatient (AMB) | payer BC, SELFPAY ==
--- NOTE | 2025-01-26 10:31 | AM.OFFVISNUR ---
Intake Visit Reasons: B12 Intake Note: Pt arrived for monthly B-12 injection Bi Tester Required: No Allergies THEODORE Inhibitors Adverse Reaction (Intermediate, Verified 01/26/25 10:31) cough losartan Adverse Reaction (Intermediate, Verified 01/26/25 10:31) Cough Medication List - Last Reconciled 01/26/25 by Lisa Graham RN albuterol sulfate 90 mcg/actuation 2 puffs inhalation Q6H PRN amlodipine 5 mg PO DAILY aspirin 81 mg PO DAILY atorvastatin 80 mg PO DAILY cyanocobalamin (vitamin B-12) 1,000 mcg subcut Q4W finasteride 5 mg PO DAILY hydralazine 100 mg PO BID metoprolol tartrate 50 mg PO BID tamsulosin (Flomax) 0.4 mg PO BEDTIME Do you need a note to return to daycare/school/sports/work: No Office Meds cyanocobalamin (vitamin B-12) 1,000 mcg/mL injection solution Performing Provider: Yanely Mcgraw MD Performing Location: [facility] Administered by: Lisa Graham RN on 01/26/25 10:32 Dose Route Admin Location Dispensed Lot Number Expiration Date [facility] Renal Nurse 1,000 mcg IM right deltoid 1 mL [id number] 07/19/26 8161-5917-85 [facility] Comments: Pt supplied Assessment & Plan Assessment & Plan Orders: Orders AMB Vitamin B12 Injection Patient Supplied Today E53.8 - Deficiency of other specified B group vitamins Medications: New cyanocobalamin (vitamin B-12) 1,000 mcg IM ONCE 1 mL 0RF E53.8 - Deficiency of other specified B group vitamins Coding
--- OUTSIDE RECORDS SUMMARY | 2025-01-26 12:17 | XMS_ITS | Encounter Summary ---
Author Organization [facility] Address [address] [place] [address] Care Team Providers Care Health Concierge Name Role Phone Carina Rush DO Primary Care Pro vider Unavailable Carina Rush DO Unavailable Unavailable Jose Ozuna MD Unavailable [phone] Gerri Arriaza NP Unavailable [phone] Yanely Mcgraw MD Primary Care Provider Unavaila ble Encounter Details Date Type Department Care Team Description 03/23/2015 Orders Only Adult Medicine [address] [address] Carina Rush DO Social History Tobacco Use [...] on filedocumented in this encounter Care Teams Health Concierge Relationship Specialty Start Date End Date Carina Rush DO PCP - General Internal Medicine 10/18/14 06/27/21 Yanely Mcgraw MD [address] [place] [address] [address] [place] [address] PCP - General Internal Medicine 06/28/21 Carina Rush DO Internal Medicine 04/06/14 07/06/24 Jose Ozuna MD [address] [place] [address] [address] [place] [address] Senior Editor Cardiovascular Disease 10/15/20 Gerri Arriaza NP [address] [place] [address] [address] [place] [address] Nurse Practitioner Cardiology 10/15/20 documented as of this encounter
--- OUTSIDE RECORDS SUMMARY | 2025-01-26 12:17 | XMS_ITS | Encounter Summary ---
Author Organization [facility] Address [address] [place] [address] Care Team Providers Care Metal Ceiling Builder Name Role Phone Carina Rush DO Primary Care Pro vider Unavailable Carina Rush DO Unavailable Unavailable Jose Ozuna MD Unavailable [phone] Gerri Arriaza NP Unavailable [phone] Yanely Mcgraw MD Primary Care Provider Unavaila ble Encounter Details Date Type Department Care Team Description 09/09/2019 Vault Clerk Report Medical Records [address] [place] [address] [facility] Social History Tobacco Use Types Packs/Day Years [...] on filedocumented in this encounter Care Teams Metal Ceiling Builder Relationship Specialty Start Date End Date Carina Rush DO PCP - General Internal Medicine 10/18/14 06/27/21 Yanely Mcgraw MD [address] [place] [address] [address]IVE [address] [place] [address] PCP - General Internal Medicine 06/28/21 Carina Rush DO Internal Medicine 04/06/14 07/06/24 Jose Ozuna MD [address] [place] [address] [address] [place] [address] Loop Drier Operator Cardiovascular Disease 10/15/20 Gerri Arriaza NP [address] [place] [address] [address]IVE [address] [place] [address] Nurse Practitioner Cardiology 10/15/20 documented as of this encounter
--- OUTSIDE RECORDS SUMMARY | 2025-01-26 12:17 | XMS_ITS | Encounter Summary ---
Author Organization [facility] Address [address] [place] [address] Care Team Providers Care Retail Sales Clerk Name Role Phone Yanely Mcgraw MD Primary Care Provider Unavaila Carina Nolen DO Primary Care Pro vider Unavailable Carina Rush DO Unavailable Unavailable Jose Ozuna MD Unavailable [phone] Gerri Arriaza NP Unavailable [phone] Yanely Mcgraw MD Primary Care Provider Unavailjacob aceves Encounter Details Date Type Department Care Team Description 09/19/2013 Release of Information Medical Records [address] [place] [id number] Abstract, Provider Social History Tobacco Use Types Packs/Day Years Used Date Smoking Tobacco: Never Assessed Smokeless Tobacco: Former Alcohol Habits Answer Date Recorded How often [...] on filedocumented in this encounter Care Teams Retail Sales Clerk Relationship Specialty Start Date End Date Yanely Mcgraw MD PCP - General Internal Medicine 09/12/13 10/17/14 Carina Rush DO PCP - General Internal Medicine 10/18/14 06/27/21 Yanely Mcgraw MD PCP - General Internal Medicine 06/28/21 Carina Rush DO Internal Medicine 04/06/14 07/06/24 Jose Ozuna MD [address] [place] [address] [address] [place] [address] Iron Launder Operator Cardiovascular Disease 10/15/20 Gerri Arriaza NP [address] [place] [address] [address] [place] [address] Nurse Practitioner Cardiology 10/15/20 documented as of this encounter
--- OUTSIDE RECORDS SUMMARY | 2025-01-26 12:17 | XMS_ITS | Encounter Summary ---
Author Organization [facility] Address [facility] [place] [address] Care Team Providers Care Transportation Escort Name Role Phone Jose Ozuna MD Unavailable [phone] Gerri Arriaza NP Unavailable [phone] Yanely Mcgraw MD Primary Care Provider Unavaila ble Reason for Visit * Reason Onset Date Comments REFERRAL 07/13/2024 Encounter Details Date Type Department Care Team Description 07/13/2024 Telephone Cardio [facility] [address] [place] [address] [address] [place] [address] Jose Ozuna MD [address] [place] [address] [address] [place], [place] [id number] REFERRAL Social History Tobacco Use Types Packs/Day Years [...] encounter Miscellaneous Notes * Telephone Encounter - Gloria Mckeon - 07/13/2024 4:21 PM EDT Faxed over referral, last office note, and demo to [facility] Medicine [phone]. documented in this encounter Plan of Treatment Not on file documented as of this encounter Visit Diagnoses Not on filedocumented in this encounter Care Teams Transportation Escort Relationship Specialty Start Date End Date Yanely Mcgraw MD [address] [place] [address] [address] [place] [address] PCP - General Internal Medicine 06/28/21 Jose Ozuna MD [address] [place] [address] DR[address] [place] [address] Risk Control Director Cardiovascular Disease 10/15/20 Gerri Arriaza NP [address] [place] [address] [address] [place] [address] Nurse Practitioner Cardiology 10/15/20 documented as of this encounter
--- OUTSIDE RECORDS SUMMARY | 2025-01-26 12:17 | XMS_ITS | Encounter Summary ---
Author Organization [facility] Address [address] [place] [address] Care Team Providers Care Well Servicing Rig Operator Name Role Phone Carina Rush DO Primary Care Pro vider Unavailable Carina Rush DO Unavailable Unavailable Jose Ozuna MD Unavailable [phone] Gerri Arriaza NP Unavailable [phone] Yanely Mcgraw MD Primary Care Provider Unavaila ble Encounter Details Date Type Department Care Team Description 03/22/2020 Orders Only Adult Medicine [address] [address] Carina Rush DO Snores (Primary Dx); Witnessed episode of apnea Social History Tobacco Use Types Packs/Day Years [...] as of this encounter Plan of Treatment Scheduled Orders Name Type Priority Associated Diagnoses Orde r Schedule SLEEP STUDY-FULL NEURO 16 CHANNEL SLEEP STUDY Routine Snores Witnessed episode of apnea Expected: 03/22/2020, Expires: 03/22/2021 documented as of this encounter Visit Diagnoses Diagnosis Snores- Primary Other dyspnea and respiratory abnormality Witnessed episode of apnea documented in this encounter Care Teams Well Servicing Rig Operator Relationship Specialty Start Date End Date Carina Rush DO PCP - General Internal Medicine 10/18/14 06/27/21 Yanely Mcgraw MD [address] [place] [address] [place] [address] PCP - General Internal Medicine 06/28/21 Carina Rush DO Internal Medicine 04/06/14 07/06/24 Jose Ozuna MD [address] [place] [address] [place] [address] Airport Operations Officer Cardiovascular Disease 10/15/20 Gerri Arriaza NP [address] [place] [address] [address] [place] [address] Nurse Practitioner Cardiology 10/15/20 documented as of this encounter
--- OUTSIDE RECORDS SUMMARY | 2025-01-26 12:17 | XMS_ITS | Encounter Summary ---
Author Organization [facility] Address [address] [place] [address] Care Team Providers Care Sports Medicine Physician Name Role Phone Carina Rush DO Primary Care Pro vider Unavailable Carina Rush DO Unavailable Unavailable Jose Ozuna MD Unavailable [phone] Gerri Arriaza NP Unavailable [phone] Yanely Mcgraw MD Primary Care Provider Unavaila ble Reason for Visit * Reason Onset Date Comments Appointment-Internal Referral 08/29/2020 ysiatry Encounter Details Date Type Department Care Team Description 08/29/2020 Telephone Physiatry - [address] [address] Carina Rush DO Appointment-Internal Referral (Physiatry) Social History Tobacco Use Types Packs/Day Years [...] have Coronavirus / COVID-19? No / Unsure 08/13/2020 8:29 AM EDT documented as of this encounter Miscellaneous Notes * Telephone Encounter - Daylin Farmer - 08/29/2020 9:13 AM EST Referral to Physiatry: FYI to referring. No response from patient. All attempts exhausted to reach patient to book. documented in this encounter Plan of Treatment Not on file documented as of this encounter Visit Diagnoses Not on filedocumented in this encounter Care Teams Sports Medicine Physician Relationship Specialty Start Date End Date Carina Rush DO PCP - General Internal Medicine 10/18/14 06/27/21 Yanely Mcgraw MD [address] [place] [address] [place] [address] PCP - General Internal Medicine 06/28/21 Carina Rush DO Internal Medicine 04/06/14 07/06/24 Jose Ozuna MD [address] [place] [address] [place] [address] Apron Worker Cardiovascular Disease 10/15/20 Gerri Arriaza NP [address] [place] [address] DR[address] [place] [address] Nurse Practitioner Cardiology 10/15/20 documented as of this encounter
--- OUTSIDE RECORDS SUMMARY | 2025-01-26 12:17 | XMS_ITS | Clinical Summary ---
Author Organization [address] [place] [address] Address [address] [place] [address] Phone Care Team Providers Care Metallurgist Process Name Role Phone Yanely Mcgraw MD Primary Care Provider [phone] Allergies Active Allergy Reactions Criticality Noted Date [...] and the less than 1% risk for [place], stroke or . He agrees to proceed [...] Type Department Care Team Description 12/06/2024 Telephone [facility] Cardiology [address] [place] [address] Jose Ozuna MD 11/09/2024 Telephone [facility] Cardiology [address] [place] [address] Jose Ozuna MD Referral (Sleep Medicine) from Last 3 Months Immunizations Name Administration [...] Cancer Screening: Colonoscopy 08/17/2027 08/17/2017 RSV Immunization Adult Patie nts (1 - 1-dose 75+ series) 2035 Hepatitis [...] age to complete this topic Meningococcal B Vaccine Aged Out No l onger eligible based on patient's age to complete [...] Procedure Name Priority Date/Time Associated Diagnosis Comments ANNUAL BMP BLOOD TEST Routine 02/28/2021 LIPID PANEL Routine 02/28/2021 COLONOSCOPY Routine 08/17/2017 HEPATITIS C SCREENING Routine 06/30/2016 from Last 3 Months or Most Recently Relevant to Health Maintenance Results * Annual BMP Blood Test (02/28/2021) [facility] Annual BMP Blood Test Abstracted [facility] Provider HEALTH MAINTENANCE Final Result * Lipid panel (02/28/2021) [facility] LDL/HDL Ratio 3 0 - 4 Triglycerides 85 0 - 150 mg/dL Cholesterol 130 0 - 200 mg/dL HDL 47 >=40 mg/dL LDL Cholesterol 66 0 - 100 mg/dL Blood Venous blood specimen / Unknown [facility] Provider LAB BLOOD ORDERABLES Meghna l Result * Colonoscopy (08/17/2017) [facility] Colonoscopy No interpretation , abstracted Anatomical Region Laterality Modality Other [facility] Provider HEALTH MAINTENANCE Final Result * Hepatitis C Screening (06/30/2016) [facility] Hepatitis C Screening Abstracted [facility] Provider HEALTH MAINTENANCE Final Result from Last 3 Months or Most Recently Relevant to Health Maintenance Insurance [facility] Care Teams Metallurgist Process Relationship Specialty Start Date End Date Yanely Mcgraw MD [address] [place] [phone] PCP - General Internal Medicine 10/03/24
--- OUTSIDE RECORDS SUMMARY | 2025-01-26 12:18 | XMS_ITS | Encounter Summary ---
Author Organization [facility] Address [address] [place] [address] Care Team Providers Care Ornamental Iron Worker Helper Name Role Phone Carina Rush DO Primary Care Pro vider Unavailable Carina Rush DO Unavailable Unavailable Jose Ozuna MD Unavailable [phone] Gerri Arriaza NP Unavailable [phone] Yanely Mcgraw MD Primary Care Provider Unavaila ble Encounter Details Date Type Department Care Team Description 02/04/2021 Gas Plumbing Inspector Report Medical Records [address] [place] [address] Ale Machuca Social History Tobacco Use Types [...] have Coronavirus / COVID-19? No / Unsure 01/16/2021 1:17 PM EDT documented as of this encounter Plan of Treatment Not on file documented as of this encounter Visit Diagnoses Not on filedocumented in this encounter Care Teams Ornamental Iron Worker Helper Relationship Specialty Start Date End Date Carina Rush DO PCP - General Internal Medicine 10/18/14 06/27/21 Yanely Mcgraw MD [address] [place] [address] [address]IVE [address] [place] [address] PCP - General Internal Medicine 06/28/21 Carina Rush DO Internal Medicine 04/06/14 07/06/24 Jose Ozuna MD [address] [place] [address] [address] [place] [address] Race Engine Builder Cardiovascular Disease 10/15/20 Gerri Arriaza NP [address] [place] [address] DRIVE [address] [place] [address] Nurse Practitioner Cardiology 10/15/20 documented as of this encounter
--- OUTSIDE RECORDS SUMMARY | 2025-01-26 12:18 | XMS_ITS | Encounter Summary ---
Author Organization [facility] Address [address] [place] [address] Care Team Providers Care Boat Engines Installer Name Role Phone Carina Rush DO Primary Care Pro vider Unavailable Carina Rush DO Unavailable Unavailable Jose Ozuna MD Unavailable [phone] Gerri Arriaza NP Unavailable [phone] Yanely Mcgraw MD Primary Care Provider Unavaila ble Reason for Visit * Reason Onset Date Comments Faxed Order 11/12/2020 Encounter Details Date Type Department Care Team Description 11/12/2020 Telephone Adult Medicine [address] [address] Carina Rush DO Faxed Order Social History [...] Lenora. Please sign, date and fax to [phone]. documented in this encounter Plan of Treatment Not on file documented as of this encounter Visit Diagnoses Not on filedocumented in this encounter Care Teams Boat Engines Installer Relationship Specialty Start Date End Date Carina Rush DO PCP - General Internal Medicine 10/18/14 06/27/21 Yanely Mcgraw MD [address] [place] [address] [place] [address] PCP - General Internal Medicine 06/28/21 Carina Rush DO Internal Medicine 04/06/14 07/06/24 Jose Ozuna MD [address] [place] [address] [address] [place] [address] Manager Story Cardiovascular Disease 10/15/20 Gerri Arriaza NP [address] [place] [address] [address] [place] [address] Nurse Practitioner Cardiology 10/15/20 documented as of this encounter
--- OUTSIDE RECORDS SUMMARY | 2025-01-26 12:18 | XMS_ITS | Encounter Summary ---
Author Organization [facility] Address [address] [place] [address] Care Team Providers Care Rn Social Services Name Role Phone Carina Rush DO Primary Care Pro vider Unavailable Carina Rush DO Unavailable Unavailable Jose Ozuna MD Unavailable [phone] Gerri Arriaza NP Unavailable [phone] Yanely Mcgraw MD Primary Care Provider Unavaila ble Encounter Details Date Type Department Care Team Description 10/24/2020 Enologist Report Medical Records [address] [place] [address] [facility] Social History Tobacco Use Types Packs/Day [...] on filedocumented in this encounter Care Teams Rn Social Services Relationship Specialty Start Date End Date Carina Rush DO PCP - General Internal Medicine 10/18/14 06/27/21 Yanely Mcgraw MD [address] [place] [address] [address] [place] [address] PCP - General Internal Medicine 06/28/21 Carina Rush DO Internal Medicine 04/06/14 07/06/24 Jose Ozuna MD [address] [place] [address] [address] [place] [address] Manager Of Quality Cardiovascular Disease 10/15/20 Gerri Arriaza NP [address] [place] [address] [address] [place] [address] Nurse Practitioner Cardiology 10/15/20 documented as of this encounter
--- OUTSIDE RECORDS SUMMARY | 2025-01-26 12:18 | XMS_ITS | Encounter Summary ---
Author Organization [facility] Address [address] [place] [address] Care Team Providers Care City Dispatcher Name Role Phone Carina Rush DO Primary Care Pro vider Unavailable Carina Rush DO Unavailable Unavailable Jose Ozuna MD Unavailable [phone] Gerri Arriaza NP Unavailable [phone] Yanely Mcgraw MD Primary Care Provider Unavaila ble Encounter Details Date Type Department Care Team Description 10/06/2016 Fiberglass Laminator Report Medical Records [address] [place] [address] Niko Aceves MD Social History Tobacco Use [...] on filedocumented in this encounter Care Teams City Dispatcher Relationship Specialty Start Date End Date Carina Rush DO PCP - General Internal Medicine 10/18/14 06/27/21 Yanely Mcgraw MD [address] [place] [address] [address] [place] [address] PCP - General Internal Medicine 06/28/21 Carina Rush DO Internal Medicine 04/06/14 07/06/24 Jose Ozuna MD [address] [place] [address] [address] [place] [address] Contact Center Agent Cardiovascular Disease 10/15/20 Gerri Arriaza NP [address] [place] [address] [address] [place] [address] Nurse Practitioner Cardiology 10/15/20 documented as of this encounter
--- OUTSIDE RECORDS SUMMARY | 2025-01-26 12:18 | XMS_ITS | Encounter Summary ---
Author Organization [facility] Address [facility] [place] [address] Care Team Providers Care Supervisor Process Testing Name Role Phone Jose Ozuna MD Unavailable [phone] Gerri Arriaza NP Unavailable [phone] Yanely Mcgraw MD Primary Care Provider Unavaila ble Reason for Visit * Reason Onset Date Comments Call From Office 07/14/2024 Encounter Details Date Type Department Care Team Description 07/14/2024 Telephone Cardio PVC [facility] [address] [place] [address] Drive [address] [place] [address] Jose Ozuna MD [address] [place] [address] [address] [place], [place] [phone] Call From Md Office Social History Tobacco Use Types Packs/Day Years [...] encounter Miscellaneous Notes * Telephone Encounter - Bonnie Hernandez M.A. - 07/14/2024 4:17 PM EDT Patient see in the office on 07/08/24. Please review. * Telephone Encounter - Gloria Mckeon - 07/14/2024 11:41 AM EDT Rayna from [facility] called requesting clearance for a colonoscopy that has not been scheduled until patient is cleared. Rayna stated that the last office note can be addended and faxed to [phone]. Raynacan be reached at [phone]. documented in this encounter Plan of Treatment Not on file documented as of this encounter Visit Diagnoses Not on filedocumented in this encounter Care Teams Supervisor Process Testing Relationship Specialty Start Date End Date Yanely Mcgraw MD [address] [place] [address] [place] [address] PCP - General Internal Medicine 06/28/21 Jose Ozuna MD [address] [place] [address] [place] [address] Outpatient Admitting Clerk Cardiovascular Disease 10/15/20 Gerri Arriaza NP [address] [place] [address] [place] [address] Nurse Practitioner Cardiology 10/15/20 documented as of this encounter
--- OUTSIDE RECORDS SUMMARY | 2025-01-26 12:18 | XMS_ITS | Encounter Summary ---
Author Organization [facility] Address [address] [place] [address] Care Team Providers Care Field Software Engineer Name Role Phone Carina Rush DO Primary Care Pro vider Unavailable Carina Rush DO Unavailable Unavailable Jose Ozuna MD Unavailable [phone] Gerri Arriaza NP Unavailable [phone] Yanely Mcgraw MD Primary Care Provider Unavaila ble Encounter Details Date Type Department Care Team Description 03/01/2021 SCAN Medical Records [address] [place] [address] Shabbir Menezes MD [address] [place] [address] Social History Tobacco Use Types Packs/Day Years [...] on filedocumented in this encounter Care Teams Field Software Engineer Relationship Specialty Start Date End Date Carina Rush DO PCP - General Internal Medicine 10/18/14 06/27/21 Yanely Mcgraw MD [address] [place] [address] [place] [address] PCP - General Internal Medicine 06/28/21 Carina Rush DO Internal Medicine 04/06/14 07/06/24 Jose Ozuna MD [address] [place] [address] [place] [address] Stick Feeder Cardiovascular Disease 10/15/20 Gerri Arriaza NP [address] [place] [address] [place] [address] Nurse Practitioner Cardiology 10/15/20 documented as of this encounter
--- OUTSIDE RECORDS SUMMARY | 2025-01-26 12:18 | XMS_ITS | Encounter Summary ---
Author Organization [facility] Address [address] [facility] [address] [place] [address] Phone Care Team Providers Care Client Success Specialist Name Role Phone Unavailable Primary Care Provider Unavailabl e Encounter Details Date Type Department Care Team (Late st Contact Info) Description 01/28/2021 Orders Only [facility] [address] [facility] [address] [place] [phone] Shabbir Menezes MD [address] [facility] [address] [place] [phone] Primary hypertension Social History Tobacco Use Types [...]
--- OUTSIDE RECORDS SUMMARY | 2025-01-26 12:18 | XMS_ITS | Clinical Summary ---
Author Organization [facility] Address [address] [address] Care Team Providers Care Tour Coordinator Name Role Phone Unavailable Primary Care Provider [...] Colorectal Cancer Screening: Sigmoidoscopy 2009 Influenza Vaccine (Season Ended) 2025 Hepatitis B Vaccine Aged Out No longe r eligible based on patient's age to complete this topic Pneumococcal Vaccine: Peds ( 0 to 5 Years) and At-Risk Patients (6 to 49 Years) Aged Out No longer eligible b ased on patient's age to complete this topic Insurance [facility]
--- OUTSIDE RECORDS SUMMARY | 2025-01-26 12:18 | XMS_ITS | Encounter Summary ---
Author Organization [facility] Address [address] [place] [address] Care Team Providers Care Endoscopy Technican Name Role Phone Carina Rush DO Primary Care Pro vider Unavailable Carina Rush DO Unavailable Unavailable Jose Ozuna MD Unavailable [phone] Gerri Arriaza NP Unavailable [phone] Yanely Mcgraw MD Primary Care Provider Unavaila ble Encounter Details Date Type Department Care Team Description 11/07/2020 Hospital Medical Records [address] [place] [address] Social History Tobacco Use Types Packs/Day Years [...] on filedocumented in this encounter Care Teams Endoscopy Technican Relationship Specialty Start Date End Date Carina Rush DO PCP - General Internal Medicine 10/18/14 06/27/21 Yanely Mcgraw MD [address] [place] [address] [address] [place] [address] PCP - General Internal Medicine 06/28/21 Carina Rush DO Internal Medicine 04/06/14 07/06/24 Jose Ozuna MD [address] [place] [address] [address] [place] [address] Sterile Supervisor Cardiovascular Disease 10/15/20 Gerri Arriaza NP [address] [place] [address] [address] [place] [address] Nurse Practitioner Cardiology 10/15/20 documented as of this encounter
--- OUTSIDE RECORDS SUMMARY | 2025-01-26 12:18 | XMS_ITS | Encounter Summary ---
Author Organization [facility] Address [address] [place] [address] Care Team Providers Care Pattern Mechanic Name Role Phone Carina Rush DO Primary Care Pro vider Unavailable Carina Rush DO Unavailable Unavailable Jose Ozuna MD Unavailable [phone] Gerri Arriaza NP Unavailable [phone] Yanely Mcgraw MD Primary Care Provider Unavaila ble Reason for Visit * Reason Onset Date Comments Provider Call Back 05/28/2017 Encounter Details Date Type Department Care Team Description 05/28/2017 Telephone Adult [address] [address] Carina Rush DO Provider Call Back Social History Tobacco Use Types Packs/Day Years [...] encounter Miscellaneous Notes * Telephone Encounter - Carina Shaw DO - 06/02/2017 2:51 PM EDT Given that attempt was made to contact sons and pt (in Welsh) I will await patient calling back with info or making an appointment to discuss concerns. * Telephone Encounter - Pau Hernández R.N. - 06/02/2017 10:04 AM EDT Pt will not use the interpretor phone ( he hung up x 2 when using ) and then called back to ask fordr esdras shaw. States he will wait for her to call, will not share any indication of why he needs to speak to her * Telephone Encounter - Pau Hernández R.N. - 05/29/2017 11:53 AM EDT Pt does not speak malay, does not want to talk to me or interpretor, wants to wait for dr Silva. Asked for iron number, tried to call maximino and his phone is not taking calls, * Telephone Encounter - Devora Yoon M.A. - 05/29/2017 10:46 AM EDT Please triage * Telephone Encounter - Carina Shaw DO - 05/29/2017 12:35 AM EDT Pls call son back for clarification * Telephone Encounter - Kalpana Newton - 05/28/2017 2:40 PM EDT Caller requesting call back from provider: Is the caller the patient? NO If caller is not the patient, what is the callers name? Peter Callers relationship to patient? Son If person calling is not the patient themselves, is there a verbal release in FYI or permanent comments for this person: YES Reason for call back: Son states that his father would like to speak to Dr. Stauffer to consult some personal issues with. He speaks [place] only. Caller offered to speak with the nurse for assistance: NO Response: Patient offered to speak with nurse for assistance and patient agreed. Message forwarded to nurse. documented in this encounter Plan of Treatment Not on file documented as of this encounter Visit Diagnoses Not on filedocumented in this encounter Care Teams Pattern Mechanic Relationship Specialty Start Date End Date Carina Rush DO PCP - General Internal Medicine 10/18/14 06/27/21 Yanely Mcgraw MD [address] [place] [address] [place] [address] PCP - General Internal Medicine 06/28/21 Carina Rush DO Internal Medicine 04/06/14 07/06/24 Jose Ozuna MD [address] [place] [address] [place] [address] Tube Builder Cardiovascular Disease 10/15/20 Gerri Arriaza NP [address] [place] [address] [place] [address] Nurse Practitioner Cardiology 10/15/20 documented as of this encounter
--- OUTSIDE RECORDS SUMMARY | 2025-01-26 12:18 | XMS_ITS | Encounter Summary ---
Author Organization [facility] Address [address] [place] [address] Care Team Providers Care Belt Maker Name Role Phone Carina Rush DO Primary Care Pro vider Unavailable Carina Rush DO Unavailable Unavailable Jose Ozuna MD Unavailable [phone] Gerri Arriaza NP Unavailable [phone] Yanely Mcgraw MD Primary Care Provider Unavaila ble Encounter Details Date Type Department Care Team Description 10/26/2020 Hospital Medical Records [address] [place] [address] Akash Collins MD [address] [facility] [address] [place] [address] Social History Tobacco Use Types Packs/Day Years [...] on filedocumented in this encounter Care Teams Belt Maker Relationship Specialty Start Date End Date Carina Rush DO PCP - General Internal Medicine 10/18/14 06/27/21 Yanely Mcgraw MD [address] [place] [address] [place] [address] PCP - General Internal Medicine 06/28/21 Carina Rush DO Internal Medicine 04/06/14 07/06/24 Jose Ozuna MD [address] [place] [address] [address] [place] [address] Combat Rifle Crewmember Cardiovascular Disease 10/15/20 Gerri Arriaza NP [address] [place] [address] [address] [place] [address] Nurse Practitioner Cardiology 10/15/20 documented as of this encounter
--- OUTSIDE RECORDS SUMMARY | 2025-01-26 12:18 | XMS_ITS | Encounter Summary ---
Author Organization [facility] Address [address] [place] [address] Care Team Providers Care Telephone Operators Supervisor Name Role Phone Carina Rush DO Primary Care Pro vider Unavailable Carina Rush DO Unavailable Unavailable Jose Ozuna MD Unavailable [phone] Gerri Arriaza NP Unavailable [phone] Yanely Mcgraw MD Primary Care Provider Unavaila ble Encounter Details Date Type Department Care Team Description 07/30/2016 Release of Information Medical Records [address] [place] [address] Abstract, Provider Social History Tobacco Use Types [...] on filedocumented in this encounter Care Teams Telephone Operators Supervisor Relationship Specialty Start Date End Date Carina Rush DO PCP - General Internal Medicine 10/18/14 06/27/21 Yanely Mcgraw MD [address] [place] [address] [address] [place] [address] PCP - General Internal Medicine 06/28/21 Carina Rush DO Internal Medicine 04/06/14 07/06/24 Jose Ozuna MD [address] [place] [address] [address] [place] [address] Prop Making Supervisor Cardiovascular Disease 10/15/20 Gerri Arriaza NP [address] [place] [address] [address] [place] [address] Nurse Practitioner Cardiology 10/15/20 documented as of this encounter
--- OUTSIDE RECORDS SUMMARY | 2025-01-26 12:18 | XMS_ITS | Encounter Summary ---
Author Organization [facility] Address [address] [place] [address] Care Team Providers Care Instructional Leader Name Role Phone Carina Rush DO Primary Care Pro vider Unavailable Carina Rush DO Unavailable Unavailable Jose Ozuna MD Unavailable [phone] Gerri Arriaza NP Unavailable [phone] Yanely Mcgraw MD Primary Care Provider Unavaila ble Reason for Referral * Radiology Services (Routine) - Closed Specialty Diagnoses / Procedures Referred By Josef hernandez Referred To Contact Radiology Diagnoses Family history of cerebral aneurysm Procedures MRI OF BRAIN AND FURTHER SEQUENCES W/WO CON Carina Rush DO Mri/[address] [address] Referral ID Status Reason Start Date Expiration Date V isits Requested Visits Authorized NO AUTH REQUIRED Closed 09/25/2016 09/25/2017 1 1 Encounter Details Date Type Department Care Team Description 08/22/2016 Orders Only Adult Medicine [address] [address] Carina Rush DO Family history of cerebral [...] diseases documented in this encounter Care Teams Instructional Leader Relationship Specialty Start Date End Date Carina Rush DO PCP - General Internal Medicine 10/18/14 06/27/21 Yanely Mcgraw MD [address] [place] [address] [address] [place] [address] PCP - General Internal Medicine 06/28/21 Carina Rush DO Internal Medicine 04/06/14 07/06/24 Jose Ozuna MD [address] [place] [address] [address] [place] [address] Stock Feeder Cardiovascular Disease 10/15/20 Gerri Arriaza NP [address] [place] [address] [address] [place] [address] Nurse Practitioner Cardiology 10/15/20 documented as of this encounter
--- OUTSIDE RECORDS SUMMARY | 2025-01-26 12:18 | XMS_ITS | Encounter Summary ---
Author Organization [facility] Address [address] [place] [address] Care Team Providers Care Assignment Desk Editor Name Role Phone Carina Rush DO Primary Care Pro vider Unavailable Carina Rush DO Unavailable Unavailable Jose Ozuna MD Unavailable [phone] Gerri Arriaza NP Unavailable [phone] Yanely Mcgraw MD Primary Care Provider Unavaila ble Reason for Visit * Reason Onset Date Comments Back Pain 03/06/2021 Encounter Details Date Type Department Care Team Description 03/06/2021 Refill Adult Medicine [address] [address] Carina Rush DO Back Pain Social History Tobacco Use Types Packs/Day Years [...] PM EDT documented as of this encounter Miscellaneous Notes * Telephone Encounter - Asmita Garcia C.M.A - 03/21/2021 2:09 PM EDT [phone] (home) [phone] (work) Lvm for pt to return call. * Telephone Encounter - Roxanne Li M.A. - 03/19/2021 3:35 PM EDT Left message for patient to call back * Telephone Encounter - Carina Arcos DO - 03/14/2021 10:08 PM EDT Given recent cad and cabg And numerous med intolerances have not refilled Should also fu w/ cards and socket welder helper as directed * Telephone Encounter - Aliya Boyce M.A. - 03/07/2021 11:28 AM EDT This was last filled on 07/21/19 for 90 days with 1 refill. Taken off of med list on 03/22/20. please review and advise * Telephone Encounter - Winifred Stanley - 03/06/2021 4:22 PM EDT Patient would like script to be: E-PRESCRIBED/FAXED TO PHARMACY When was the patients last office visit in Adult Medicine?: [phone] When was the last time the patient saw their PCP? Same as above Does patient have an upcoming appointment? No-patient refused appointment, will call back to book appointment (THE MEDICATION IS NOT ON THE MED LIST AND IS IDENTIFIED BELOW): {MED LIST:94888) Med name: Naproxen Dosage: N/A # of tablets: N/a Local pharmacy with request for 30 -day supply Instructions: Did you check the pharmacy information above?: YES Patients current insurance carrier: Payor: [facility]/PPO POS / Plan: PPO $10 [place] [id number] / Product Type: PPO [id number] * Telephone Encounter - Winifred Stanley - 03/06/2021 4:18 PM EDT Who is calling? The patient Name of the medication Naproxen What is the specific problem or interaction? Patient called and stated ghe is having chronic back pain, Patient stated Scottie KARIMI prescribed medication last year, and patient would like anotherprescription for medication If the patient is having a problem with taking the med - how long has the problem been going on? 1 year documented in this encounter Plan of Treatment Not on file documented as of this encounter Visit Diagnoses Not on filedocumented in this encounter Care Teams Assignment Desk Editor Relationship Specialty Start Date End Date Carina Rush DO PCP - General Internal Medicine 10/18/14 06/27/21 Yanely Mcgraw MD [address] [place] [address] [place] [address] PCP - General Internal Medicine 06/28/21 Carina Rush DO Internal Medicine 04/06/14 07/06/24 Jose Ozuna MD [address] [place] [address] [address] [place] [address] Logistics Lead Cardiovascular Disease 10/15/20 Gerri Arriaza NP [address] [place] [address] [address] [place] [address] Nurse Practitioner Cardiology 10/15/20 documented as of this encounter
--- OUTSIDE RECORDS SUMMARY | 2025-01-26 12:18 | XMS_ITS | Encounter Summary ---
Author Organization [facility] Address [address] [place] [address] Care Team Providers Care Venetian Blind Assembler Name Role Phone Carina Rush DO Primary Care Pro vider Unavailable Carina Rush DO Unavailable Unavailable Jose Ozuna MD Unavailable [phone] Gerri Arriaza NP Unavailable [phone] Yanely Mcgraw MD Primary Care Provider Unavaila ble Reason for Visit * Reason Onset Date Comments Faxed Order 12/12/2020 Encounter Details Date Type Department Care Team Description 12/12/2020 Telephone Adult Medicine [address] [address] Carina Rush DO Faxed Order Social History [...] TO BE SIGN AND FAX BACK TO [phone]. documented in this encounter Plan of Treatment Not on file documented as of this encounter Visit Diagnoses Not on filedocumented in this encounter Care Teams Venetian Blind Assembler Relationship Specialty Start Date End Date Carina Rush DO PCP - General Internal Medicine 10/18/14 06/27/21 Yanely Mcgraw MD [address] [place] [address] [place] [address] PCP - General Internal Medicine 06/28/21 Carina Rush DO Internal Medicine 04/06/14 07/06/24 Jose Ozuna MD [address] [place] [address] [address] [place] [address] Vocational Guidance Counselor Cardiovascular Disease 10/15/20 Gerri Arriaza NP [address] [place] [address] [address] [place] [address] Nurse Practitioner Cardiology 10/15/20 documented as of this encounter
--- OUTSIDE RECORDS SUMMARY | 2025-01-26 12:18 | XMS_ITS | Encounter Summary ---
Author Organization [facility] Address [address] [place] [address] Care Team Providers Care Snuff Packing Machine Operator Name Role Phone Carina Rush DO Primary Care Pro vider Unavailable Carina Rush DO Unavailable Unavailable Jose Ozuna MD Unavailable Gerri Arriaza NP Unavailable [phone] Yanely Mcgraw MD Primary Care Provider Unavaila ble Encounter Details Date Type Department Care Team Description 10/25/2020 Hospital Medical Records [address] [place] [address] Social History Tobacco Use Types Packs/Day Years [...] on filedocumented in this encounter Care Teams Snuff Packing Machine Operator Relationship Specialty Start Date End Date Carina Rush DO PCP - General Internal Medicine 10/18/14 06/27/21 Yanely Mcgraw MD [address] [place] [address] [address] [place] [address] PCP - General Internal Medicine 06/28/21 Carina Rush, Internal Medicine 04/06/14 07/06/24 Jose Ozuna MD [address] [place] [address] [address] [place] [address] Billing Collections Specialist Cardiovascular Disease 10/15/20 Gerri Arriaza NP [address] [place] [address] [address] [place] [address] Nurse Practitioner Cardiology 10/15/20 documented as of this encounter
--- OUTSIDE RECORDS SUMMARY | 2025-01-26 12:18 | XMS_ITS | Encounter Summary ---
Author Organization [facility] Address [address] [place] [address] Care Team Providers Care Fastener Technologist Name Role Phone Carina Rush DO Primary Care Pro vider Unavailable Carina Rush DO Unavailable Unavailable Jose Ozuna MD Unavailable [phone] Gerri Arriaza NP Unavailable [phone] Yanely Mcgraw MD Primary Care Provider Unavaila ble Reason for Visit * Reason Comments E-prescribe Rx Request Encounter Details Date Type Department Care Team Description 05/03/2019 Refill Adult Medicine [address] [address] Dorcas Rueda NP E-prescribe Rx Request Social [...] Payor: HARINI/PPO POS / Plan: PPO $10 [place] [id number] / ProductType: PPO [id number] documented in this encounter Plan of Treatment Not on file documented as of this encounter Visit Diagnoses Not on filedocumented in this encounter Care Teams Fastener Technologist Relationship Specialty Start Date End Date Carina Rush DO PCP - General Internal Medicine 10/18/14 06/27/21 Yanely Mcgraw MD [address] [place] [address] [address] [place] [address] PCP - General Internal Medicine 06/28/21 Carina Rush DO Internal Medicine 04/06/14 07/06/24 Jose Ozuna MD [address] [place] [address] [address] [place] [address] Program Mgr Cardiovascular Disease 10/15/20 Gerri Arriaza NP [address] [place] [address] [address] [place], [place] [address] Nurse Practitioner Cardiology 10/15/20 documented as of this encounter
--- OUTSIDE RECORDS SUMMARY | 2025-01-26 12:18 | XMS_ITS | Encounter Summary ---
Author Organization [facility] Address [address] [place] [address] Care Team Providers Care Check Cashier Name Role Phone Carina Rush DO Primary Care Pro vider Unavailable Carina Rush DO Unavailable Unavailable Jose Ozuna MD Unavailable [phone] Gerri Arriaza NP Unavailable [phone] Yanely Mcgraw MD Primary Care Provider Unavaila ble Reason for Visit * Reason Onset Date Comments refill request 03/19/2021 Encounter Details Date Type Department Care Team Description 03/19/2021 Refill Adult Medicine [address] [address] Carina Rush DO refill request Social History [...] THE PATIENT'S LAST APPOINTMENT IN ADULT MEDICINE? [phone] WHEN WAS THE LAST TIME THE PATIENT [...] Payor: HARINI/ROSEMARIE POS / Plan: PPO $10 [place] [id number] / ProductType: PPO [id number] documented in this encounter Plan of Treatment Not on file documented as of this encounter Visit Diagnoses Diagnosis Chest pain, unspecified type documented in this encounter Care Teams Check Cashier Relationship Specialty Start Date End Date Carina Rush DO PCP - General Internal Medicine 10/18/14 06/27/21 Yanely Mcgraw MD [address] [place] [address] [place] [address] PCP - General Internal Medicine 06/28/21 Carina Rush DO Internal Medicine 04/06/14 07/06/24 Jose Ozuna MD [address] [place] [address] [place] [address] Pathology Laboratory Aides Teacher Cardiovascular Disease 10/15/20 Gerri Arriaza NP [address] [place] [address] [place] [address] Nurse Practitioner Cardiology 10/15/20 documented as of this encounter
--- OUTSIDE RECORDS SUMMARY | 2025-01-26 12:18 | XMS_ITS | Encounter Summary ---
Author Organization [facility] Address [address] [place] [address] Care Team Providers Care Solar Water Heater Installer Name Role Phone Carina Rush DO Primary Care Pro vider Unavailable Carina Rush DO Unavailable Unavailable Jose Ozuna MD Unavailable [phone] Gerri Arriaza NP Unavailable [phone] Yanely Mcgraw MD Primary Care Provider Unavaila ble Encounter Details Date Type Department Care Team Description 07/27/2019 Commercial Kitchen Service Technician Report Medical Records [address] [place] [address] Jose Ozuna MD [address] [place] [address] [address] [place] [address] Social History Tobacco Use Types Packs/Day Years [...] on filedocumented in this encounter Care Teams Solar Water Heater Installer Relationship Specialty Start Date End Date Carina Rush DO PCP - General Internal Medicine 10/18/14 06/27/21 Yanely Mcgraw MD [address] [place] [address] [address] [place] [address] PCP - General Internal Medicine 06/28/21 Carina Rush DO Internal Medicine 04/06/14 07/06/24 Jose Ozuna MD [address] [place] [address] [address] [place] [address] Patch Machine Operator Cardiovascular Disease 10/15/20 Gerri Arriaza NP [address] [place] [address] [address] [place] [address] Nurse Practitioner Cardiology 10/15/20 documented as of this encounter
--- OUTSIDE RECORDS SUMMARY | 2025-01-26 12:18 | XMS_ITS | Encounter Summary ---
Author Organization [facility] Address [address] [place] [address] Care Team Providers Care Security System Technician Name Role Phone Carina Rush DO Primary Care Pro vider Unavailable Carina Rush DO Unavailable Unavailable Jose Ozuna MD Unavailable [phone] Gerri Arriaza NP Unavailable [phone] Yanely Mcgraw MD Primary Care Provider Unavaila ble Encounter Details Date Type Department Care Team Description 02/22/2021 Release of Information Medical Records [address] [place] [address] Abstract, Provider Social History Tobacco Use Types [...] on filedocumented in this encounter Care Teams Security System Technician Relationship Specialty Start Date End Date Carina Rush DO PCP - General Internal Medicine 10/18/14 06/27/21 Yanely Mcgraw MD [address] [place] [address] [address] [place] [address] PCP - General Internal Medicine 06/28/21 Carina Rush DO Internal Medicine 04/06/14 07/06/24 Jose Ozuna MD [address] [place] [address] [address] [place] [address] Hawk Missile System Crewmember Cardiovascular Disease 10/15/20 Gerri Arriaza NP [address] [place] [address] [address] [place] [address] Nurse Practitioner Cardiology 10/15/20 documented as of this encounter
== END 2025-01-26 10:30 | disposition home or self-care (01) ==
LOC: HO.HMCC 10:24
PROVIDERS: PCP Internal Medicine; Visit Provider Internal Medicine
DX: E53.8 Deficiency of other specified B group vitamins (principal)

== ENCOUNTER → 2025-01-26 10:24 | Outpatient (BNVA) | payer BC, SELFPAY | PROVIDERS: PCP Internal Medicine; Visit Provider Internal Medicine | DX: E53.8 Deficiency of other specified B group vitamins (principal) | CPT/HCPCS: 96372; J3420 ==

== ENCOUNTER 2025-02-23 10:12 | Outpatient (AMB) | payer BC, SELFPAY ==
--- NOTE | 2025-02-23 10:22 | AM.OFFVISNUR ---
Intake Visit Reasons: B12 Allergies THEODORE Inhibitors Adverse Reaction (Intermediate, Verified 01/26/25 10:31) cough losartan Adverse Reaction (Intermediate, Verified 01/26/25 10:31) Cough Nursing Note Pt came in for Vitamin B12 injection. Administered to right deltoid. Pt tolerated well. Office Meds cyanocobalamin (vitamin B-12) 1,000 mcg/mL injection solution Performing Provider: Yanely Mcgraw MD [place] [facility] [place] Administered by: Mellissa Parker on 02/23/25 10:24 Dose Route Admin Location Dispensed Lot Number Expiration Date [facility] Community Reinvestment Act Officer 1,000 mcg IM 1 mL [id number] 08/07/26 4310-3868-47 [facility] Assessment & Plan Assessment & Plan Orders: Orders AMB Vitamin B12 Injection Patient Supplied Today E53.8 - Deficiency of other specified B group vitamins Medications: New cyanocobalamin (vitamin B-12) 1,000 mcg IM ONCE 1 mL 0RF E53.8 - Deficiency of other specified B group vitamins Coding
--- OUTSIDE RECORDS SUMMARY | 2025-02-23 11:20 | XMS_ITS | Encounter Summary ---
Author Organization [facility] Address [address] [facility] [address] [place] [address] Phone Care Team Providers Care Lawn Service Manager Name Role Phone Unavailable Primary Care Provider Unavailabl e Encounter Details Date Type Department Care Team (Late st Contact Info) Description 01/28/2021 Orders Only [facility] [address] [facility] [address] [place] [address] Shabbir Menezes MD [address] [facility] [address] [place] [phone] Primary hypertension Social History Tobacco Use Types [...]
--- OUTSIDE RECORDS SUMMARY | 2025-02-23 11:20 | XMS_ITS | Clinical Summary ---
Author Organization [facility] Address [address] [place] [address] Care Team Providers Care Laborer Plumbing Name Role Phone Unavailable Primary Care Provider [...] Colonoscopy 2009 Colorectal Cancer Screening: Sigmoidoscopy 2009 Pneumococcal Vaccine: 50+ Ye ars (1 of - PCV) 2010 Influenza Vaccine (Season Ended) 2025 Hepatitis B Vaccine Aged Out No longe r eligible based on patient's age to complete this topic [place] [address] [address] [facility]
--- OUTSIDE RECORDS SUMMARY | 2025-02-23 11:20 | XMS_ITS | Clinical Summary ---
Author Organization [address] [place] [address] Address [address] [place] [address] Phone Care Team Providers Care Accountant Property Name Role Phone Yanely Mcgraw MD Primary Care Provider [phone] Allergies Active Allergy Reactions Criticality Noted Date [...] and the less than 1% risk for [place], stroke or . He agrees to proceed [...] Description 12/06/2024 Telephone [facility] [address] [place] [address] Jose Ozuna MD from Last 3 Months Immunizations Name Administration [...] 2023-2 5 season) 2024 07/06/2021 Influenza Vaccine (Season Ended) 2025 Cholesterol Screening (Lipid Panel) 02/28/2026 02/28/2021 DTaP,Tdap,and [...] Results * Annual BMP Blood Test (02/28/2021) Annual BMP Blood Test Abstracted us Historical Provider HEALTH MAINTENANCE Final Result * Lipid panel (02/28/2021) [facility] LDL/HDL Ratio 3 0 - 4 Triglycerides 85 0 - 150 mg/dL Cholesterol 130 0 - 200 mg/dL HDL 47 >=40 mg/dL LDL Cholesterol 66 0 - 100 mg/dL Blood Venous blood specimen / Unknown Result [facility] Provider LAB BLOOD ORDERABLES Meghna l Result * Colonoscopy (08/17/2017) Pathologist [facility] Colonoscopy No interpretation , abstracted Anatomical Region Laterality Modality Other [facility] Provider HEALTH MAINTENANCE Final Result * Hepatitis C Screening (06/30/2016) [facility] Hepatitis C Screening Abstracted [facility] Provider HEALTH MAINTENANCE Final Result from Last 3 Months or Most Recently Relevant to Health Maintenance [facility] [place] [id number] [facility] Care Teams Accountant Property Relationship Specialty Start Date End Date Yanely Mcgraw MD [address] [facility] [place] [address] PCP - General Internal Medicine 10/03/24
== END 2025-02-23 10:16 | disposition home or self-care (01) ==
PROVIDERS: PCP Internal Medicine; Visit Provider Internal Medicine
DX: E53.8 Deficiency of other specified B group vitamins (principal)

== ENCOUNTER → 2025-02-23 10:12 | Outpatient (BNVA) | payer BC, SELFPAY | PROVIDERS: PCP Internal Medicine; Visit Provider Internal Medicine | DX: E53.8 Deficiency of other specified B group vitamins (principal) | CPT/HCPCS: 96372; J3420 ==

== ENCOUNTER 2025-03-23 10:22 | Outpatient (AMB) | payer BC, SELFPAY ==
--- NOTE | 2025-03-23 10:31 | AM.OFFVISNUR ---
Intake Visit Reasons: B-12 shot Allergies THEODORE Inhibitors Adverse Reaction (Intermediate, Verified 01/26/25 10:31) cough losartan Adverse Reaction (Intermediate, Verified 01/26/25 10:31) Cough Nursing Note Pt came in for Vitamin B12 injection to right deltoid. Pt tolerated well. Office Meds cyanocobalamin (vitamin B-12) 1,000 mcg/mL injection solution Performing Provider: Yanely Mcgraw MD Performing Location: [facility] [place] [facility] Administered by: Mellissa Parker on 03/23/25 10:33 Dose Route Admin Location Dispensed Lot Number Expiration Date [facility] Jumbo Operator 1,000 mcg IM 1 mL [id number] 08/07/26 0463-7435-05 [facility] Assessment & Plan Assessment & Plan Orders: Orders AMB Vitamin B12 Injection Patient Supplied Today E53.8 - Deficiency of other specified B group vitamins Medications: New cyanocobalamin (vitamin B-12) 1,000 mcg IM ONCE 1 mL 0RF E53.8 - Deficiency of other specified B group vitamins Coding
== END 2025-03-23 10:31 | disposition home or self-care (01) ==
LOC: HO.HMCC 10:22
PROVIDERS: PCP Internal Medicine; Visit Provider Internal Medicine
DX: E53.8 Deficiency of other specified B group vitamins (principal)

== ENCOUNTER → 2025-03-23 10:22 | Outpatient (BNVA) | payer BC, SELFPAY | PROVIDERS: PCP Internal Medicine; Visit Provider Internal Medicine | DX: E53.8 Deficiency of other specified B group vitamins (principal) | CPT/HCPCS: 96372; J3420 ==

== ENCOUNTER 2025-04-25 10:13 | Outpatient (AMB) | payer BC, SELFPAY ==
--- NOTE | 2025-04-25 10:18 | AM.OFFVISNUR ---
Intake Visit Reasons: B12 Allergies THEODORE Inhibitors Adverse Reaction (Intermediate, Verified 01/26/25 10:31) cough losartan Adverse Reaction (Intermediate, Verified 01/26/25 10:31) Cough Nursing Note Pt came in for Vitamin B12 injection to left deltoid. Pt tolerated well. Office Meds cyanocobalamin (vitamin B-12) 1,000 mcg/mL injection solution Performing Provider: Yanely Mcgraw MD Performing Location[place] [facility] [place] [facility] Administered by: Mellissa Parker on 04/25/25 10:20 Dose Route Admin Location Dispensed Lot Number Expiration Date [facility] House Visitor 1,000 mcg IM 1 mL [id number] 06/07/26 38310-484-05 [employer] Total Dispensed Waste 1 mL 0 % Assessment & Plan Assessment & Plan Orders: Orders AMB Vitamin B12 Injection Patient Supplied Today E53.8 - Deficiency of other specified B group vitamins Coding
--- OUTSIDE RECORDS SUMMARY | 2025-04-25 11:02 | XMS_ITS | Encounter Summary ---
Author Organization [facility] Address [address] [place] [address] Care Team Providers Care Life Skills Trainer Name Role Phone Carina Rush DO Primary Care Pro vider Unavailable Carina Rush DO Unavailable Unavailable Jose Ozuna MD Unavailable [phone] Gerri Arriaza NP Unavailable [phone] Yanely Mcgraw MD Primary Care Provider Unavaila ble Encounter Details Date Type Department Care Team Description 03/23/2015 Orders Only Adult Medicine [address] [address] Carina Rush DO Social History Tobacco Use [...] on filedocumented in this encounter Care Teams Life Skills Trainer Relationship Specialty Start Date End Date Carina Rush DO PCP - General Internal Medicine 10/18/14 06/27/21 Yanely Mcgraw MD [address] [place] [address] [address] [place] [address] PCP - General Internal Medicine 06/28/21 Carina Rush DO Internal Medicine 04/06/14 07/06/24 Jose Ozuna MD [address] [place] [address] [address] [place] [address] Well Puller Cardiovascular Disease 10/15/20 Gerri Arriaza NP [address] [place] [address] [address] [place] [address] Nurse Practitioner Cardiology 10/15/20 documented as of this encounter
--- OUTSIDE RECORDS SUMMARY | 2025-04-25 11:02 | XMS_ITS | Clinical Summary ---
Author Organization [address] [place] [address] Address [address] [place] [address] Phone Care Team Providers Care Supervisor Farm Equipment Maintenance Name Role Phone Yanely Mcgraw MD Primary Care Provider [phone] Allergies Active Allergy Reactions Criticality Noted Date [...] and the less than 1% risk for [place], stroke or . He agrees to proceed [...] Idiopathic urticaria 02/15/2015 Vitamin B12 deficiency 02/15/2015 Immunizations Name Administration Dates Next Due Tdap [...] (1 of 2) 2010 Depression Screening 09/27/2022 Social Influencers of Health Screening 09/27/2022 Hypertension/CHF/CAD Annual BMP Blood Test 09/28/2022 02/28/2021 COVID-19 Vaccine (2 - 2023-2 5 season) 2024 07/06/2021 Falls Risk Assessment 2025 Influenza Vaccine (#1) 2025 Cholesterol Screening (Lipid Panel) 02/28/2026 02/28/2021 DTaP,Tdap,and Td Vaccines (2 - Td or Tdap) 06/30/2026 06/30/2016 Colorectal Cancer Screening: Colonoscopy 08/17/2027 08/17/2017 RSV Immunization Adult Patie nts (1 - 1-dose 75+ series) 2035 Hepatitis C Screening Completed 06/30/2016 Abdominal Aortic Aneurysm (A AA) Screen Completed 08/09/2018 HIB Vaccines Aged Out No longer eligi [...] to 49 Years) Aged Out No longer eligi ble based on patient's age to complete this topic RSV Immunization Patients Un eobnie 20 months Aged Out No longer eligible b ased on patient's age to complete this topic Varicella Vaccines Aged Out No longer eligible based on patient's age to complete this topic Procedures Procedure Name Priority Date/Time Associated Diagnosis Comments ANNUAL BMP BLOOD TEST Routine 02/28/2021 LIPID PANEL Routine 02/28/2021 US ABDOMINAL AORTA REAL TIME SCREEN STUDY AAA Routine 08/09/2018 7:49 AM EDT Encounter for general adult medical examination without abnormal findings COLONOSCOPY Routine 08/17/2017 HEPATITIS C SCREENING Routine 06/30/2016 from Last 3 Months or Most Recently Relevant to Health Maintenance Results * Annual BMP Blood Test (02/28/2021) Annual BMP Blood Test Abstracted us Historical Provider HEALTH MAINTENANCE Final Result * Lipid panel (02/28/2021) Pathologist [facility] LDL/HDL Ratio 3 0 - 4 Triglycerides 85 0 - 150 mg/dL Cholesterol 130 0 - 200 mg/dL HDL 47 >=40 mg/dL LDL Cholesterol 66 0 - 100 mg/dL Blood Venous blood specimen / Unknown Result [facility] Provider LAB BLOOD ORDERABLES Meghna l Result * US ABDOMINAL AORTA REAL TIME SCREEN STUDY AAA (08/09/2018 7:49 AM EDT) Anatomical Region Laterality Modality Ultrasound 08/02/2018 9:28 AM EDT Narrative 08/09/2018 8:37 AM EDT Abdomen ultrasound: HISTORY: AAA screening Proximal abdominal aorta measures 2.0 cm and mid aorta 2.1 cm. Prominent bulging of the distal abdominal aorta just above the bifurcation measuring 2.4 cm in AP sagittal diameter. Common iliac arteries are prominent in appearance but within normal range measuring 1.4 cm in diameter. IMPRESSION: IMPRESSION: No evidence of AAA. 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 Procedure Note Jose Owens MD - 10/07/2022 Abdomen ultrasound: HISTORY: AAA screening Proximal abdominal aorta measures 2.0 cm and mid aorta 2.1 cm. Prominentbulging of the distal abdominal aorta just above the bifurcation measuring 2.4 cm in AP sagittaldiameter. Common iliac arteries are prominent in appearance but within normal rangemeasuring 1.4 cm in diameter. IMPRESSION: IMPRESSION: No evidence of AAA. Focal preaneurysmal dilatation distalabdominal aorta and common iliac arteries. Carina Vail DO [facility] [place] [place] US PROCEDURES Final Result * Colonoscopy (08/17/2017) Pathologist [facility] Colonoscopy No interpretation , abstracted Anatomical Region Laterality Modality Other Result [facility] Provider HEALTH MAINTENANCE Final Result * Hepatitis C Screening (06/30/2016) Pathologist [facility] Hepatitis C Screening Abstracted [facility] Provider HEALTH MAINTENANCE Final Result from Last 3 Months or Most Recently Relevant to Health Maintenance Insurance [facility] Care Teams Supervisor Farm Equipment Maintenance Relationship Specialty Start Date End Date Yanely Mcgraw MD [address] [place] [address] PCP - General Internal Medicine 10/03/24
--- OUTSIDE RECORDS SUMMARY | 2025-04-25 11:02 | XMS_ITS | Clinical Summary ---
Author Organization [facility] Facility Address [address] [place] [address] Care Team Providers Care Labor Relations Specialist Name Role Phone Unavailable Primary Care [...] ars (1 of 1 - PCV) 2010 Influenza Vaccine (#1) 2025 Hepatitis B Vaccine Aged Out No longe r eligible based on patient's age to complete this topic [place] [address] [facility]
== END 2025-04-25 10:19 | disposition home or self-care (01) ==
LOC: HO.HMCC 10:13
PROVIDERS: PCP Internal Medicine; Visit Provider Internal Medicine
DX: E53.8 Deficiency of other specified B group vitamins (principal)

== ENCOUNTER → 2025-04-25 10:13 | Outpatient (BNVA) | payer BC, SELFPAY | PROVIDERS: PCP Internal Medicine; Visit Provider Internal Medicine | DX: E53.8 Deficiency of other specified B group vitamins (principal) | CPT/HCPCS: 96372; J3420 ==

== ENCOUNTER 2025-05-23 09:52 | Outpatient (AMB) | payer BC, SELFPAY ==
--- OUTSIDE RECORDS SUMMARY | 2025-05-23 10:17 | XMS_ITS | Encounter Summary ---
Author Organization [facility] Address [address] [place] [address] Care Team Providers Care Psych Arnp Name Role Phone Carina Rush DO Primary Care Pro vider Unavailable Carina Rush DO Unavailable Unavailable Jose Ozuna MD Unavailable [phone] Gerri Arriaza NP Unavailable [phone] Yanely Mcgraw MD Primary Care Provider Unavaila ble Encounter Details Date Type Department Care Team Description 03/23/2015 Orders Only Adult Medicine [address] [address] Carina Rush DO Social History Tobacco Use [...] on filedocumented in this encounter Care Teams Psych Arnp Relationship Specialty Start Date End Date Carina Rush DO PCP - General Internal Medicine 10/18/14 06/27/21 Yanely Mcgraw MD [address] [place] [address] [address] [place] [address] PCP - General Internal Medicine 06/28/21 Carina Rush DO Internal Medicine 04/06/14 07/06/24 Jose Ozuna MD [address] [place] [address] [address] [place] [address] [employer] Cardiovascular Disease 10/15/20 Gerri Arriaza NP [address] [place] [address] [address] [place] [address] Nurse Practitioner Cardiology 10/15/20 documented as of this encounter
--- OUTSIDE RECORDS SUMMARY | 2025-05-23 10:17 | XMS_ITS | Clinical Summary ---
Author Organization [address] [place] [address] Address [address] [place] [address] Phone Care Team Providers Care Shading Painter Name Role Phone Yanely Mcgraw MD Primary Care Provider [phone] Allergies Active Allergy Reactions Criticality Noted Date [...] and the less than 1% risk for [place], stroke or . He agrees to proceed [...] 2010 Zoster Vaccines (1 of 2) 2010 Social Influencers of Health Screening 09/27/2022 Hypertension/CHF/CAD Annual BMP Blood Test 09/28/2022 02/28/2021 COVID-19 Vaccine (2 - 2023-2 5 season) 2024 07/06/2021 Depression Screening 10/19/2024 Falls Risk Assessment 2025 Influenza Vaccine (#1) [...] BMP Blood Test Abstracted us Historical Provider MD HEALTH MAINTENANCE Final Result * Lipid panel (02/28/2021) LDL/HDL Ratio 3 0 - 4 Triglycerides 85 0 - 150 mg/dL Cholesterol 130 0 - 200 mg/dL HDL 47 >=40 mg/dL LDL Cholesterol 66 0 - 100 mg/dL Blood Venous blood specimen / Unknown Result [facility] Historical Provider LAB BLOOD ORDERABLES Meghna l [...] and common iliac arteries. Carina Vail DO [facility] US PROCEDURES Final Result * Colonoscopy (08/17/2017) Colonoscopy No interpretation , abstracted Anatomical Region Laterality Modality Other Result [facility] Historical Provider HEALTH MAINTENANCE Final Result * Hepatitis C Screening (06/30/2016) Hepatitis C Screening Abstracted Historical Provider HEALTH MAINTENANCE Final Result from Last 3 Months or Most Recently Relevant to Health Maintenance Insurance [employer] [id number] [facility] Care Teams Shading Painter Relationship Specialty Start Date End Date Yanely Mcgraw MD [address] [facility] [place] [phone] PCP - General Internal Medicine 10/03/24
--- OUTSIDE RECORDS SUMMARY | 2025-05-23 10:17 | XMS_ITS | Clinical Summary ---
Author Organization [facility] Facility Address [address] [place] [address] Care Team Providers Care Timber Rider Name Role Phone Unavailable Primary Care Provider [...] patient's age to complete this topic [place] [address] [facility]
--- NOTE | 2025-05-25 12:08 | AM.OFFVISNUR ---
Intake Visit Reasons: b12 Intake Note: Pt arrived for Monthly B-12 injection 05/23/25 Allergies THEODORE Inhibitors Adverse Reaction (Intermediate, Verified 01/26/25 10:31) cough losartan Adverse Reaction (Intermediate, Verified 01/26/25 10:31) Cough Office Meds cyanocobalamin (vitamin B-12) 1,000 mcg/mL injection solution Performing Provider: Yanely Mcgraw MD [place] [facility] [place] Administered by: Lisa Graham RN on 05/23/25 10:00 Dose Route Admin Location Dispensed Lot Number Expiration Date [facility] Laboratory Coordinator 1,000 mcg IM left deltoid 1 mL [id number] 05/19/26 78242-405-46 [employer] Total Dispensed Waste 1 mL 0 % Comments: Pt supplied Assessment & Plan Assessment & Plan Orders: Orders AMB Vitamin B12 Injection Patient Supplied 05/23/25 E53.8 - Deficiency of other specified B group vitamins Coding
== END 2025-05-23 09:55 | disposition home or self-care (01) ==
LOC: HO.HMCC 09:52
PROVIDERS: PCP Internal Medicine; Visit Provider Internal Medicine
DX: E53.8 Deficiency of other specified B group vitamins (principal)

== ENCOUNTER → 2025-05-23 09:52 | Outpatient (BNVA) | payer BC, SELFPAY | PROVIDERS: PCP Internal Medicine; Visit Provider Internal Medicine | DX: E53.8 Deficiency of other specified B group vitamins (principal) | CPT/HCPCS: 96372; J3420 ==

== ENCOUNTER 2025-07-03 10:04 | Outpatient (AMB) | payer BC, SELFPAY ==
--- NOTE | 2025-07-03 10:14 | AM.OFFVISNUR ---
Intake Visit Reasons: B-12 shot Intake Note: Pt arrived for monthly B-12 injection Allergies THEODORE Inhibitors Adverse Reaction (Intermediate, Verified 01/26/25 10:31) cough losartan Adverse Reaction (Intermediate, Verified 01/26/25 10:31) Cough Office Meds cyanocobalamin (vitamin B-12) 1,000 mcg/mL injection solution Performing Provider: Yanely Mcgraw MD Performing Location[place] [facility] Administered by: Lisa Graham RN on 07/03/25 10:15 Dose Route Admin Location Dispensed Lot Number Expiration Date [facility] Seismograph Supervisor 1,000 mcg IM Right deltoid 1 mL [id number] 05/19/26 26090-371-47 [employer] Total Dispensed Waste 1 mL 0 % Comments: Pt supplied Assessment & Plan Assessment & Plan Orders: Orders AMB Vitamin B12 Injection Patient Supplied Today E53.8 - Deficiency of other specified B group vitamins Coding
--- OUTSIDE RECORDS SUMMARY | 2025-07-03 12:37 | XMS_ITS | Encounter Summary ---
Author Organization [facility] Address [address] [email or web address] [address] [place] [address] Phone Care Team Providers Care Chief Warden Name Role Phone Unavailable Primary Care Provider Unavailabl e Encounter Details Date Type Department Care Team (Late st Contact Info) Description 01/28/2021 Orders Only [facility] [address] [facility] [[email or web address] [address] [place] [phone] Shabbir Menezes MD [address] [facility] [address] [place] [phone] Primary hypertension Social History Tobacco Use Types [...]
--- OUTSIDE RECORDS SUMMARY | 2025-07-03 12:37 | XMS_ITS | Encounter Summary ---
Author Organization [facility] Address [address] [place] [address] Care Team Providers Care Automobile Repair Service Estimator Name Role Phone Carina Rush DO Primary Care Pro vider Unavailable Carina Rush DO Unavailable Unavailable oJse Ozuna MD Unavailable [phone] Gerri Arriaza NP Unavailable [phone] Yanely Mcgraw MD Primary Care Provider Unavaila ble Encounter Details Date Type Department Care Team Description 01/08/2015 Orders Only Adult Medicine [address] [address] Carina Rush DO HTN (hypertension) (Primary Dx) [...] hypertension documented in this encounter Care Teams Automobile Repair Service Estimator Relationship Specialty Start Date End Date Carina Rush DO PCP - General Internal Medicine 10/18/14 06/27/21 Yanely Mcgraw MD [address] [place] [address] [address] [place] [address] PCP - General Internal Medicine 06/28/21 Carina Rush DO Internal Medicine 04/06/14 07/06/24 Joes Ozuna MD [address] [place] [address] [address] [place] [address] Lockstitch Binder Cardiovascular Disease 10/15/20 Gerri Arriaza NP [address] [place] [address] DRIVE [address] [place] [address] Nurse Practitioner Cardiology 10/15/20 documented as of this encounter
--- OUTSIDE RECORDS SUMMARY | 2025-07-03 12:37 | XMS_ITS | Encounter Summary ---
Author Organization [facility] Address [address] [place] [address] Care Team Providers Care Hat Sizer Name Role Phone Yanely Mcgraw MD Primary Care Provider Unavaila Carina Nolen DO Primary Care Pro vider Unavailable Carina Rush DO Unavailable Unavailable Jose Ozuna MD Unavailable [phone] Gerri Arriaza NP Unavailable [phone] Yanely Mcgraw MD Primary Care Provider Unavailjacob aceves Encounter Details Date Type Department Care Team Description 09/19/2013 Release of Information Medical Records [address] [place] [address] Abstract, Provider Social History Tobacco Use Types [...] on filedocumented in this encounter Care Teams Hat Sizer Relationship Specialty Start Date End Date Yanely Mcgraw MD PCP - General Internal Medicine 09/12/13 10/17/14 Carina Rush DO PCP - General Internal Medicine 10/18/14 06/27/21 Yanely Mcgraw MD PCP - General Internal Medicine 06/28/21 Carina Rush DO Internal Medicine 04/06/14 07/06/24 Jose Ozuna MD [address] [place] [address] [address] [place] [address] Paper Bag Inspector Cardiovascular Disease 10/15/20 Gerri Arriaza NP [address] [place] [address] [address] [place] [address] Nurse Practitioner Cardiology 10/15/20 documented as of this encounter
--- OUTSIDE RECORDS SUMMARY | 2025-07-03 12:37 | XMS_ITS | Encounter Summary ---
Author Organization [facility] Address [address] [place] [address] Care Team Providers Care Grinder Hand Name Role Phone Carina Rush DO Primary Care Pro vider Unavailable Carina Rush DO Unavailable Unavailable Jose Ozuna MD Unavailable [phone] Gerri Arriaza NP Unavailable [phone] Yanely Mcgraw MD Primary Care Provider Unavaila ble Encounter Details Date Type Department Care Team Description 09/01/2019 Telephone Adult [address] [address] Carina Rush DO Social History Tobacco Use [...] on filedocumented in this encounter Care Teams Grinder Hand Relationship Specialty Start Date End Date Carina Rush DO PCP - General Internal Medicine 10/18/14 06/27/21 Yanely Mcgraw MD [address] [place] [address] [address] [place] [address] PCP - General Internal Medicine 06/28/21 Carina Rush DO Internal Medicine 04/06/14 07/06/24 Jose Ozuna MD [address] [place] [address] [address] [place] [address] Central Office Operator Supervisor Cardiovascular Disease 10/15/20 Gerri Arriaza NP [address] [place] [address] [address] [place] [address] Nurse Practitioner Cardiology 10/15/20 documented as of this encounter
--- OUTSIDE RECORDS SUMMARY | 2025-07-03 12:37 | XMS_ITS | Clinical Summary ---
Author Organization [address] [place] [address] Address [address] [place] [address] Phone Care Team Providers Care Mid Wife Name Role Phone Yanely Mcgraw MD Primary Care Provider [phone] Allergies Active Allergy Reactions Criticality Noted Date [...] Hypertension/CHF/CAD Annual BMP Blood Test 09/28/2022 02/28/2021 Depression Screening 10/19/2024 Falls Risk Assessment 2025 COVID-19 Vaccine (2 - 2024-2 6 season) 2025 07/06/2021 Influenza Vaccine (#1) 2025 Cholesterol Screening (Lipid [...] Blood Venous blood specimen / Unknown Result [facility] Historical Provider LAB BLOOD ORDERABLES Meghna l [...] and common iliac arteries. Carina Vail DO [facility] US PROCEDURES Final Result * Colonoscopy (08/17/2017) Colonoscopy No interpretation , abstracted Anatomical Region Laterality Modality Other Result [facility] Historical Provider HEALTH MAINTENANCE Final Result * Hepatitis C Screening (06/30/2016) Hepatitis C Screening Abstracted Historical Provider HEALTH MAINTENANCE Final Result from Last 3 Months or Most Recently Relevant to Health Maintenance Insurance [employer] [id number] [facility] Care Teams Mid Wife Relationship Specialty Start Date End Date Yanely Mcgraw MD [address] [place] [phone] PCP - General Internal Medicine 10/03/24
--- OUTSIDE RECORDS SUMMARY | 2025-07-03 12:37 | XMS_ITS | Encounter Summary ---
Author Organization [facility] Address [address] [place] [address] Care Team Providers Care Assistant Manager Pt Name Role Phone Carina Rush DO Primary Care Pro vider Unavailable Carina Rush DO Unavailable Unavailable Jose Ozuna MD Unavailable [phone] Gerri Arriaza NP Unavailable Yanely Mcgraw MD Primary Care Provider Unavaila ble Encounter Details Date Type Department Care Team Description 09/12/2019 Underground Utility Locator Report Medical Records [address] [place] [address] [facility] Social History Tobacco Use Types [...] on filedocumented in this encounter Care Teams Assistant Manager Pt Relationship Specialty Start Date End Date Carina Rush DO PCP - General Internal Medicine 10/18/14 06/27/21 Yanely Mcgraw MD [address] [place] [address] [address]IVE [address] [place] [address] PCP - General Internal Medicine 06/28/21 Carina Rush DO Internal Medicine 04/06/14 07/06/24 Jose Ozuna MD [address] [place] [address] [address]IVE [address] [place] [address] Bale Sewer Cardiovascular Disease 10/15/20 Gerri Arriaza NP [address] [place] [address] [address] [place] [address] Nurse Practitioner Cardiology 10/15/20 documented as of this encounter
--- OUTSIDE RECORDS SUMMARY | 2025-07-03 12:37 | XMS_ITS | Encounter Summary ---
Author Organization [facility] Address [address] [place] [address] Care Team Providers Care Network Operations Project Manager Name Role Phone Carina Rush DO Primary Care Pro vider Unavailable Carina Rush DO Unavailable Unavailable Jose Ozuna MD Unavailable [phone] Gerri Arriaza NP Unavailable [phone] Yanely Mcgraw MD Primary Care Provider Unavaila ble Encounter Details Date Type Department Care Team Description 04/26/2019 Family Service Caseworker Report Medical Records [address] [place] [address] Jose Ozuna MD [address] [place] [address] [address] [place] [address] Social History Tobacco Use Types Packs/Day Years [...] on filedocumented in this encounter Care Teams Network Operations Project Manager Relationship Specialty Start Date End Date Carina Rush DO PCP - General Internal Medicine 10/18/14 06/27/21 Yanely Mcgraw MD [address] [place] [address] [address] [place] [address] PCP - General Internal Medicine 06/28/21 Carina Rush DO Internal Medicine 04/06/14 07/06/24 Jose Ozuna MD [address] [place] [address] [address] [place] [address] Social Services Counselor Cardiovascular Disease 10/15/20 Gerri Arriaza NP [address] [place] [address] [address] [place] [address] Nurse Practitioner Cardiology 10/15/20 documented as of this encounter
--- OUTSIDE RECORDS SUMMARY | 2025-07-03 12:37 | XMS_ITS | Encounter Summary ---
Author Organization [facility] Address [address] [place] [address] Care Team Providers Care Solar Crew Member Name Role Phone Carina Rush DO Primary Care Pro vider Unavailable Carina Rush DO Unavailable Unavailable Jose Ozuna MD Unavailable [phone] Gerri Arriaza NP Unavailable [phone] Yanely Mcgraw MD Primary Care Provider Unavaila ble Reason for Visit * Reason Comments E-prescribe Rx Request Encounter Details Date Type Department Care Team Description 05/03/2019 Refill Adult Medicine [address] [address] Dorcas Rueda NP E-prescribe Rx Request Social [...] Payor: HARINI/PPO POS / Plan: PPO $10 [place] [id number] / ProductType: PPO [id number] documented in this encounter Plan of Treatment Not on file documented as of this encounter Visit Diagnoses Not on filedocumented in this encounter Care Teams Solar Crew Member Relationship Specialty Start Date End Date Carina Rush DO PCP - General Internal Medicine 10/18/14 06/27/21 Yanely Mcgraw MD [address] [place] [address] [address] [place] [address] PCP - General Internal Medicine 06/28/21 Carina Rush DO Internal Medicine 04/06/14 07/06/24 Jose Ozuna MD [address] [place] [address] [address] [place] [address] Machine Stripper Cardiovascular Disease 10/15/20 Gerri Arriaza NP [address] [place] [address] [address] [place], [place] [phone] Nurse Practitioner Cardiology 10/15/20 documented as of this encounter
--- OUTSIDE RECORDS SUMMARY | 2025-07-03 12:37 | XMS_ITS | Encounter Summary ---
Author Organization [facility] Address [facility] [place] [address] Care Team Providers Care Adhesive Bandage Making Operator Name Role Phone Jose Ozuna MD Unavailable [phone] Gerri Arriaza NP Unavailable [phone] Yanely Mcgraw MD Primary Care Provider Unavaila ble Reason for Visit * Reason Onset Date Comments Call From Office 07/14/2024 Encounter Details Date Type Department Care Team Description 07/14/2024 Telephone Cardio [facility] [address] [place] [address] [address] [place] [address] Jose Ozuna MD [address] [place] [address] [address] [place], [place] [phone] Call From Md Office Social History Tobacco [...] - 07/14/2024 11:41 AM EDT Rayna from [facility] called requesting clearance for a colonoscopy that has not been scheduled until patient is cleared. Rayna stated that the last office note can be addended and faxed to [phone]. Raynacan be reached at [phone]. documented in this encounter Plan of Treatment Not on file documented as of this encounter Visit Diagnoses Not on filedocumented in this encounter Care Teams Adhesive Bandage Making Operator Relationship Specialty Start Date End Date Yanely Mcgraw MD [address] [place] [address] [place] [address] PCP - General Internal Medicine 06/28/21 Jose Ozuna MD [address] [place] [address] [place] [address] Cooler Operator Cardiovascular Disease 10/15/20 Gerri Arriaza NP [address] [place] [address] [place] [address] Nurse Practitioner Cardiology 10/15/20 documented as of this encounter
--- OUTSIDE RECORDS SUMMARY | 2025-07-03 12:37 | XMS_ITS | Encounter Summary ---
Author Organization [facility] Address [address] [place] [address] Care Team Providers Care Power Lineman Technician Name Role Phone Carina Rush DO Primary Care Pro vider Unavailable Carina Rush DO Unavailable Unavailable Jose Ozuna MD Unavailable [phone] Gerri Arriaza NP Unavailable Yaenly Mcgraw MD Primary Care Provider Unavaila ble Encounter Details Date Type Department Care Team Description 03/22/2020 Orders Only Adult Medicine [address] [address] Carina Rush DO Snores (Primary Dx); Witnessed [...] apnea documented in this encounter Care Teams Power Lineman Technician Relationship Specialty Start Date End Date Carina Rush DO PCP - General Internal Medicine 10/18/14 06/27/21 Yanely Mcgraw MD [address] [place] [address] [place] [address] PCP - General Internal Medicine 06/28/21 Carina Rush DO Internal Medicine 04/06/14 07/06/24 Jose Ozuna MD [address] [place] [address] [place] [address] Financial Dealers Cardiovascular Disease 10/15/20 Gerri Arriaza NP [address] [place] [address] [address] [place] [address] Nurse Practitioner Cardiology 10/15/20 documented as of this encounter
--- OUTSIDE RECORDS SUMMARY | 2025-07-03 12:37 | XMS_ITS | Encounter Summary ---
Author Organization [facility] Address [address] [place] [address] Care Team Providers Care Associate School Psychologist Name Role Phone Carina Rush DO Primary Care Pro vider Unavailable Carina Rush DO Unavailable Unavailable Jose Ozuna MD Unavailable [phone] Gerri Arriaza NP Unavailable [phone] Yanely Mcgraw MD Primary Care Provider Unavaila ble Encounter Details Date Type Department Care Team Description 03/23/2015 Orders Only Adult Medicine [address] [address] Carina Rush DO Social History Tobacco Use [...] on filedocumented in this encounter Care Teams Associate School Psychologist Relationship Specialty Start Date End Date Carina Rush DO PCP - General Internal Medicine 10/18/14 06/27/21 Yanely Mcgraw MD [address] [place] [address] [address] [place] [address] PCP - General Internal Medicine 06/28/21 Carina Ruhs DO Internal Medicine 04/06/14 07/06/24 Jose Ozuna MD [address] [place] [address] [address] [place] [address] Correction Officer Supervisor Cardiovascular Disease 10/15/20 Gerri Arriaza NP [address] [place] [address] [address] [place] [address] Nurse Practitioner Cardiology 10/15/20 documented as of this encounter
--- OUTSIDE RECORDS SUMMARY | 2025-07-03 12:37 | XMS_ITS | Clinical Summary ---
Author Organization [facility] Address [address] [place] [address] Care Team Providers Care Cardiologist Name Role Phone Unavailable Primary Care Provider [...] patient's age to complete this topic Insurance [address] [place] [address] [facility]
--- OUTSIDE RECORDS SUMMARY | 2025-07-03 12:37 | XMS_ITS | Encounter Summary ---
Author Organization [facility] Address [facility] [place] [address] Care Team Providers Care Box Covering Machine Operator Name Role Phone Jose Ozuna MD Unavailable [phone] Gerri Arriaza NP Unavailable [phone] Yanely Mcgraw MD Primary Care Provider Unavaila ble Reason for Visit * Reason Onset Date Comments REFERRAL 07/13/2024 Encounter Details Date Type Department Care Team Description 07/13/2024 Telephone Cardio [facility] [address] [place] [address] [address] [place] [address] Jose Ozuna MD [address] [place] [address] [address] [place], [place] [id number] REFERRAL Social History Tobacco Use Types Packs/Day [...] referral, last office note, and demo to [facility] Medicine [phone]. documented in this encounter Plan of Treatment Not on file documented as of this encounter Visit Diagnoses Not on filedocumented in this encounter Care Teams Box Covering Machine Operator Relationship Specialty Start Date End Date Yanely Mcgraw MD [address] [place] [address] [address] [place] [address] PCP - General Internal Medicine 06/28/21 Jose Ozuna MD [address] [place] [address] [address] [place] [address] Hematology Supervisor Cardiovascular Disease 10/15/20 Gerri Arriaza NP [address] [place] [address] [address] [place] [address] Nurse Practitioner Cardiology 10/15/20 documented as of this encounter
--- OUTSIDE RECORDS SUMMARY | 2025-07-03 12:38 | XMS_ITS | Encounter Summary ---
Author Organization [facility] Address [address] [place] [address] Care Team Providers Care Levi Maker Name Role Phone Carina Rush DO Primary Care Pro vider Unavailable Carina Rush DO Unavailable Unavailable Jose Ozuna MD Unavailable [phone] Gerri Arriaza NP Unavailable [phone] Yanely Mcgraw MD Primary Care Provider Unavaila ble Encounter Details Date Type Department Care Team Description 10/26/2020 Um Specialist Report Medical Records [address] [place] [address] Gerri Arriaza, ALMA [address] [place] [address] [place] [address] Social History Tobacco Use Types Packs/Day Years [...] on filedocumented in this encounter Care Teams Levi Maker Relationship Specialty Start Date End Date Carina Rush DO PCP - General Internal Medicine 10/18/14 06/27/21 Yanely Mcgraw MD [address] [place] [address] [place] [address] PCP - General Internal Medicine 06/28/21 Carina Rush DO Internal Medicine 04/06/14 07/06/24 Jose Ozuna MD [address] [place] [address] [place] [address] Medical Sonographer Cardiovascular Disease 10/15/20 Gerri Arriaza NP [address] [place] [address] [place] [address] Nurse Practitioner Cardiology 10/15/20 documented as of this encounter
--- OUTSIDE RECORDS SUMMARY | 2025-07-03 12:38 | XMS_ITS | Encounter Summary ---
Author Organization [facility] Address [address] [place] [address] Care Team Providers Care Traffic Law Attorney Name Role Phone Carina Rush DO Primary Care Pro vider Unavailable Carina Rush DO Unavailable Unavailable Jose Ozuna MD Unavailable [phone] Gerri Arriaza NP Unavailable [phone] Yanely Mcgraw MD Primary Care Provider Unavaila ble Encounter Details Date Type Department Care Team Description 10/06/2016 Blaster Helper Report Medical Records [address] [place] [address] Niko Aceves MD Social History Tobacco Use [...] on filedocumented in this encounter Care Teams Traffic Law Attorney Relationship Specialty Start Date End Date Carina Rush DO PCP - General Internal Medicine 10/18/14 06/27/21 Yanely Mcgraw MD [address] [place] [address] [address] [place] [address] PCP - General Internal Medicine 06/28/21 Carina Rush DO Internal Medicine 04/06/14 07/06/24 Jose Ozuna MD [address] [place] [address] [address] [place] [address] Serging Machine Operator Automatic Cardiovascular Disease 10/15/20 Gerri Arriaza NP [address] [place] [address] [address]IVE [address] [place] [address] Nurse Practitioner Cardiology 10/15/20 documented as of this encounter
--- OUTSIDE RECORDS SUMMARY | 2025-07-03 12:38 | XMS_ITS | Encounter Summary ---
Author Organization [facility] Address [address] [place] [address] Care Team Providers Care Electrotyper Name Role Phone Carina Rush DO Primary Care Pro vider Unavailable Carina Rush DO Unavailable Unavailable Jose Ozuna MD Unavailable [phone] Gerri Arriaza NP Unavailable [phone] Yanely Mcgraw MD Primary Care Provider Unavaila ble Encounter Details Date Type Department Care Team Description 10/26/2020 Hospital Medical Records [address] [place] [address] Akash Collins MD [address] [facility] [address] [place] [address] Social History Tobacco Use Types Packs/Day Years [...] on filedocumented in this encounter Care Teams Electrotyper Relationship Specialty Start Date End Date Carina Rush DO PCP - General Internal Medicine 10/18/14 06/27/21 Yanely Mcgraw MD [address] [place] [address] [place] [address] PCP - General Internal Medicine 06/28/21 Carina Rush DO Internal Medicine 04/06/14 07/06/24 Jose Ozuna MD [address] [place] [address] [address] [place] [address] Director Of Search Engine Optimization Cardiovascular Disease 10/15/20 Gerri Arriaza NP [address] [place] [address] [address] [place] [address] Nurse Practitioner Cardiology 10/15/20 documented as of this encounter
--- OUTSIDE RECORDS SUMMARY | 2025-07-03 12:38 | XMS_ITS | Encounter Summary ---
Author Organization [facility] Address [address] [place] [address] Care Team Providers Care [employer] Compliance Internship Name Role Phone Carina Rush DO Primary Care Pro vider Unavailable Carina Rush DO Unavailable Unavailable Jose Ozuna MD Unavailable [phone] Gerri Arriaza NP Unavailable [phone] Yanely Mcgraw MD Primary Care Provider Unavaila ble Encounter Details Date Type Department Care Team Description 02/22/2021 Release of Information Medical Records [address] [place] [address] Abstract, Provider Social History Tobacco Use Types [...] on filedocumented in this encounter Care Teams [employer] Compliance Internship Relationship Specialty Start Date End Date Carina Rush DO PCP - General Internal Medicine 10/18/14 06/27/21 Yanely Mcgraw MD [address] [place] [address] [address] [place] [address] PCP - General Internal Medicine 06/28/21 Carina Rush DO Internal Medicine 04/06/14 07/06/24 Jose Ozuna MD [address] [place] [address] [address] [place] [address] Columnist Cardiovascular Disease 10/15/20 Gerri Arriaza NP [address] [place] [address] [address] [place] [address] Nurse Practitioner Cardiology 10/15/20 documented as of this encounter
--- OUTSIDE RECORDS SUMMARY | 2025-07-03 12:38 | XMS_ITS | Encounter Summary ---
Author Organization [facility] Address [address] [place] [address] Care Team Providers Care Health Care Law Specialist Name Role Phone Carina Rush DO Primary Care Pro vider Unavailable Carina Rush DO Unavailable Unavailable Jose Ozuna MD Unavailable [phone] Gerri Arriaza NP Unavailable [phone] Yanely Mcgraw MD Primary Care Provider Unavaila ble Encounter Details Date Type Department Care Team Description 07/09/2016 Orders Only Adult Medicine [address] [address] Carina Rush DO B12 deficiency (Primary Dx) [...] deficiencies documented in this encounter Care Teams Health Care Law Specialist Relationship Specialty Start Date End Date Carina Rush DO PCP - General Internal Medicine 10/18/14 06/27/21 Yanely Mcgraw MD [address] [place] [address] [address] [place] [address] PCP - General Internal Medicine 06/28/21 Carina Rush DO Internal Medicine 04/06/14 07/06/24 Jose Ozuna MD [address] [place] [address] [address] [place] [address] Government Relations Analyst Cardiovascular Disease 10/15/20 Gerri Arriaza NP [address] [place] [address] [address] [place] [address] Nurse Practitioner Cardiology 10/15/20 documented as of this encounter
--- OUTSIDE RECORDS SUMMARY | 2025-07-03 12:38 | XMS_ITS | Encounter Summary ---
Author Organization [facility] Address [address] [place] [address] Care Team Providers Care Control Clerk Repairs Name Role Phone Carina Rush DO Primary Care Pro vider Unavailable Carina Rush DO Unavailable Unavailable Jose Ozuna MD Unavailable [phone] Gerri Arriaza NP Unavailable [phone] Yanely Mcgraw MD Primary Care Provider Unavaila ble Encounter Details Date Type Department Care Team Description 11/06/2020 Hospital Medical Records [address] [place] [address] Mariah Lemons Social History Tobacco Use Types Packs/Day Years Used Date Smoking Tobacco: Former Cigarettes 0.5 Q uit: 2007 Smokeless Tobacco: Never Alcohol Use Standard Drinks/Week [...] on filedocumented in this encounter Care Teams Control Clerk Repairs Relationship Specialty Start Date End Date Carina Rush DO PCP - General Internal Medicine 10/18/14 06/27/21 Yanely Mcgraw MD [address] [place] [address] [address] [place] [address] PCP - General Internal Medicine 06/28/21 Carina Rush DO Internal Medicine 04/06/14 07/06/24 Jose Ozuna MD [address] [place] [address] [address] [place] [address] Brass Finisher Cardiovascular Disease 10/15/20 Gerri Arriaza NP [address] [place] [address] [address] [place] [address] Nurse Practitioner Cardiology 10/15/20 documented as of this encounter
--- OUTSIDE RECORDS SUMMARY | 2025-07-03 12:38 | XMS_ITS | Encounter Summary ---
Author Organization [facility] Address [address] [place] [address] Care Team Providers Care Java Web Developer Name Role Phone Carina Rush DO Primary Care Pro vider Unavailable Carina Rush DO Unavailable Unavailable Jose Ozuna MD Unavailable Gerri Arriaza NP Unavailable [phone] Yanely Mcgraw MD Primary Care Provider Unavaila ble Encounter Details Date Type Department Care Team Description 10/25/2020 Hospital Medical Records [address] [place] [address] Social History Tobacco Use Types Packs/Day Years [...] on filedocumented in this encounter Care Teams Java Web Developer Relationship Specialty Start Date End Date Carina Rush DO PCP - General Internal Medicine 10/18/14 06/27/21 Yanely Mcgraw MD [address] [place] [address] [address] [place] [address] PCP - General Internal Medicine 06/28/21 Carina Rush, Internal Medicine 04/06/14 07/06/24 Jose Ozuna MD [address] [place] [address] [address] [place] [address] Assistant Facility Manager Cardiovascular Disease 10/15/20 Gerri Arriaza NP [address] [place] [address] [address] [place] [address] Nurse Practitioner Cardiology 10/15/20 documented as of this encounter
--- OUTSIDE RECORDS SUMMARY | 2025-07-03 12:38 | XMS_ITS | Encounter Summary ---
Author Organization [facility] Address [address] [place] [address] Care Team Providers Care Scrap Piler Name Role Phone Carina Rush DO Primary Care Pro vider Unavailable Carina Rush DO Unavailable Unavailable Jose Ozuna MD Unavailable [phone] Gerri Arriaza NP Unavailable [phone] Yanely Mcgraw MD Primary Care Provider Unavaila ble Encounter Details Date Type Department Care Team Description 07/27/2019 Records Management Engineer Report Medical Records [address] [place] [address] Jose Ozuna MD [address] [place] [address] [address] [place] [address] Social History Tobacco Use Types Packs/Day Years [...] on filedocumented in this encounter Care Teams Scrap Piler Relationship Specialty Start Date End Date Carina Rush DO PCP - General Internal Medicine 10/18/14 06/27/21 Yanely Mcgraw MD [address] [place] [address] [address] [place] [address] PCP - General Internal Medicine 06/28/21 Carina Rush DO Internal Medicine 04/06/14 07/06/24 Jose Ozuna MD [address] [place] [address] [address] [place] [address] Dynamotor Repairer Cardiovascular Disease 10/15/20 Gerri Arriaza NP [address] [place] [address] [address] [place] [address] Nurse Practitioner Cardiology 10/15/20 documented as of this encounter
--- OUTSIDE RECORDS SUMMARY | 2025-07-03 12:38 | XMS_ITS | Encounter Summary ---
Author Organization [facility] Address [address] [place] [address] Care Team Providers Care Relay Man Name Role Phone Carina Rush DO Primary Care Pro vider Unavailable Carina Rush DO Unavailable Unavailable Jsoe Ozuna MD Unavailable [phone] Gerri Arriaza NP Unavailable [phone] Yanely Mcgraw MD Primary Care Provider Unavaila ble Reason for Visit * Reason Onset Date Comments refill request 03/19/2021 Encounter Details Date Type Department Care Team Description 03/19/2021 Refill Adult Medicine [address] [address] Carina Rush DO refill request Social History [...] THE PATIENT'S LAST APPOINTMENT IN ADULT MEDICINE? [id number] WHEN WAS THE LAST TIME THE PATIENT [...] Payor: HARINI/ROSEMARIE POS / Plan: PPO $10 [place] [id number] / ProductType: PPO [id number] documented in this encounter Plan of Treatment Not on file documented as of this encounter Visit Diagnoses Diagnosis Chest pain, unspecified type documented in this encounter Care Teams Relay Man Relationship Specialty Start Date End Date Carina Rush DO PCP - General Internal Medicine 10/18/14 06/27/21 Yanely Mcgraw MD [address] [place] [address] [place] [address] PCP - General Internal Medicine 06/28/21 Carina Rush DO Internal Medicine 04/06/14 07/06/24 Jose Ozuna MD [address] [place] [address] [place] [address] Video Operator Cardiovascular Disease 10/15/20 Gerri Arriaza NP [address] [place] [address] [place] [address] Nurse Practitioner Cardiology 10/15/20 documented as of this encounter
--- OUTSIDE RECORDS SUMMARY | 2025-07-03 12:38 | XMS_ITS | Encounter Summary ---
Author Organization [facility] Address [address] [place] [address] Care Team Providers Care Professor Computer Science Name Role Phone Carina Rush DO Primary Care Pro vider Unavailable Carina Rush DO Unavailable Unavailable Jose Ozuna MD Unavailable [phone] Gerri Arriaza NP Unavailable [phone] Yanely Mcgraw MD Primary Care Provider Unavaila ble Reason for Visit * Reason Onset Date Comments Provider Call Back 05/28/2017 Encounter Details Date Type Department Care Team Description 05/28/2017 Telephone Adult [address] [address] Carina Rush DO Provider Call Back Social [...] made to contact sons and pt (in Ghanaian) I will await patient calling back with [...] 11:53 AM EDT Pt does not speak indonesian, does not want to talk to me [...] consult some personal issues with. He speaks bengali only. Caller offered to speak with the nurse for assistance: NO Response: Patient offered to speak with nurse for assistance and patient agreed. Message forwarded to nurse. documented in this encounter Plan of Treatment Not on file documented as of this encounter Visit Diagnoses Not on filedocumented in this encounter Care Teams Professor Computer Science Relationship Specialty Start Date End Date Carina Rush DO PCP - General Internal Medicine 10/18/14 06/27/21 Yanely Mcgraw MD [address] [place] [address] [place] [address] PCP - General Internal Medicine 06/28/21 Carina Rush DO Internal Medicine 04/06/14 07/06/24 Jose Ozuna MD [address] [place] [address] [place] [address] Shirring Tender Cardiovascular Disease 10/15/20 Gerri Arriaza NP [address] [place] [address] [place] [address] Nurse Practitioner Cardiology 10/15/20 documented as of this encounter
--- OUTSIDE RECORDS SUMMARY | 2025-07-03 12:38 | XMS_ITS | Encounter Summary ---
Author Organization [facility] Address [address] [place] [address] Care Team Providers Care Employment Evaluator/Case Manager Name Role Phone Carina Rush DO Primary Care Pro vider Unavailable Carina Rush DO Unavailable Unavailable Jose Ozuna MD Unavailable [phone] Gerri Arriaza NP Unavailable [phone] Yanely Mcgraw MD Primary Care Provider Unavaila ble Reason for Referral * Radiology Services (Routine) - Closed Specialty Diagnoses / Procedures Referred By Josef hernandez Referred To Contact Radiology Diagnoses Family history of cerebral aneurysm Procedures MRI OF BRAIN AND FURTHER SEQUENCES W/WO CON Carina Rush DO Mri/[address] [address] Referral ID Status Reason Start Date Expiration Date V isits Requested Visits Authorized NO AUTH REQUIRED Closed 09/25/2016 09/25/2017 1 1 Encounter Details Date Type Department Care Team Description 08/22/2016 Orders Only Adult Medicine [address] [address] Carina Rush DO Family history of cerebral [...] diseases documented in this encounter Care Teams Employment Evaluator/Case Manager Relationship Specialty Start Date End Date Carnia Rush DO PCP - General Internal Medicine 10/18/14 06/27/21 Yanely Mcgraw MD [address] [place] [address] [address]IVE [address] [place] [address] PCP - General Internal Medicine 06/28/21 Carina Rush DO Internal Medicine 04/06/14 07/06/24 Jose Ozuna MD [address] [place] [address] [address]IVE [address] [place] [address] Central Office Repairer Supervisor Cardiovascular Disease 10/15/20 Gerri Arriaza NP [address] [place] [address] [address]IVE [address] [place] [address] Nurse Practitioner Cardiology 10/15/20 documented as of this encounter
--- OUTSIDE RECORDS SUMMARY | 2025-07-03 12:38 | XMS_ITS | Encounter Summary ---
Author Organization [facility] Address [address] [place] [address] Care Team Providers Care Painter Interior Finish Name Role Phone Carina Rush DO Primary Care Pro vider Unavailable Carina Rush DO Unavailable Unavailable Jose Ozuna MD Unavailable [phone] Gerri Arriaza NP Unavailable [phone] Yanely Mcgraw MD Primary Care Provider Unavaila ble Encounter Details Date Type Department Care Team Description 11/07/2020 Court Orderly Report Medical Records [address] [place] [address] Abstract, Provider Social History Tobacco Use Types [...] on filedocumented in this encounter Care Teams Painter Interior Finish Relationship Specialty Start Date End Date Carina Rush DO PCP - General Internal Medicine 10/18/14 06/27/21 Yanely Mcgraw MD [address] [place] [address] [address] [place] [address] PCP - General Internal Medicine 06/28/21 Carina Rush DO Internal Medicine 04/06/14 07/06/24 Jose Ozuna MD [address] [place] [address] [address] [place] [address] Fire Inspector Cardiovascular Disease 10/15/20 Gerri Arriaza NP [address] [place] [address] [address] [place] [address] Nurse Practitioner Cardiology 10/15/20 documented as of this encounter
--- OUTSIDE RECORDS SUMMARY | 2025-07-03 12:38 | XMS_ITS | Encounter Summary ---
Author Organization [facility] Address [address] [place] [address] Care Team Providers Care Pressure Testing Technician Name Role Phone Carina Rush DO Primary Care Pro vider Unavailable Carina Rush DO Unavailable Unavailable Jose Ozuna MD Unavailable [phone] Gerri Arriaza NP Unavailable [phone] Yanely Mcgraw MD Primary Care Provider Unavaila ble Reason for Visit * Reason Onset Date Comments Faxed Order 12/12/2020 Encounter Details Date Type Department Care Team Description 12/12/2020 Telephone Adult Medicine [address] [address] Carina Rush DO Faxed Order Social History [...] TO BE SIGN AND FAX BACK TO [phone]. documented in this encounter Plan of Treatment Not on file documented as of this encounter Visit Diagnoses Not on filedocumented in this encounter Care Teams Pressure Testing Technician Relationship Specialty Start Date End Date Carina Rush DO PCP - General Internal Medicine 10/18/14 06/27/21 Yanely Mcgraw MD [address] [place] [address] [place] [address] PCP - General Internal Medicine 06/28/21 Carina Rush DO Internal Medicine 04/06/14 07/06/24 Jose Ozuna MD [address] [place] [address] [address] [place] [address] Radiation Protection Technician Cardiovascular Disease 10/15/20 Gerri Arriaza NP [address] [place] [address] [address]IVE [address] [place] [address] Nurse Practitioner Cardiology 10/15/20 documented as of this encounter
--- OUTSIDE RECORDS SUMMARY | 2025-07-03 12:38 | XMS_ITS | Encounter Summary ---
Author Organization [facility] Address [address] [place] [address] Care Team Providers Care Hatchery Helper Name Role Phone Carina Rush DO Primary Care Pro vider Unavailable Carina Rush DO Unavailable Unavailable Jose Ozuna MD Unavailable [phone] Gerri Arriaza NP Unavailable [phone] Yanely Mcgraw MD Primary Care Provider Unavaila ble Encounter Details Date Type Department Care Team Description 02/04/2021 Tile Mechanic Helper Report Medical Records [address] [place] [address] Ale Machuca Social History Tobacco Use Types [...] on filedocumented in this encounter Care Teams Hatchery Helper Relationship Specialty Start Date End Date Carina Rush DO PCP - General Internal Medicine 10/18/14 06/27/21 Yanely Mcgraw MD [address] [place] [address] [address] [place] [address] PCP - General Internal Medicine 06/28/21 Carina Rush DO Internal Medicine 04/06/14 07/06/24 Jose Ozuna MD [address] [place] [address] [address] [place] [address] Kennel Helper Cardiovascular Disease 10/15/20 Gerri Arriaza NP [address] [place] [address] [address] [place] [address] Nurse Practitioner Cardiology 10/15/20 documented as of this encounter
--- OUTSIDE RECORDS SUMMARY | 2025-07-03 12:38 | XMS_ITS | Encounter Summary ---
Author Organization [facility] Address [address] [place] [address] Care Team Providers Care Internal Revenue Service Agent Name Role Phone Carina Rush DO Primary Care Pro vider Unavailable Carina Rush DO Unavailable Unavailable Jose Ozuna MD Unavailable [phone] Gerri Arriaza NP Unavailable [phone] Yanely Mcgraw MD Primary Care Provider Unavaila ble Encounter Details Date Type Department Care Team Description 10/06/2016 Manager Non Profit Report Medical Records [address] [place] [id number] Niko Aceves MD Social History Tobacco Use [...] on filedocumented in this encounter Care Teams Internal Revenue Service Agent Relationship Specialty Start Date End Date Carina Rush DO PCP - General Internal Medicine 10/18/14 06/27/21 Yanely Mcgraw MD [address] [place] [address] [address] [place] [address] PCP - General Internal Medicine 06/28/21 Carina Rush DO Internal Medicine 04/06/14 07/06/24 Jose Ozuna MD [address] [place] [address] [address] [place] [address] Regional Engineer Cardiovascular Disease 10/15/20 Gerri Arriaza NP [address] [place] [address] [address] [place] [address] Nurse Practitioner Cardiology 10/15/20 documented as of this encounter
== END 2025-07-03 10:11 | disposition home or self-care (01) ==
LOC: HO.HMCC 10:04
PROVIDERS: PCP Internal Medicine; Visit Provider Internal Medicine
DX: E53.8 Deficiency of other specified B group vitamins (principal)

== ENCOUNTER → 2025-07-03 10:04 | Outpatient (BNVA) | payer BC, SELFPAY | PROVIDERS: PCP Internal Medicine; Visit Provider Internal Medicine | DX: E53.8 Deficiency of other specified B group vitamins (principal) | CPT/HCPCS: 96372; J3420 ==

== ENCOUNTER 2025-07-13 09:42 | Outpatient (AMB) | payer BC, SELFPAY ==
[2025-07-13 09:49] VITALS: BP 148/90; PULSE 80; RESP 16; TEMP 36.8; O2SAT 96; BMI 33.7
--- NOTE | 2025-07-13 09:49 | AM.OFFWIN_ITS ---
Intake Vital Signs 07/13/25 09:49 Height 5 ft 9 in Weight 228 lb BMI 33.7 BP 148/90 H Blood Pressure Location Lt brachial Position Sitting Respiration 16 Pulse 80 Pulse Source Pulse Oximeter Temp 98.3 F Temp Source Oral Pulse Oximetry (%) 96 Oxygen Delivery Method Room Air Intake Visit Reasons: EP stomach pain Patient Tobacco Use Status: Former Tobacco user Supervisor Roving Required: No Accompanied by: Self / Same As Patient Allergies THEODORE Inhibitors Adverse Reaction (Intermediate, Verified 07/13/25 09:50) cough losartan Adverse Reaction (Intermediate, Verified 07/13/25 09:50) Cough Medication List - Last Reconciled 07/13/25 by Andria Vázquez NP albuterol sulfate 90 mcg/actuation 2 puffs inhalation Q6H PRN amlodipine 5 mg PO DAILY aspirin 81 mg PO DAILY atorvastatin 80 mg PO DAILY cyanocobalamin (vitamin B-12) 1,000 mcg subcut Q4W finasteride 5 mg PO DAILY hydralazine 100 mg PO BID metoclopramide HCl (Reglan) 5 mg PO Q6H metoprolol tartrate 50 mg PO BID ondansetron 8 mg PO Q8H tamsulosin (Flomax) 0.4 mg PO BEDTIME HPI HPI Comments History of Present Illness Details 65 y/o Male patient who presents to the walk in clinic with c/o A bdominal pain cramping associated with Diarrhea since yesterday afternoon. Reports that his has similar symptoms at home. He can't recall if he ate anything Bad for lunch yesterday. Denies Nausea, vomiting, Fevers or chills. Denies URI Symptoms. [facility] Medical History (Updated 07/13/25 @ 10:06 by Andria Vázquez NP) Generalized abdominal cramping Annual physical exam Cough Vitamin B 12 deficiency HTN (hypertension) CAD (coronary artery disease) Hyperlipidemia Surgical History S/P CABG x 3 Social History Housing: House Patient Tobacco Use Status: Former Tobacco user Years Smoked: 40 years e-Cigarette/Vaping Use: Never Used service: No Current occupational status: employed Current occupation: [employer] Cognitive needs: No Hearing needs: No Vision needs: No Review of Systems Const All systems reviewed & are unremarkable except as noted in HPI and below Physical Exam Vital Signs: Last Vital Signs Temp 98.3 F 07/13/25 09:49 Pulse 80 07/13/25 09:49 Resp 16 07/13/25 09:49 BP 148/90 H 07/13/25 09:49 Pulse Ox 96 07/13/25 09:49 Oxygen Delivery Method Room Air 07/13/25 09:49 BMI result Body Mass Index 33.7 Const General: no acute distress Nutritional Appearance: obese Orientation/consciousness: patient oriented x3 Resp Effort & Inspection: normal respiratory effort Cardio Heart sounds: S1 normal heart sound present and S2 normal heart sound present GI Inspection: Yes obesity Palpation (GI): Soft to palpation, not firm, Tenderness to palpation present (GI) in the epigastrum, in the LLQ, in the LUQ and periumbilically, no guarding, not rigid and No hepatosplenomegaly present Auscultation: normal bowel sounds Neuro General: patient oriented x3, gait normal and moves all extremities Psych Speech and movement: Normal speech and movement present Assessment & Plan Assessment & Plan (1) Generalized abdominal cramping: Code(s): R10.84 - Generalized abdominal pain Plan: Mostly Gastritis Viral vs Bacterial. Ordered Zofran and Reglan for symptom relief BLAND diet and plenty of Fluids. Advised to Take Imodium OTC if Diarrhea not resolved. Medications: New metoclopramide HCl (Reglan) 5 mg PO Q6H 20 tabs 0RF R10.84 - Generalized abdominal pain ondansetron 8 mg PO Q8H 10 tabs 0RF R10.84 - Generalized abdominal pain Coding Level of Care Code Est Pt Level 4 (26421) Diagnoses Generalized abdominal cramping R10.84 Time Spent (min) 20
--- OUTSIDE RECORDS SUMMARY | 2025-07-13 11:30 | XMS_ITS | Encounter Summary ---
Author Organization [facility] Address [address] [facility] [address] [place] [address] Phone Care Team Providers Care Potline Monitor Name Role Phone Unavailable Primary Care Provider Unavailabl e Encounter Details Date Type Department Care Team (Late st Contact Info) Description 01/28/2021 Orders Only [facility] [address] [facility] [address] [place] [phone] Shabbir Menezes MD [address] [facility] [address] [place] [phone] Primary hypertension Social History Tobacco Use Types [...]
--- OUTSIDE RECORDS SUMMARY | 2025-07-13 11:30 | XMS_ITS | Clinical Summary ---
Author Organization [facility] Facility Address [address] [place] [address] Care Team Providers Care Forestry Farm Laborer Name Role Phone Unavailable Primary Care Provider [...] patient's age to complete this topic [place] [address] [address] [place] [address] [facility]
--- OUTSIDE RECORDS SUMMARY | 2025-07-13 11:30 | XMS_ITS | Clinical Summary ---
Author Organization [address] [place] [address] Address [address] [place] [address] Phone Care Team Providers Care Tattoo Technician Name Role Phone Yanely Mcgraw MD Primary Care Provider [phone] Allergies Active Allergy Reactions Criticality Noted Date [...] and the less than 1% risk for [place], stroke or . He agrees to proceed [...] Blood Venous blood specimen / Unknown Result [facility] Historical Provider LAB BLOOD ORDERABLES Meghna [...] and common iliac arteries. Carina Vail DO [facility] US PROCEDURES Final Result * Colonoscopy (08/17/2017) Colonoscopy No interpretation , abstracted Anatomical Region Laterality Modality Other Result [facility] Historical Provider HEALTH MAINTENANCE Final Result * Hepatitis C Screening (06/30/2016) Hepatitis C Screening Abstracted Historical Provider HEALTH MAINTENANCE Final Result from Last 3 Months or Most Recently Relevant to Health Maintenance Insurance [employer] [id number] [facility] Care Teams Tattoo Technician Relationship Specialty Start Date End Date Yanely Mcgraw MD [address] [facility] [place] [phone] PCP - General Internal Medicine 10/03/24
== END 2025-07-13 10:08 | disposition home or self-care (01) ==
PROVIDERS: PCP Internal Medicine; Visit Provider Nurse Practitioner Family
DX: R10.84 Generalized abdominal pain (principal)

== ENCOUNTER 2025-07-31 10:14 | Outpatient (AMB) | payer BC, SELFPAY ==
--- OUTSIDE RECORDS SUMMARY | 2025-07-31 10:16 | XMS_ITS | Encounter Summary ---
Author Organization [facility] Address [address] [facility] [address] [place] [address] Phone Care Team Providers Care Die Designer Apprentice Name Role Phone Unavailable Primary Care Provider Unavailabl e Encounter Details Date Type Department Care Team (Late st Contact Info) Description 01/28/2021 Orders Only [facility] [address] [facility] [address] [place] [address] Shabbir Menezes MD [address] [facility] [address] [place] [phone] Primary hypertension Social History Tobacco Use Types [...]
--- OUTSIDE RECORDS SUMMARY | 2025-07-31 10:16 | XMS_ITS | Clinical Summary ---
Author Organization [facility] Facility Address [address] [place] [address] Care Team Providers Care Agile Qa Tester Name Role Phone Unavailable Primary Care Provider [...] patient's age to complete this topic [place] [address] [place] [address] [facility]
--- OUTSIDE RECORDS SUMMARY | 2025-07-31 10:16 | XMS_ITS | Clinical Summary ---
Author Organization [address] [place] [address] Address [address] [place] [address] Phone Care Team Providers Care Video Game Script Writer Name Role Phone Yanely Mcgraw MD Primary Care Provider [phone] Allergies Active Allergy Reactions Criticality Noted Date [...] and the less than 1% risk for [place], stroke or . He agrees to proceed [...] urticaria 02/15/2015 Vitamin B12 deficiency 02/15/2015 Immunizations Immunization Administration Dates Next Due Tdap Tetanus diptheria [...] Blood Venous blood specimen / Unknown Result [facility] Historical Provider LAB BLOOD ORDERABLES Meghna l [...] and common iliac arteries. Carina Vail DO [facility] US PROCEDURES Final Result * Colonoscopy (08/17/2017) Colonoscopy No interpretation , abstracted Anatomical Region Laterality Modality Other Result [facility] Historical Provider HEALTH MAINTENANCE Final Result * Hepatitis C Screening (06/30/2016) Hepatitis C Screening Abstracted Historical Provider HEALTH MAINTENANCE Final Result from Last 3 Months or Most Recently Relevant to Health Maintenance Insurance [employer] [id number] [facility] Care Teams Video Game Script Writer Relationship Specialty Start Date End Date Yanely Mcgraw MD [address] [facility] [place] [phone] PCP - General Internal Medicine 10/03/24
--- NOTE | 2025-07-31 10:24 | AM.OFFVISNUR ---
Intake Visit Reasons: B12 shot Intake Note: Pt arrived for monthly B-12 injection Allergies THEODORE Inhibitors Adverse Reaction (Intermediate, Verified 07/13/25 09:50) cough losartan Adverse Reaction (Intermediate, Verified 07/13/25 09:50) Cough Office Meds cyanocobalamin (vitamin B-12) 1,000 mcg/mL injection solution Performing Provider: Yanely Mcgraw MD Performing [place] [facility] [place] [facility] Administered by: Lisa Graham RN on 07/31/25 10:27 Dose Route Admin Location Dispensed Lot Number Expiration Date [facility] Vessel Scrapper Helper 1,000 mcg IM Left deltoid 1 mL [id number] 09/18/26 40761-793-33 [employer] Total Dispensed Waste 1 mL 0 % Comments: Pt supplied Assessment & Plan Assessment & Plan Orders: Orders AMB Vitamin B12 Injection Patient Supplied Today E53.8 - Deficiency of other specified B group vitamins Coding
== END 2025-07-31 10:25 | disposition home or self-care (01) ==
LOC: HO.HMCC 10:14
PROVIDERS: PCP Internal Medicine; Visit Provider Internal Medicine
DX: E53.8 Deficiency of other specified B group vitamins (principal)

== ENCOUNTER → 2025-07-31 10:14 | Outpatient (BNVA) | payer BC, SELFPAY | PROVIDERS: PCP Internal Medicine; Visit Provider Internal Medicine | DX: E53.8 Deficiency of other specified B group vitamins (principal) | CPT/HCPCS: 96372; J3420 ==

== ENCOUNTER 2025-08-28 09:55 | Outpatient (AMB) | payer BC, SELFPAY ==
--- NOTE | 2025-08-28 10:07 | AM.OFFVISNUR ---
Intake Visit Reasons: B-12 shot Intake Note: Pt arrived for monthly B-12 injection Allergies THEODORE Inhibitors Adverse Reaction (Intermediate, Verified 07/13/25 09:50) cough losartan Adverse Reaction (Intermediate, Verified 07/13/25 09:50) Cough Office Meds cyanocobalamin (vitamin B-12) 1,000 mcg/mL injection solution Performing Provider: Yanely Mcgraw MD Performing Location[place] [facility] [place] [facility] Administered by: Lisa Graham RN on 08/28/25 10:08 Dose Route Admin Location Dispensed Lot Number Expiration Date [facility] Die Machine Operator 1,000 mcg IM left deltoid 1 mL [id number] 01/17/27 95655-471-58 [employer] Total Dispensed Waste 1 mL 0 % Comments: Pt supplied Assessment & Plan Assessment & Plan Orders: Orders AMB Vitamin B12 Injection Patient Supplied Today E53.8 - Deficiency of other specified B group vitamins Coding
--- OUTSIDE RECORDS SUMMARY | 2025-08-28 11:22 | XMS_ITS | Clinical Summary ---
Author Organization [facility] Facility Address [address] [place] [address] Care Team Providers Care Treasurer Name Role Phone Unavailable Primary Care Provider [...] patient's age to complete this topic [place] [address] [place] [address] [facility]
--- OUTSIDE RECORDS SUMMARY | 2025-08-28 11:22 | XMS_ITS | Clinical Summary ---
Author Organization [address] [place] [address] Address [address] [place] [address] Phone Care Team Providers Care Box Toe Stitcher Name Role Phone Yanely Mcgraw MD Primary Care Provider [phone] Allergies Active Allergy Reactions Criticality Noted Date [...] and the less than 1% risk for [place], stroke or . He agrees to proceed [...] Smoking Tobacco: Former Cigarettes 0.5 Q uit: 10/19/2007 Smokeless Tobacco: Never Alcohol [...] Blood Venous blood specimen / Unknown Result [facility] Historical Provider LAB BLOOD ORDERABLES Meghna l [...] and common iliac arteries. Carina Vail DO [facility] US PROCEDURES Final Result * Colonoscopy (08/17/2017) Pathologist [facility] Colonoscopy No interpretation , abstracted Anatomical Region Laterality Modality Other Result [facility] Provider HEALTH MAINTENANCE Final Result * Hepatitis C Screening (06/30/2016) Pathologist [facility] Hepatitis C Screening Abstracted Result [facility] Provider HEALTH MAINTENANCE Final Result from Last 3 Months or Most Recently Relevant to Health Maintenance Insurance [employer] [id number] [facility] Care Teams Box Toe Stitcher Relationship Specialty Start Date End Date Yanely Mcgraw MD [address] [facility] [place] [phone] PCP - General Internal Medicine 10/03/24
--- OUTSIDE RECORDS SUMMARY | 2025-08-28 11:22 | XMS_ITS | Encounter Summary ---
Author Organization [facility] Address [address] [facility] [address] [place] [address] Phone Care Team Providers Care Prepared Foods Team Leader Name Role Phone Unavailable Primary Care Provider Unavailabl e Encounter Details Date Type Department Care Team (Late st Contact Info) Description 01/28/2021 Orders Only [facility] [address] [facility] [address] [place] [address] Shabbir Menezes MD [address] [facility] [address] [place] [phone] Primary hypertension Social History Tobacco Use Types [...]
== END 2025-08-28 10:13 | disposition home or self-care (01) ==
LOC: HO.HMCC 09:55
PROVIDERS: PCP Internal Medicine; Visit Provider Internal Medicine
DX: E53.8 Deficiency of other specified B group vitamins (principal)

== ENCOUNTER → 2025-08-28 09:55 | Outpatient (BNVA) | payer BC, SELFPAY | PROVIDERS: PCP Internal Medicine; Visit Provider Internal Medicine | DX: E53.8 Deficiency of other specified B group vitamins (principal) | CPT/HCPCS: 96372; J3420 ==

== ENCOUNTER 2025-09-27 09:51 | Outpatient (AMB) | payer BC, SELFPAY ==
--- NOTE | 2025-09-27 10:54 | AM.OFFVISNUR ---
Intake Visit Reasons: B12 Intake Note: Pt arrived for monthly B-12 injection Allergies THEODORE Inhibitors Adverse Reaction (Intermediate, Verified 07/13/25 09:50) cough losartan Adverse Reaction (Intermediate, Verified 07/13/25 09:50) Cough Office Meds cyanocobalamin (vitamin B-12) 1,000 mcg/mL injection solution Performing Provider: Yanely Mcgraw MD Performing Location: [facility] Adult Primary [facility] Administered by: Lisa Graham RN on 09/27/25 10:55 Dose Route Admin Location Dispensed Lot Number Expiration Date [facility] Senior Research Executive 1,000 mcg IM right deltoid 1 mL [id number] 01/17/27 65814-833-74 [employer] Total Dispensed Waste 1 mL 0 % Comments: pt supplied Assessment & Plan Assessment & Plan Orders: Orders AMB Vitamin B12 Injection Patient Supplied Today E53.8 - Deficiency of other specified B group vitamins Coding
== END 2025-09-27 15:37 | disposition home or self-care (01) ==
LOC: HO.HMCC 09:51
PROVIDERS: PCP Internal Medicine; Visit Provider Internal Medicine
DX: E53.8 Deficiency of other specified B group vitamins (principal)

== ENCOUNTER → 2025-09-27 09:51 | Outpatient (BNVA) | payer BC, SELFPAY | PROVIDERS: PCP Internal Medicine; Visit Provider Internal Medicine | DX: E53.8 Deficiency of other specified B group vitamins (principal) | CPT/HCPCS: 96372; J3420 ==